=== PATIENT | female | born 1965 | race African-American/Black ===

== ENCOUNTER 2018-04-11 12:47 | Emergency (ER) | payer MEDICAID ==
[~2018-04-11] VITALS: Ht 167.6 cm; Wt 64.0 kg
[~2018-04-11 12:47] MED LIST: AMLO10TA4 PO; LISI-186 PO
[2018-04-11] MEDS ORDERED: MORPHINE SULFATE 4 MG/ML CPJ (NOT FOR IM USE) IV ONE (13:45)
[2018-04-11] MEDS ORDERED: HYDRALAZINE 20MG/ML VIAL IV ONE (19:00)
[2018-04-11 19:27] VITALS: BP 158/103
== END 2018-04-11 19:28 | disposition short-term general hospital (02) ==
LOC: ER 12:47
DX: S02.2XXA Fracture of nasal bones, initial encounter for closed fracture (principal); S09.8XXA Other specified injuries of head, initial encounter; I10 Essential (primary) hypertension; Y08.89XA Assault by other specified means, initial encounter; Y93.89 Activity, other specified; Y92.89 Other specified places as the place of occurrence of the external cause; Y99.8 Other external cause status; Z98.890 Other specified postprocedural states
CPT/HCPCS: 70450; 70486; 96374; 96375; 99285; J0360; J2270

== ENCOUNTER 2018-05-03 02:20 | Inpatient (IN) | payer MEDICAID ==
[~2018-05-03] VITALS: Ht 167.6 cm; Wt 51.9 kg
[2018-05-03] MEDS ORDERED: ASPIRIN 81MG TABLET PO ONE (03:15)
[2018-05-03 03:23] LABS: BASOPHILS % 0.9 % (0.0-2.0); EOSINOPHILS % 1.4 % (0.0-5.0); HEMATOCRIT. 43.9 % (36.0-48.0); HEMOGLOBIN. 14.3 g/dL (12.0-16.0); LYMPHOCYTES % 29.4 % (20.0-50.0); MEAN CORPUSCULAR HEMOGLOBIN 30.8 pg (28.0-32.0); MEAN CORPUSCULAR VOLUME 94.4 fL (81.0-99.0); MEAN PLATELET VOLUME 8.4 fl (7.4-10.4); MONOCYTES % 6.1 % (2.0-8.0); NEUTROPHILS % 62.2 % (40.0-76.0); PLATELET 237 x1000/uL (130-400); RED BLOOD CELL COUNT 4.65 mill/uL (4.2-5.4); RED CELL DISTRIBUTION WIDTH 13.7 % (11.6-14.6)
[2018-05-03 03:28] LABS: CHLORIDE 109 mEq/L (98-107)
[2018-05-03] MEDS ORDERED: ONDANSETRON HCL 4MG/2ML INJ IV PRN (06:00)
[2018-05-03] MEDS ORDERED: ACETAMINOPHEN 325MG TABLET PO PRN (06:00)
[2018-05-03] MEDS ORDERED: GUAIFENESIN 200MG/10ML SUGAR FREE UDC PO PRN (06:00)
[2018-05-03] MEDS ORDERED: CLONIDINE 0.1MG TABLET PO PRN (06:00)
[2018-05-03] MEDS ORDERED: HYDROMORPHONE HCL/PF 2MG/ML CPJ IV PRN (06:00)
[2018-05-03] MEDS ORDERED: DOCUSATE SODIUM 100MG CAPSULE PO PRN (06:00)
[2018-05-03] MEDS: HYDROCODONE/ACETAMINOPHEN 5/325MG TABLET PO PRN ×3 (09:40→20:01)
[2018-05-03 11:00] VITALS: BP 151/87
[2018-05-03 12:07] VITALS: BP 151/87
[2018-05-03] MEDS: ASPIRIN 81MG EC TABLET PO SCH (13:47)
[2018-05-03] MEDS: AMLODIPINE 10MG TABLET PO SCH (13:47)
[2018-05-03] MEDS: ENOXAPARIN 40MG/0.4ML SYR SUBCUT SCH (13:54)
[2018-05-03 16:27] VITALS: BP 121/85
[2018-05-03 20:00] VITALS: BP 126/81
[2018-05-04] VITALS: BP 137/82
[2018-05-04 04:00] VITALS: BP 132/94
[2018-05-04] MEDS: HYDROCODONE/ACETAMINOPHEN 5/325MG TABLET PO PRN (06:18)
[2018-05-04 07:17] LABS: BASOPHILS % 1.3 % (0.0-2.0); EOSINOPHILS % 3.7 % (0.0-5.0); HEMATOCRIT. 42.5 % (36.0-48.0); HEMOGLOBIN. 13.8 g/dL (12.0-16.0); MEAN CORPUSCULAR HEMOGLOBIN 30.8 pg (28.0-32.0); MEAN CORPUSCULAR VOLUME 94.7 fL (81.0-99.0); MEAN PLATELET VOLUME 8.7 fl (7.4-10.4); PLATELET 224 x1000/uL (130-400); RED BLOOD CELL COUNT 4.48 mill/uL (4.2-5.4); RED CELL DISTRIBUTION WIDTH 13.7 % (11.6-14.6)
[2018-05-04 07:28] LABS: *AMPHETAMINES SCREEN URINE NEGATIVE (NEGATIVE); *BARBITURATES SCREEN URINE NEGATIVE (NEGATIVE); CANNABINOID URINE SCREEN NEGATIVE (NEGATIVE); METHADONE URINE SCREEN NEGATIVE (NEGATIVE); OPIATES URINE SCREEN PRESUMTIVE POSITIVE (NEGATIVE); PHENCYCLIDINE URINE SCREEN NEGATIVE (NEGATIVE)
[2018-05-04 07:29] LABS: *BENZODIAZEPINES SCREEN URINE NEGATIVE (NEGATIVE); *COCAINE SCREEN URINE PRESUMTIVE POSITIVE (NEGATIVE)
[2018-05-04 08:00] VITALS: BP 128/71
[2018-05-04 08:00] LABS: CHLORIDE 111 mEq/L (98-107)
[2018-05-04 08:13] LABS: LDL CHOLESTEROL 90 mg/dL (5-100)
[2018-05-04 08:14] LABS: HDL CHOLESTEROL 43 mg/dL (40-59)
[2018-05-04] MEDS ORDERED: REGADENOSON 0.4 MG/5 ML IV ONE (09:00)
[2018-05-04] MEDS: AMLODIPINE 10MG TABLET PO SCH (09:03)
[2018-05-04] MEDS: ASPIRIN 81MG EC TABLET PO SCH (09:03)
[2018-05-04 10:42] LABS: T4 FREE 0.88 ng/dL (0.76-1.46)
[2018-05-04 12:00] VITALS: BP 134/89
[2018-05-04] MEDS: ENOXAPARIN 40MG/0.4ML SYR SUBCUT SCH (12:00)
[2018-05-04 15:53] LABS: CREATINE KINASE 114 IU/L (26-192)
[2018-05-04 15:54] LABS: CREATINE KINASE MB FRACTION < 1.0 ng/mL (0.5-3.6)
[2018-05-04 16:08] VITALS: BP 139/75
[2018-05-05] MEDS ORDERED: ASPIRIN 81MG TABLET PO SCH (09:00)
== END 2018-05-04 18:10 | disposition home or self-care (01) | DRG 198 ==
LOC: ER 02:20 → 5WST 05:34 → ENRESERV 10:18
PROVIDERS: ADMIT Hospitalist; ATTEND Hospitalist
DX: I24.9 Acute ischemic heart disease, unspecified (principal); N17.9 Acute kidney failure, unspecified; E87.8 Other disorders of electrolyte and fluid balance, not elsewhere classified; F17.200 Nicotine dependence, unspecified, uncomplicated; F14.10 Cocaine abuse, uncomplicated; I10 Essential (primary) hypertension; Z82.49 Family history of ischemic heart disease and other diseases of the circulatory system; Z79.899 Other long term (current) drug therapy
CPT/HCPCS: 36415; 71045; 80061; 80305; 82550; 82553; 83036; 83880; 84439; 84443; 84484; 85379; 93005; 93306; 93970; 99285; J1650

== ENCOUNTER 2018-08-20 19:09 | Inpatient (IN) | payer MEDICAID ==
[~2018-08-20] VITALS: Ht 167.6 cm; Wt 60.3 kg
[2018-08-20] MEDS ORDERED: SODIUM CHLORIDE 0.9% 1,000 ML IV ONE (19:23)
[2018-08-20] MEDS ORDERED: ONDANSETRON HCL 4MG/2ML INJ IV NR (19:23)
[2018-08-20 19:54] LABS: BASOPHILS % 1.1 % (0.0-2.0); EOSINOPHILS % 1.3 % (0.0-5.0); HEMATOCRIT. 40.1 % (36.0-48.0); HEMOGLOBIN. 13.4 g/dL (12.0-16.0); LYMPHOCYTES % 31.9 % (20.0-50.0); MEAN CORPUSCULAR HEMOGLOBIN 31.5 pg (28.0-32.0); MEAN CORPUSCULAR VOLUME 94.4 fL (81.0-99.0); MEAN PLATELET VOLUME 7.6 fl (7.4-10.4); MONOCYTES % 7.7 % (2.0-8.0); PLATELET 163 x1000/uL (130-400); RED BLOOD CELL COUNT 4.25 mill/uL (4.2-5.4); RED CELL DISTRIBUTION WIDTH 14.1 % (11.6-14.6)
[2018-08-20 20:00] LABS: CHLORIDE 112 mEq/L (98-107)
[2018-08-20 20:04] LABS: ETHANOL BLOOD < 10 mg/dL
[2018-08-20 22:52] LABS: CLARITY URINE CLEAR (CLEAR); COLOR URINE YELLOW (YELLOW); KETONES URINE TRACE (NEGATIVE); LEUKOCYTE ESTERASE URINE TRACE (NEGATIVE); NITRITE URINE NEGATIVE (NEGATIVE); OCCULT BLOOD URINE NEGATIVE (NEGATIVE); PH URINE 5.5 (4.5-8.0); PROTEIN URINE 1+ (NEGATIVE); SPECIFIC GRAVITY URINE 1.022 (1.005-1.030)
[2018-08-20 23:03] LABS: *AMPHETAMINES SCREEN URINE NEGATIVE (NEGATIVE); *BARBITURATES SCREEN URINE NEGATIVE (NEGATIVE); *BENZODIAZEPINES SCREEN URINE NEGATIVE (NEGATIVE); *COCAINE SCREEN URINE PRESUMTIVE POSITIVE (NEGATIVE); CANNABINOID URINE SCREEN NEGATIVE (NEGATIVE); OPIATES URINE SCREEN NEGATIVE (NEGATIVE); PHENCYCLIDINE URINE SCREEN PRESUMTIVE POSITIVE (NEGATIVE)
[2018-08-20 23:04] LABS: METHADONE URINE SCREEN NEGATIVE (NEGATIVE)
[2018-08-21] VITALS (8 sets, daily range): BP systolic 125–143; BP diastolic 80–95
[2018-08-21] MEDS ORDERED: ACETAMINOPHEN 325MG TABLET PO PRN
[2018-08-21] MEDS ORDERED: ONDANSETRON HCL 4MG/2ML INJ IV PRN
[2018-08-21] MEDS ORDERED: HYDROCODONE/ACETAMINOPHEN 5/325MG TABLET PO PRN
[2018-08-21] MEDS: SODIUM CHLORIDE 0.9% 1,000 ML IV SCH (07:15)
[2018-08-21 07:39] LABS: CHLORIDE 116 mEq/L (98-107)
[2018-08-21 07:41] LABS: EOSINOPHILS % 2.4 % (0.0-5.0); HEMATOCRIT. 39.8 % (36.0-48.0); HEMOGLOBIN. 13.3 g/dL (12.0-16.0); LYMPHOCYTES % 38.4 % (20.0-50.0); MEAN CORPUSCULAR HEMOGLOBIN 31.4 pg (28.0-32.0); MEAN CORPUSCULAR VOLUME 93.8 fL (81.0-99.0); MEAN PLATELET VOLUME 7.8 fl (7.4-10.4); MONOCYTES % 8.4 % (2.0-8.0); NEUTROPHILS % 49.8 % (40.0-76.0); PLATELET 173 x1000/uL (130-400); RED BLOOD CELL COUNT 4.24 mill/uL (4.2-5.4); RED CELL DISTRIBUTION WIDTH 14.2 % (11.6-14.6)
[2018-08-21] MEDS ORDERED: APIXABAN 5 MG TABLET PO SCH (11:45)
[2018-08-21] MEDS: ENOXAPARIN 40MG/0.4ML SYR SUBCUT SCH (17:25)
[2018-08-22] VITALS: BP 142/89
[2018-08-22] MEDS: SODIUM CHLORIDE 0.9% 1,000 ML IV SCH ×2 (00:05→13:09)
[2018-08-22 04:00] VITALS: BP 143/97
[2018-08-22 08:00] VITALS: BP 145/97
[2018-08-22] MEDS: ENOXAPARIN 40MG/0.4ML SYR SUBCUT SCH (09:11)
[2018-08-22] MEDS ORDERED: ASPIRIN 81MG EC TABLET PO SCH (11:45)
[2018-08-22 12:00] VITALS: BP 149/116
[2018-08-22] MEDS ORDERED: ENOXAPARIN 60MG/0.6ML SYR SUBCUT SCH (18:00)
[2018-08-22] MEDS ORDERED: ATORVASTATIN CALCIUM 20MG TABLET PO SCH (21:00)
== END 2018-08-22 14:40 | disposition left against medical advice (07) | DRG 48 ==
LOC: ER 20:19 → 5WST 22:23 → EDBEDREQ 22:24 → EDBEDREQTM 22:24 → SUPCPDRO 23:48 → ENRESERV 08-21 03:08 → 5WST 08-21 05:41
PROVIDERS: ADMIT Hospitalist; ATTEND Hospitalist
DX: G90.8 Other disorders of autonomic nervous system (principal); N17.0 Acute kidney failure with tubular necrosis; I95.9 Hypotension, unspecified; F19.10 Other psychoactive substance abuse, uncomplicated; F14.90 Cocaine use, unspecified, uncomplicated; I10 Essential (primary) hypertension; F17.210 Nicotine dependence, cigarettes, uncomplicated
CPT/HCPCS: 36415; 71045; 80305; 80320; 83605; 83880; 84484; 93005; 93306; 93970; 96372; 96374; 99285; J1650; J2405; G0480

== ENCOUNTER 2018-09-12 11:09 | Inpatient (IN) | payer MEDICAID ==
[~2018-09-12] VITALS: Ht 167.6 cm; Wt 49.9 kg
[2018-09-12] MEDS ORDERED: ASPIRIN 81MG TABLET PO ONE (12:15)
[2018-09-12 12:28] LABS: HEMATOCRIT. 43.8 % (36.0-48.0); HEMOGLOBIN. 14.3 g/dL (12.0-16.0); MEAN CORPUSCULAR HEMOGLOBIN 31.4 pg (28.0-32.0); MEAN CORPUSCULAR VOLUME 96.4 fL (81.0-99.0); RED BLOOD CELL COUNT 4.55 mill/uL (4.2-5.4); RED CELL DISTRIBUTION WIDTH 14.7 % (11.6-14.6)
[2018-09-12 12:33] LABS: CHLORIDE 114 mEq/L (98-107)
[2018-09-12 12:36] LABS: CLARITY URINE CLOUDY (CLEAR); COLOR URINE DARK YELLOW (YELLOW); INR 1.1; KETONES URINE TRACE (NEGATIVE); LEUKOCYTE ESTERASE URINE 1+ (NEGATIVE); NITRITE URINE NEGATIVE (NEGATIVE); OCCULT BLOOD URINE NEGATIVE (NEGATIVE); PARTIAL THROMBOPLASTIN TIME 20.3 sec (23.4-31.0); PROTEIN URINE TRACE (NEGATIVE); PROTHROMBIN TIME 10.8 sec (9.6-11.0)
[2018-09-12 12:40] LABS: *AMPHETAMINES SCREEN URINE PRESUMTIVE POSITIVE (NEGATIVE); CANNABINOID URINE SCREEN NEGATIVE (NEGATIVE); OPIATES URINE SCREEN NEGATIVE (NEGATIVE); PHENCYCLIDINE URINE SCREEN PRESUMTIVE POSITIVE (NEGATIVE)
[2018-09-12 12:41] LABS: *BARBITURATES SCREEN URINE NEGATIVE (NEGATIVE); *BENZODIAZEPINES SCREEN URINE NEGATIVE (NEGATIVE); *COCAINE SCREEN URINE PRESUMTIVE POSITIVE (NEGATIVE); METHADONE URINE SCREEN NEGATIVE (NEGATIVE)
[2018-09-12] MEDS ORDERED: ENOXAPARIN 40MG/0.4ML SYR SUBCUT ONE (13:15)
[2018-09-12 15:40] VITALS: BP_SYST 141; BP_SYST 144; BP_DIAS 99
[2018-09-12 16:00] VITALS: BP 136/93
[2018-09-12] MEDS ORDERED: NA PHOS,M-B/NA PHOS,DI-BA ENEMA 118ML PR PRN (17:30)
[2018-09-12] MEDS ORDERED: CLONIDINE 0.1MG TABLET PO PRN (17:30)
[2018-09-12] MEDS ORDERED: LORAZEPAM 2MG/ML CPJ IV PRN (17:30)
[2018-09-12] MEDS ORDERED: HYDRALAZINE 20MG/ML VIAL IV PRN (17:30)
[2018-09-12] MEDS ORDERED: MAGNESIUM/ALUMINUM HYDROXIDE/SIMETHICONE 30ML UDC PO PRN (17:30)
[2018-09-12] MEDS ORDERED: HYDROMORPHONE HCL/PF 2MG/ML CPJ IV PRN (17:30)
[2018-09-12] MEDS ORDERED: HYDROCODONE/ACETAMINOPHEN 10/325MG TABLET PO PRN (17:30)
[2018-09-12] MEDS ORDERED: DOCUSATE SODIUM 100MG CAPSULE PO PRN (17:30)
[2018-09-12] MEDS ORDERED: IPRATROPIUM/ALBUTEROL 0.5-3(2.5)MG/3ML NEB INH PRN (17:30)
[2018-09-12] MEDS ORDERED: ONDANSETRON HCL 4MG/2ML INJ IV PRN (17:30)
[2018-09-12] MEDS ORDERED: GUAIFENESIN 200MG/10ML SUGAR FREE UDC PO PRN (17:30)
[2018-09-12] MEDS ORDERED: DIPHENHYDRAMINE 50MG/ML VIAL IV PRN (17:30)
[2018-09-12] MEDS ORDERED: ACETAMINOPHEN 325MG TABLET PO PRN (17:30)
[2018-09-12 20:00] VITALS: BP 134/60
[2018-09-13] VITALS: BP 154/91
[2018-09-13 00:17] LABS: CREATINE KINASE MB FRACTION 1.9 ng/mL (0.5-3.6)
[2018-09-13 04:00] VITALS: BP 160/93
[2018-09-13] MEDS: SODIUM CHLORIDE 0.9% INJ 3ML FLUSH IVF SCH ×3 (05:09→21:16)
[2018-09-13] MEDS: ASPIRIN 81MG EC TABLET PO SCH (08:14)
[2018-09-13] MEDS: ENOXAPARIN 40MG/0.4ML SYR SUBCUT SCH (08:14)
[2018-09-13 09:29] LABS: BASOPHILS % 0.4 % (0.0-2.0); EOSINOPHILS % 1.8 % (0.0-5.0); HEMATOCRIT. 40.9 % (36.0-48.0); HEMOGLOBIN. 13.3 g/dL (12.0-16.0); LYMPHOCYTES % 16.8 % (20.0-50.0); MEAN CORPUSCULAR VOLUME 95.4 fL (81.0-99.0); MEAN PLATELET VOLUME 8.8 fl (7.4-10.4); MONOCYTES % 5.6 % (2.0-8.0); NEUTROPHILS % 75.4 % (40.0-76.0); PLATELET 234 x1000/uL (130-400); RED BLOOD CELL COUNT 4.29 mill/uL (4.2-5.4); RED CELL DISTRIBUTION WIDTH 14.3 % (11.6-14.6)
[2018-09-13 09:36] LABS: CHLORIDE 113 mEq/L (98-107)
[2018-09-13 09:48] LABS: LDL CHOLESTEROL 62 mg/dL (5-100)
[2018-09-13 09:49] LABS: CREATINE KINASE 190 IU/L (26-192)
[2018-09-13 09:50] LABS: CREATINE KINASE MB FRACTION 1.3 ng/mL (0.5-3.6); T4 FREE 0.95 ng/dL (0.76-1.46)
[2018-09-13 09:51] LABS: HDL CHOLESTEROL 38 mg/dL (40-59)
[2018-09-13] MEDS ORDERED: AMLODIPINE 5MG TABLET PO SCH (13:45)
[2018-09-13] MEDS: NITROGLYCERIN OINT 1GM/INCH UDPKT TD SCH ×2 (14:43→21:18)
[2018-09-13] MEDS: AMLODIPINE 5MG TABLET PO SCH (21:14)
[2018-09-14 05:29] LABS: BASOPHILS % 0.7 % (0.0-2.0); EOSINOPHILS % 1.8 % (0.0-5.0); HEMATOCRIT. 40.2 % (36.0-48.0); HEMOGLOBIN. 13.5 g/dL (12.0-16.0); MEAN CORPUSCULAR HEMOGLOBIN 31.8 pg (28.0-32.0); MEAN CORPUSCULAR VOLUME 94.7 fL (81.0-99.0); MEAN PLATELET VOLUME 8.9 fl (7.4-10.4); MONOCYTES % 5.3 % (2.0-8.0); NEUTROPHILS % 72.2 % (40.0-76.0); PLATELET 230 x1000/uL (130-400); RED BLOOD CELL COUNT 4.24 mill/uL (4.2-5.4); RED CELL DISTRIBUTION WIDTH 13.8 % (11.6-14.6)
[2018-09-14 05:32] LABS: CHLORIDE 109 mEq/L (98-107)
[2018-09-14 06:00] VITALS: BP 161/93
[2018-09-14] MEDS: NITROGLYCERIN OINT 1GM/INCH UDPKT TD SCH (06:00)
[2018-09-14] MEDS: SODIUM CHLORIDE 0.9% INJ 3ML FLUSH IVF SCH (06:21)
[2018-09-14 08:00] VITALS: BP 135/89
[2018-09-14] MEDS: ASPIRIN 81MG EC TABLET PO SCH (08:55)
[2018-09-14] MEDS: ENOXAPARIN 40MG/0.4ML SYR SUBCUT SCH (08:55)
[2018-09-14] MEDS: AMLODIPINE 5MG TABLET PO SCH (08:55)
[2018-09-14 10:23] VITALS: BP 135/89
== END 2018-09-14 11:35 | disposition home or self-care (01) | DRG 203 ==
LOC: ER 12:14 → 8WST 14:00 → EDBEDREQ 14:02
PROVIDERS: ADMIT Internal Medicine; ATTEND Internal Medicine
DX: M94.0 Chondrocostal junction syndrome [Tietze] (principal); N17.0 Acute kidney failure with tubular necrosis; E78.00 Pure hypercholesterolemia, unspecified; F15.10 Other stimulant abuse, uncomplicated; I10 Essential (primary) hypertension; R79.89 Other specified abnormal findings of blood chemistry; F17.200 Nicotine dependence, unspecified, uncomplicated; J44.9 Chronic obstructive pulmonary disease, unspecified; Z79.899 Other long term (current) drug therapy; Z82.49 Family history of ischemic heart disease and other diseases of the circulatory system; Z68.1 Body mass index [BMI] 19.9 or less, adult
CPT/HCPCS: 36415; 71045; 80048; 80061; 80305; 82550; 82553; 83880; 84439; 84443; 84484; 93005; 96372; 99285; J1650

== ENCOUNTER 2018-10-03 11:05 | Emergency (ER) | payer SELFPAY ==
[~2018-10-03] VITALS: Ht 167.6 cm; Wt 51.0 kg
[2018-10-03] MEDS ORDERED: ASPIRIN 81MG TABLET PO ONE (12:00)
[2018-10-03 12:36] LABS: BASOPHILS % 1.1 % (0.0-2.0); EOSINOPHILS % 2.4 % (0.0-5.0); HEMATOCRIT. 43.6 % (36.0-48.0); HEMOGLOBIN. 14.5 g/dL (12.0-16.0); LYMPHOCYTES % 22.4 % (20.0-50.0); MEAN CORPUSCULAR HEMOGLOBIN 31.9 pg (28.0-32.0); MEAN CORPUSCULAR VOLUME 96.2 fL (81.0-99.0); MONOCYTES % 9.8 % (2.0-8.0); NEUTROPHILS % 64.3 % (40.0-76.0); PLATELET 210 x1000/uL (130-400); RED BLOOD CELL COUNT 4.53 mill/uL (4.2-5.4); RED CELL DISTRIBUTION WIDTH 14.8 % (11.6-14.6)
[2018-10-03 12:47] LABS: CHLORIDE 110 mEq/L (98-107)
[2018-10-03 17:24] VITALS: BP 127/85
== END 2018-10-03 17:25 | disposition home or self-care (01) ==
LOC: ER 11:05
DX: R07.9 Chest pain, unspecified (principal); I10 Essential (primary) hypertension; I25.2 Old myocardial infarction; E78.00 Pure hypercholesterolemia, unspecified; E78.5 Hyperlipidemia, unspecified; Z79.899 Other long term (current) drug therapy
CPT/HCPCS: 36415; 71046; 83880; 84484; 85379; 93005; 99284

== ENCOUNTER 2018-10-18 05:24 | Emergency (ER) | payer MEDICAID ==
[~2018-10-18] VITALS: Ht 165.1 cm; Wt 64.0 kg
[2018-10-18] MEDS ORDERED: HYDRALAZINE 20MG/ML VIAL IV ONE ×2 (06:30→09:45)
[2018-10-18] MEDS ORDERED: DIPHENHYDRAMINE 50MG/ML VIAL IV ONE (06:30)
[2018-10-18] MEDS ORDERED: METOCLOPRAMIDE HCL 10MG/2ML VIAL IV ONE (06:30)
[2018-10-18] MEDS ORDERED: SODIUM CHLORIDE 0.9% 1,000 ML IV ONE (06:30)
[2018-10-18 06:34] LABS: BASOPHILS % 0.9 % (0.0-2.0); EOSINOPHILS % 0.7 % (0.0-5.0); HEMATOCRIT. 43.5 % (36.0-48.0); HEMOGLOBIN. 14.7 g/dL (12.0-16.0); LYMPHOCYTES % 12.4 % (20.0-50.0); MEAN CORPUSCULAR HEMOGLOBIN 32.7 pg (28.0-32.0); MEAN CORPUSCULAR VOLUME 96.9 fL (81.0-99.0); MEAN PLATELET VOLUME 8.1 fl (7.4-10.4); MONOCYTES % 4.5 % (2.0-8.0); NEUTROPHILS % 81.5 % (40.0-76.0); PLATELET 211 x1000/uL (130-400); RED BLOOD CELL COUNT 4.49 mill/uL (4.2-5.4)
[2018-10-18 06:39] LABS: CHLORIDE 111 mEq/L (98-107)
[2018-10-18 06:43] LABS: ETHANOL BLOOD 14 mg/dL
[2018-10-18 07:40] LABS: CLARITY URINE CLEAR (CLEAR); COLOR URINE YELLOW (YELLOW); KETONES URINE NEGATIVE (NEGATIVE); LEUKOCYTE ESTERASE URINE NEGATIVE (NEGATIVE); NITRITE URINE NEGATIVE (NEGATIVE); OCCULT BLOOD URINE NEGATIVE (NEGATIVE); PROTEIN URINE TRACE (NEGATIVE)
[2018-10-18 07:58] LABS: *AMPHETAMINES SCREEN URINE NEGATIVE (NEGATIVE); *BARBITURATES SCREEN URINE NEGATIVE (NEGATIVE); *COCAINE SCREEN URINE PRESUMTIVE POSITIVE (NEGATIVE)
[2018-10-18 07:59] LABS: *BENZODIAZEPINES SCREEN URINE NEGATIVE (NEGATIVE); CANNABINOID URINE SCREEN NEGATIVE (NEGATIVE); METHADONE URINE SCREEN NEGATIVE (NEGATIVE); OPIATES URINE SCREEN NEGATIVE (NEGATIVE); PHENCYCLIDINE URINE SCREEN NEGATIVE (NEGATIVE)
[2018-10-18] MEDS ORDERED: KETOROLAC 15MG/ML VIAL IV ONE (08:30)
[2018-10-18] MEDS ORDERED: CLONIDINE 0.2MG TABLET PO ONE (08:30)
[2018-10-18 10:41] VITALS: BP 132/96
== END 2018-10-18 10:53 | disposition home or self-care (01) ==
LOC: ER 05:24
DX: I10 Essential (primary) hypertension (principal); Z91.14 Patient's other noncompliance with medication regimen; F14.10 Cocaine abuse, uncomplicated; Z72.89 Other problems related to lifestyle; F17.210 Nicotine dependence, cigarettes, uncomplicated
CPT/HCPCS: 36415; 70450; 71045; 80053; 80305; 80320; 81003; 85025; 93005; 96374; 96375; 96376; 99284; J0360; J1200; J1885; J2765; J7030; Z7610; G0480

== ENCOUNTER 2019-04-12 01:19 | Emergency (ER) | payer MEDICAID ==
[~2019-04-12] VITALS: Ht 160 cm; Wt 549.0 kg
[2019-04-12 04:24] VITALS: BP 125/89
[2019-04-12 04:33] LABS: BASOPHILS % 0.5 % (0.0-2.0); EOSINOPHILS % 0.5 % (0.0-5.0); HEMATOCRIT. 41.8 % (36.0-48.0); LYMPHOCYTES % 32.2 % (20.0-50.0); MEAN CORPUSCULAR HEMOGLOBIN 31.3 pg (28.0-32.0); MEAN CORPUSCULAR VOLUME 93.9 fL (81.0-99.0); MEAN PLATELET VOLUME 7.5 fl (7.4-10.4); MONOCYTES % 9.4 % (2.0-8.0); NEUTROPHILS % 57.4 % (40.0-76.0); PLATELET 216 x1000/uL (130-400); RED BLOOD CELL COUNT 4.45 mill/uL (4.2-5.4); RED CELL DISTRIBUTION WIDTH 13.9 % (11.6-14.6)
== END 2019-04-12 06:31 | disposition home or self-care (01) ==
LOC: ER 01:19
DX: I10 Essential (primary) hypertension (principal); Z76.0 Encounter for issue of repeat prescription
CPT/HCPCS: 36415; 80048; 85025; 99283

== ENCOUNTER 2019-05-14 02:59 | Inpatient (IN) | payer MEDICAID ==
[~2019-05-14] VITALS: Ht 165.1 cm; Wt 52.6 kg
[2019-05-14] MEDS ORDERED: ASPIRIN 81MG TABLET PO ONE (03:45)
[2019-05-14 04:04] LABS: BASOPHILS % 1.3 % (0.0-2.0); EOSINOPHILS % 0.9 % (0.0-5.0); HEMATOCRIT. 43.7 % (36.0-48.0); HEMOGLOBIN. 14.3 g/dL (12.0-16.0); LYMPHOCYTES % 18.6 % (20.0-50.0); MEAN CORPUSCULAR HEMOGLOBIN 31.1 pg (28.0-32.0); MEAN CORPUSCULAR VOLUME 95.1 fL (81.0-99.0); MEAN PLATELET VOLUME 8.3 fl (7.4-10.4); MONOCYTES % 5.6 % (2.0-8.0); NEUTROPHILS % 73.6 % (40.0-76.0); PLATELET 219 x1000/uL (130-400); RED CELL DISTRIBUTION WIDTH 14.3 % (11.6-14.6)
[2019-05-14 04:13] LABS: CHLORIDE 109 mEq/L (98-107)
[2019-05-14] MEDS ORDERED: KETOROLAC 15MG/ML VIAL IV ONE (05:15)
[2019-05-14] MEDS ORDERED: LISINOPRIL 5MG TABLET PO ONE (05:15)
[2019-05-14] MEDS ORDERED: AMLODIPINE 10MG TABLET PO ONE (05:15)
[2019-05-14] MEDS ORDERED: HYDROCODONE/ACETAMINOPHEN 5/325MG TABLET PO PRN ×2 (12:30→18:45)
[2019-05-14] MEDS ORDERED: MORPHINE SULFATE 2 MG/ML CPJ (NOT FOR IM USE) IV PRN (12:30)
[2019-05-14 17:40] VITALS: BP 131/93
[2019-05-14] MEDS ORDERED: ASPI-1497 MT (18:35)
[2019-05-14] MEDS ORDERED: NITROGLYCERIN 0.4MG TABLET SL SL PRN (18:45)
[2019-05-14] MEDS ORDERED: GUAIFENESIN 200MG/10ML SUGAR FREE UDC PO PRN (18:45)
[2019-05-14] MEDS ORDERED: LABETALOL 5MG/ML SYR 20 MG/4 ML SYRINGE IV PRN (18:45)
[2019-05-14] MEDS ORDERED: ACETAMINOPHEN 650MG/20.3ML UDC PO PRN (18:45)
[2019-05-14] MEDS ORDERED: IPRATROPIUM/ALBUTEROL 0.5-3(2.5)MG/3ML NEB HHN PRN (18:45)
[2019-05-14] MEDS ORDERED: ONDANSETRON HCL 4MG/2ML INJ IV PRN ×2 (18:45)
[2019-05-14] MEDS ORDERED: LORAZEPAM 0.5MG TABLET PO PRN (18:45)
[2019-05-14] MEDS ORDERED: CLONIDINE 0.1MG TABLET PO PRN (18:45)
[2019-05-14] MEDS ORDERED: DOCUSATE SODIUM 100MG CAPSULE PO PRN (18:45)
[2019-05-14 20:00] VITALS: BP 113/74
[2019-05-14] MEDS: ASPIRIN 81MG EC TABLET PO SCH (21:01)
[2019-05-15] VITALS (8 sets, daily range): BP systolic 107–122; BP diastolic 64–77
[2019-05-15 07:21] LABS: CHLORIDE 112 mEq/L (98-107)
[2019-05-15 07:34] LABS: LDL CHOLESTEROL 87 mg/dL (5-100)
[2019-05-15 07:37] LABS: HDL CHOLESTEROL 42 mg/dL (40-59)
[2019-05-15 07:38] LABS: BASOPHILS % 1.5 % (0.0-2.0); EOSINOPHILS % 3.7 % (0.0-5.0); HEMATOCRIT. 41.2 % (36.0-48.0); HEMOGLOBIN. 13.3 g/dL (12.0-16.0); LYMPHOCYTES % 53.4 % (20.0-50.0); MEAN CORPUSCULAR HEMOGLOBIN 30.7 pg (28.0-32.0); MEAN CORPUSCULAR VOLUME 95.3 fL (81.0-99.0); MEAN PLATELET VOLUME 8.7 fl (7.4-10.4); MONOCYTES % 6.7 % (2.0-8.0); NEUTROPHILS % 34.7 % (40.0-76.0); PLATELET 208 x1000/uL (130-400); RED BLOOD CELL COUNT 4.32 mill/uL (4.2-5.4); RED CELL DISTRIBUTION WIDTH 13.8 % (11.6-14.6)
[2019-05-15] MEDS: ASPIRIN 81MG EC TABLET PO SCH (09:29)
[2019-05-15 18:41] LABS: METHADONE URINE SCREEN NEGATIVE (NEGATIVE); OPIATES URINE SCREEN PRESUMTIVE POSITIVE (NEGATIVE)
[2019-05-15 18:42] LABS: *AMPHETAMINES SCREEN URINE NEGATIVE (NEGATIVE); *BARBITURATES SCREEN URINE NEGATIVE (NEGATIVE); *BENZODIAZEPINES SCREEN URINE NEGATIVE (NEGATIVE); *COCAINE SCREEN URINE PRESUMTIVE POSITIVE (NEGATIVE); CANNABINOID URINE SCREEN NEGATIVE (NEGATIVE); PHENCYCLIDINE URINE SCREEN PRESUMTIVE POSITIVE (NEGATIVE)
[2019-05-16 04:00] VITALS: BP 140/87
[2019-05-16 08:00] VITALS: BP 119/71
[2019-05-16] MEDS: ASPIRIN 81MG EC TABLET PO SCH (08:49)
[2019-05-16] MEDS ORDERED: AMLODIPINE 2.5MG TABLET PO SCH (09:00)
== END 2019-05-16 09:45 | disposition left against medical advice (07) | DRG 203 ==
LOC: ER 02:59 → 7WST 06:34 → EDBEDREQ 06:37 → EDBEDREQSVC 06:37 → EDBEDREQTM 06:37 → EDBEDREQSVC 07:31 → ENRESERV 15:47 → ER 18:06 → 5WST 05-15 10:50
PROVIDERS: ADMIT Internal Medicine; ATTEND Internal Medicine
DX: M94.0 Chondrocostal junction syndrome [Tietze] (principal); E87.8 Other disorders of electrolyte and fluid balance, not elsewhere classified; I11.9 Hypertensive heart disease without heart failure; F14.90 Cocaine use, unspecified, uncomplicated; I16.1 Hypertensive emergency; F19.10 Other psychoactive substance abuse, uncomplicated; Z53.29 Procedure and treatment not carried out because of patient's decision for other reasons; J44.9 Chronic obstructive pulmonary disease, unspecified; F17.210 Nicotine dependence, cigarettes, uncomplicated; Z79.899 Other long term (current) drug therapy; Z79.82 Long term (current) use of aspirin; Z82.3 Family history of stroke; Z82.49 Family history of ischemic heart disease and other diseases of the circulatory system
CPT/HCPCS: 36415; 71045; 80048; 80053; 80061; 80305; 83036; 83880; 84484; 85025; 93005; 93306; 99285; J1885; J2270; J2405

== ENCOUNTER 2019-05-27 02:09 | Inpatient (IN) | payer MEDICAID ==
[~2019-05-27] VITALS: Ht 167.6 cm; Wt 52.2 kg
[~2019-05-27 02:09] MED LIST changes: +ASPI-1497 MT
[2019-05-27] MEDS ORDERED: SODIUM CHLORIDE 0.9% 1,000 ML IV ONE (02:37)
[2019-05-27] MEDS ORDERED: ASPIRIN 81MG TABLET PO ONE (02:45)
[2019-05-27] MEDS ORDERED: NITROGLYCERIN 0.4MG TABLET SL SL PRN ×2 (02:45→14:00)
[2019-05-27 03:02] LABS: BASOPHILS % 1.2 % (0.0-2.0); EOSINOPHILS % 1.6 % (0.0-5.0); HEMATOCRIT. 39.1 % (36.0-48.0); LYMPHOCYTES % 27.3 % (20.0-50.0); MEAN CORPUSCULAR HEMOGLOBIN 31.5 pg (28.0-32.0); MEAN CORPUSCULAR VOLUME 94.7 fL (81.0-99.0); MEAN PLATELET VOLUME 8.3 fl (7.4-10.4); MONOCYTES % 7.5 % (2.0-8.0); NEUTROPHILS % 62.4 % (40.0-76.0); PLATELET 210 x1000/uL (130-400); RED BLOOD CELL COUNT 4.13 mill/uL (4.2-5.4); RED CELL DISTRIBUTION WIDTH 13.9 % (11.6-14.6)
[2019-05-27 03:12] LABS: CHLORIDE 112 mEq/L (98-107)
[2019-05-27 03:13] LABS: D-DIMER < 0.19 mg/L FEU (<0.50); INR 1.1; PARTIAL THROMBOPLASTIN TIME 26.4 sec (23.4-31.0); PROTHROMBIN TIME 11.5 sec (9.6-11.0)
[2019-05-27] MEDS ORDERED: CLONIDINE 0.1MG TABLET PO ONE (04:45)
[2019-05-27 10:00] VITALS: BP 137/89
[2019-05-27] MEDS ORDERED: ACETAMINOPHEN 325MG TABLET PO PRN (11:00)
[2019-05-27] MEDS ORDERED: GUAIFENESIN 200MG/10ML SUGAR FREE UDC PO PRN (11:00)
[2019-05-27] MEDS ORDERED: LORAZEPAM 0.5MG TABLET PO PRN (11:00)
[2019-05-27] MEDS ORDERED: ONDANSETRON HCL 4MG/2ML INJ IV PRN (11:00)
[2019-05-27] MEDS ORDERED: CLONIDINE 0.1MG TABLET PO PRN (11:00)
[2019-05-27] MEDS ORDERED: IPRATROPIUM/ALBUTEROL 0.5-3(2.5)MG/3ML NEB HHN PRN (11:00)
[2019-05-27] MEDS: HYDROCODONE/ACETAMINOPHEN 5/325MG TABLET PO PRN (11:43)
[2019-05-27 12:00] VITALS: BP 116/74
[2019-05-27] MEDS ORDERED: QUET200T PO (12:26)
[2019-05-27] MEDS ORDERED: MIRT15TA MT (12:28)
[2019-05-27] MEDS ORDERED: DEXTROSE 50% WATER 50ML SYRINGE IV PRN (13:15)
[2019-05-27] MEDS: QUETIAPINE FUMARATE 50MG TABLET PO SCH (15:14)
[2019-05-27] MEDS: AMLODIPINE 10MG TABLET PO SCH (15:15)
[2019-05-27 16:00] VITALS: BP 98/63
[2019-05-27] MEDS ORDERED: BLOOD SUGAR DIAGNOSTIC STRIP TEST SCH (16:45)
[2019-05-27] MEDS ORDERED: INSULIN LISPRO 100 UNITS/ML SUBCUT SCH (17:15)
[2019-05-27 20:00] VITALS: BP 104/66
[2019-05-27] MEDS: MIRTAZAPINE 15MG TABLET PO SCH (20:59)
[2019-05-28] VITALS: BP 117/83
[2019-05-28 04:00] VITALS: BP 112/71
[2019-05-28 08:00] VITALS: BP 152/98
[2019-05-28] MEDS: ASPIRIN 81MG EC TABLET PO SCH (08:38)
[2019-05-28] MEDS: AMLODIPINE 10MG TABLET PO SCH (08:38)
[2019-05-28] MEDS: QUETIAPINE FUMARATE 50MG TABLET PO SCH (08:38)
[2019-05-28] MEDS ORDERED: TOPUD PO (09:37)
[2019-05-28] MEDS: HYDROCODONE/ACETAMINOPHEN 5/325MG TABLET PO PRN (09:58)
[2019-05-28 12:00] VITALS: BP 107/65
[2019-05-28] MEDS: LOSARTAN POTASSIUM 25 MG TABLET PO SCH (13:01)
[2019-05-28 13:38] LABS: *AMPHETAMINES SCREEN URINE NEGATIVE (NEGATIVE)
[2019-05-28 13:39] LABS: *BARBITURATES SCREEN URINE NEGATIVE (NEGATIVE); *BENZODIAZEPINES SCREEN URINE NEGATIVE (NEGATIVE); *COCAINE SCREEN URINE PRESUMTIVE POSITIVE (NEGATIVE); CANNABINOID URINE SCREEN NEGATIVE (NEGATIVE); METHADONE URINE SCREEN NEGATIVE (NEGATIVE); OPIATES URINE SCREEN PRESUMTIVE POSITIVE (NEGATIVE); PHENCYCLIDINE URINE SCREEN NEGATIVE (NEGATIVE)
[2019-05-28 15:07] LABS: BASOPHILS % 1.4 % (0.0-2.0); EOSINOPHILS % 3.8 % (0.0-5.0); HEMATOCRIT. 39.4 % (36.0-48.0); LYMPHOCYTES % 26.7 % (20.0-50.0); MEAN CORPUSCULAR HEMOGLOBIN 31.2 pg (28.0-32.0); MEAN CORPUSCULAR VOLUME 94.5 fL (81.0-99.0); MEAN PLATELET VOLUME 8.5 fl (7.4-10.4); MONOCYTES % 9.2 % (2.0-8.0); NEUTROPHILS % 58.9 % (40.0-76.0); PLATELET 208 x1000/uL (130-400); RED BLOOD CELL COUNT 4.17 mill/uL (4.2-5.4); RED CELL DISTRIBUTION WIDTH 13.9 % (11.6-14.6)
[2019-05-28 15:09] LABS: CHLORIDE 112 mEq/L (98-107)
[2019-05-28 16:00] VITALS: BP 122/74
[2019-05-28 20:00] VITALS: BP 114/64
[2019-05-28] MEDS: MIRTAZAPINE 15MG TABLET PO SCH (20:02)
[2019-05-29] VITALS: BP 119/78
[2019-05-29 04:00] VITALS: BP 118/77
[2019-05-29 08:00] VITALS: BP 101/71
[2019-05-29] MEDS: LOSARTAN POTASSIUM 25 MG TABLET PO SCH (09:00)
[2019-05-29] MEDS: AMLODIPINE 10MG TABLET PO SCH (10:17)
[2019-05-29] MEDS: ASPIRIN 81MG EC TABLET PO SCH (10:17)
[2019-05-29] MEDS: QUETIAPINE FUMARATE 50MG TABLET PO SCH (10:17)
[2019-05-29 14:52] VITALS: BP 101/71
== END 2019-05-29 15:45 | disposition home or self-care (01) | DRG 816 ==
LOC: ER 02:22 → 5WST 04:40 → ENRESERV 09:32
PROVIDERS: ADMIT Internal Medicine; ATTEND Internal Medicine
DX: T40.5X1A Poisoning by cocaine, accidental (unintentional), initial encounter (principal); E87.8 Other disorders of electrolyte and fluid balance, not elsewhere classified; I13.10 Hypertensive heart and chronic kidney disease without heart failure, with stage 1 through stage 4 chronic kidney disease, or unspecified chronic kidney disease; F14.10 Cocaine abuse, uncomplicated; Y92.89 Other specified places as the place of occurrence of the external cause; R51 Headache; R07.89 Other chest pain; F19.10 Other psychoactive substance abuse, uncomplicated; N18.9 Chronic kidney disease, unspecified; J45.909 Unspecified asthma, uncomplicated; R07.81 Pleurodynia; R79.89 Other specified abnormal findings of blood chemistry; F16.10 Hallucinogen abuse, uncomplicated; Z79.82 Long term (current) use of aspirin; Z79.899 Other long term (current) drug therapy
CPT/HCPCS: 36415; 71045; 80048; 80053; 80305; 83880; 84484; 85025; 85379; 93005; 99285; J7030

== ENCOUNTER 2019-06-03 20:54 | Emergency (ER) | payer MEDICAID ==
[~2019-06-03] VITALS: Ht 160 cm; Wt 54.0 kg
[~2019-06-03 20:54] MED LIST changes: -LISI-186 PO; +MIRT15TA MT; +QUET200T PO; +TOPUD PO
[2019-06-03 23:44] LABS: CLARITY URINE CLEAR (CLEAR); COLOR URINE YELLOW (YELLOW); KETONES URINE NEGATIVE (NEGATIVE); LEUKOCYTE ESTERASE URINE NEGATIVE (NEGATIVE); NITRITE URINE NEGATIVE (NEGATIVE); OCCULT BLOOD URINE NEGATIVE (NEGATIVE); PH URINE 6.5 (4.5-8.0); PROTEIN URINE 1+ (NEGATIVE); SPECIFIC GRAVITY URINE 1.019 (1.005-1.030)
[2019-06-03 23:59] LABS: *AMPHETAMINES SCREEN URINE NEGATIVE (NEGATIVE); *BARBITURATES SCREEN URINE NEGATIVE (NEGATIVE); *BENZODIAZEPINES SCREEN URINE NEGATIVE (NEGATIVE); *COCAINE SCREEN URINE PRESUMTIVE POSITIVE (NEGATIVE); CANNABINOID URINE SCREEN NEGATIVE (NEGATIVE); METHADONE URINE SCREEN NEGATIVE (NEGATIVE); PHENCYCLIDINE URINE SCREEN NEGATIVE (NEGATIVE)
[2019-06-04 00:01] LABS: OPIATES URINE SCREEN NEGATIVE (NEGATIVE)
[2019-06-04 00:05] LABS: CHLORIDE 110 mEq/L (98-107)
[2019-06-04 00:10] LABS: BASOPHILS % 0.4 % (0.0-2.0); EOSINOPHILS % 1.9 % (0.0-5.0); HEMATOCRIT. 40.9 % (36.0-48.0); HEMOGLOBIN. 13.8 g/dL (12.0-16.0); LYMPHOCYTES % 20.3 % (20.0-50.0); MEAN CORPUSCULAR HEMOGLOBIN 31.9 pg (28.0-32.0); MEAN CORPUSCULAR VOLUME 94.4 fL (81.0-99.0); MEAN PLATELET VOLUME 8.4 fl (7.4-10.4); MONOCYTES % 9.6 % (2.0-8.0); NEUTROPHILS % 67.8 % (40.0-76.0); PLATELET 231 x1000/uL (130-400); RED BLOOD CELL COUNT 4.33 mill/uL (4.2-5.4); RED CELL DISTRIBUTION WIDTH 14.2 % (11.6-14.6)
[2019-06-04 00:11] LABS: ETHANOL BLOOD < 10 mg/dL
[2019-06-04] MEDS ORDERED: CLONIDINE 0.3MG TABLET PO ONE (00:30)
[2019-06-04 01:00] VITALS: BP 154/99
== END 2019-06-04 01:28 | disposition home or self-care (01) ==
LOC: ER 20:54
DX: F14.188 Cocaine abuse with other cocaine-induced disorder (principal); I10 Essential (primary) hypertension; F17.210 Nicotine dependence, cigarettes, uncomplicated; Z71.6 Tobacco abuse counseling; I25.2 Old myocardial infarction
CPT/HCPCS: 36415; 80053; 80305; 80320; 81003; 85025; 93005; 99284; 99406; G0480

== ENCOUNTER 2019-06-04 01:30 | Emergency (ER) | payer MEDICAID ==
[2019-06-04 02:40] VITALS: BP 139/75
== END 2019-06-04 03:57 | disposition home or self-care (01) ==
LOC: ER 01:30
DX: Z76.5 Malingerer [conscious simulation] (principal); R07.89 Other chest pain; F14.10 Cocaine abuse, uncomplicated; I10 Essential (primary) hypertension; J45.909 Unspecified asthma, uncomplicated
CPT/HCPCS: 99282

== ENCOUNTER 2019-06-04 23:55 | Inpatient (IN) | payer MEDICAID ==
[~2019-06-04] VITALS: Ht 165.1 cm; Wt 54.0 kg
[2019-06-05] MEDS ORDERED: IBUPROFEN 600MG TABLET PO STA (04:39)
[2019-06-05 05:39] LABS: CHLORIDE 110 mEq/L (98-107)
[2019-06-05 05:41] LABS: BASOPHILS % 0.7 % (0.0-2.0); EOSINOPHILS % 1.8 % (0.0-5.0); HEMATOCRIT. 37.4 % (36.0-48.0); HEMOGLOBIN. 12.4 g/dL (12.0-16.0); LYMPHOCYTES % 21.3 % (20.0-50.0); MEAN CORPUSCULAR HEMOGLOBIN 31.4 pg (28.0-32.0); MEAN CORPUSCULAR VOLUME 94.5 fL (81.0-99.0); MEAN PLATELET VOLUME 8.2 fl (7.4-10.4); MONOCYTES % 10.2 % (2.0-8.0); PLATELET 224 x1000/uL (130-400); RED BLOOD CELL COUNT 3.95 mill/uL (4.2-5.4); RED CELL DISTRIBUTION WIDTH 14.1 % (11.6-14.6)
[2019-06-05] MEDS ORDERED: ASPIRIN 81MG TABLET PO ONE (06:00)
[2019-06-05] MEDS ORDERED: ONDANSETRON HCL 4MG/2ML INJ IV PRN (10:30)
[2019-06-05] MEDS ORDERED: CLONIDINE 0.1MG TABLET PO PRN (10:30)
[2019-06-05] MEDS ORDERED: NITROGLYCERIN 0.4MG TABLET SL SL PRN (10:30)
[2019-06-05 14:55] LABS: CLARITY URINE CLEAR (CLEAR); COLOR URINE YELLOW (YELLOW); KETONES URINE NEGATIVE (NEGATIVE); LEUKOCYTE ESTERASE URINE NEGATIVE (NEGATIVE); NITRITE URINE NEGATIVE (NEGATIVE); OCCULT BLOOD URINE NEGATIVE (NEGATIVE); PH URINE 5.5 (4.5-8.0); PROTEIN URINE NEGATIVE (NEGATIVE); SPECIFIC GRAVITY URINE 1.025 (1.005-1.030); UROBILINOGEN URINE 0.2 E.U./dL (0.2-1.0)
[2019-06-05 15:47] LABS: *BARBITURATES SCREEN URINE NEGATIVE (NEGATIVE); *BENZODIAZEPINES SCREEN URINE NEGATIVE (NEGATIVE); CANNABINOID URINE SCREEN NEGATIVE (NEGATIVE); METHADONE URINE SCREEN NEGATIVE (NEGATIVE); OPIATES URINE SCREEN NEGATIVE (NEGATIVE)
[2019-06-05 15:49] LABS: *AMPHETAMINES SCREEN URINE NEGATIVE (NEGATIVE); PHENCYCLIDINE URINE SCREEN NEGATIVE (NEGATIVE)
[2019-06-05 15:50] LABS: *COCAINE SCREEN URINE PRESUMTIVE POSITIVE (NEGATIVE)
[2019-06-05 16:54] VITALS: BP 140/97
[2019-06-05 18:00] VITALS: BP 140/97
[2019-06-05] MEDS: LOSARTAN POTASSIUM 25 MG TABLET PO SCH (18:04)
[2019-06-05 18:34] VITALS: BP 140/97
[2019-06-05 20:00] VITALS: BP 132/87
[2019-06-05] MEDS: ATORVASTATIN CALCIUM 40MG TABLET PO SCH (20:47)
[2019-06-05] MEDS: HEPARIN 5000 UNITS/ML VIAL SUBCUT SCH (20:48)
[2019-06-06] VITALS: BP 154/109
[2019-06-06 04:00] VITALS: BP 123/84
[2019-06-06 08:00] VITALS: BP 128/67
[2019-06-06] MEDS: HEPARIN 5000 UNITS/ML VIAL SUBCUT SCH ×2 (09:23→21:00)
[2019-06-06] MEDS: ACETAMINOPHEN 325MG TABLET PO PRN ×2 (09:24→18:39)
[2019-06-06] MEDS: LOSARTAN POTASSIUM 25 MG TABLET PO SCH (09:24)
[2019-06-06 16:00] VITALS: BP 111/72
[2019-06-06 16:59] LABS: EOSINOPHILS % 1.6 % (0.0-5.0); HEMOGLOBIN. 12.6 g/dL (12.0-16.0); MEAN PLATELET VOLUME 8.8 fl (7.4-10.4); MONOCYTES % 7.3 % (2.0-8.0); NEUTROPHILS % 65.1 % (40.0-76.0); PLATELET 236 x1000/uL (130-400); RED BLOOD CELL COUNT 3.94 mill/uL (4.2-5.4); RED CELL DISTRIBUTION WIDTH 13.6 % (11.6-14.6)
[2019-06-06 17:13] LABS: CHLORIDE 108 mEq/L (98-107)
[2019-06-06 17:26] LABS: HDL CHOLESTEROL 34 mg/dL (40-59)
[2019-06-06 17:29] LABS: LDL CHOLESTEROL 74 mg/dL (5-100)
[2019-06-06 20:00] VITALS: BP 124/85
[2019-06-06] MEDS: ATORVASTATIN CALCIUM 40MG TABLET PO SCH (21:18)
[2019-06-07] VITALS: BP 143/90
[2019-06-07 04:00] VITALS: BP 115/75
[2019-06-07 08:00] VITALS: BP 151/85
[2019-06-07] MEDS: LOSARTAN POTASSIUM 25 MG TABLET PO SCH (08:58)
[2019-06-07] MEDS: ACETAMINOPHEN 325MG TABLET PO PRN (08:58)
[2019-06-07 10:50] VITALS: BP 151/85
== END 2019-06-07 11:30 | disposition home or self-care (01) | DRG 816 ==
LOC: ER 06-05 00:15 → 5WST 06-05 07:08 → EDBEDREQ 06-05 07:10 → EDBEDREQTM 06-05 07:10 → EDBEDREQ 06-05 07:26 → ENRESERV 06-05 16:17
PROVIDERS: ADMIT Family Medicine Adult Medicine; ATTEND Family Medicine Adult Medicine
DX: T40.5X1A Poisoning by cocaine, accidental (unintentional), initial encounter (principal); I21.4 Non-ST elevation (NSTEMI) myocardial infarction; E44.0 Moderate protein-calorie malnutrition; I16.1 Hypertensive emergency; F14.188 Cocaine abuse with other cocaine-induced disorder; I12.9 Hypertensive chronic kidney disease with stage 1 through stage 4 chronic kidney disease, or unspecified chronic kidney disease; N18.9 Chronic kidney disease, unspecified; J45.909 Unspecified asthma, uncomplicated; Z59.0 Homelessness; Z79.82 Long term (current) use of aspirin; Z79.899 Other long term (current) drug therapy; Y92.89 Other specified places as the place of occurrence of the external cause; Z68.1 Body mass index [BMI] 19.9 or less, adult
CPT/HCPCS: 36415; 71045; 80053; 80061; 80305; 81003; 83036; 83735; 84484; 85025; 93005; 99285; J1644

== ENCOUNTER 2019-06-16 02:15 | Emergency (ER) | payer MEDICAID ==
[~2019-06-16] VITALS: Ht 167.6 cm; Wt 59.0 kg
[~2019-06-16 02:15] MED LIST changes: -TOPUD PO
[2019-06-16] MEDS ORDERED: IBUPROFEN 600MG TABLET PO ONE (06:45)
[2019-06-16] MEDS ORDERED: ACETAMINOPHEN 325MG TABLET PO ONE (08:00)
[2019-06-16 08:05] LABS: BASOPHILS % 1.1 % (0.0-2.0); EOSINOPHILS % 3.6 % (0.0-5.0); HEMOGLOBIN. 13.9 g/dL (12.0-16.0); MEAN CORPUSCULAR HEMOGLOBIN 31.4 pg (28.0-32.0); MEAN CORPUSCULAR VOLUME 94.5 fL (81.0-99.0); MONOCYTES % 7.8 % (2.0-8.0); NEUTROPHILS % 59.5 % (40.0-76.0); PLATELET 310 x1000/uL (130-400); RED BLOOD CELL COUNT 4.45 mill/uL (4.2-5.4); RED CELL DISTRIBUTION WIDTH 14.2 % (11.6-14.6)
[2019-06-16 08:10] LABS: CHLORIDE 113 mEq/L (98-107)
[2019-06-16] MEDS ORDERED: SODIUM CHLORIDE 0.9% 1,000 ML IV ONE (08:24)
[2019-06-16 11:22] VITALS: BP 127/61
[2019-06-16] MEDS ORDERED: KETOROLAC 30MG/ML VIAL IM ONE (11:45)
== END 2019-06-16 12:07 | disposition home or self-care (01) ==
LOC: ER 02:18
DX: R07.89 Other chest pain (principal); R05 Cough; R00.1 Bradycardia, unspecified; F14.10 Cocaine abuse, uncomplicated
CPT/HCPCS: 36415; 71045; 80053; 84484; 85025; 93005; 99285; J7030; J1885

== ENCOUNTER 2019-06-19 00:46 | Emergency (ER) | payer MEDICAID ==
[~2019-06-19] VITALS: Ht 152.4 cm; Wt 45.0 kg
[2019-06-19] MEDS ORDERED: NITROGLYCERIN 0.4MG TABLET SL SL PRN (01:15)
[2019-06-19] MEDS ORDERED: ASPIRIN 81MG TABLET PO ONE (01:15)
[2019-06-19 02:00] LABS: BASOPHILS % 0.9 % (0.0-2.0); EOSINOPHILS % 1.5 % (0.0-5.0); HEMATOCRIT. 38.8 % (36.0-48.0); HEMOGLOBIN. 13.1 g/dL (12.0-16.0); MEAN CORPUSCULAR HEMOGLOBIN 31.8 pg (28.0-32.0); MEAN CORPUSCULAR VOLUME 94.2 fL (81.0-99.0); MEAN PLATELET VOLUME 8.3 fl (7.4-10.4); MONOCYTES % 5.4 % (2.0-8.0); NEUTROPHILS % 69.2 % (40.0-76.0); PLATELET 314 x1000/uL (130-400); RED BLOOD CELL COUNT 4.11 mill/uL (4.2-5.4); RED CELL DISTRIBUTION WIDTH 14.2 % (11.6-14.6)
[2019-06-19 02:04] LABS: CHLORIDE 113 mEq/L (98-107)
[2019-06-19 02:07] LABS: ETHANOL BLOOD < 10 mg/dL
[2019-06-19] MEDS ORDERED: ACETAMINOPHEN 325MG TABLET PO ONE (02:30)
[2019-06-19] MEDS ORDERED: AMLODIPINE 2.5MG TABLET PO ONE (02:30)
[2019-06-19 06:00] VITALS: BP 134/90
== END 2019-06-19 07:53 | disposition home or self-care (01) ==
LOC: ER 00:46
DX: R07.89 Other chest pain (principal); J45.909 Unspecified asthma, uncomplicated; I10 Essential (primary) hypertension; F14.10 Cocaine abuse, uncomplicated; Z79.899 Other long term (current) drug therapy
CPT/HCPCS: 36415; 71045; 80053; 80320; 84484; 85025; 93005; 99285; Z7610; G0480

== ENCOUNTER 2019-06-22 01:16 | Emergency (ER) | payer MEDICAID ==
[~2019-06-22] VITALS: Ht 165.1 cm; Wt 53.0 kg
[2019-06-22] MEDS ORDERED: VISCOUS LIDOCAINE 2% 15 ML UDC PO ONE (02:30)
[2019-06-22] MEDS ORDERED: KETOROLAC 30MG/ML VIAL IM STA (02:30)
[2019-06-22] MEDS ORDERED: MAGNESIUM/ALUMINUM HYDROXIDE/SIMETHICONE 30ML UDC PO ONE (02:30)
[2019-06-22 03:03] LABS: BASOPHILS % 1.5 % (0.0-2.0); EOSINOPHILS % 1.5 % (0.0-5.0); HEMATOCRIT. 39.6 % (36.0-48.0); HEMOGLOBIN. 13.3 g/dL (12.0-16.0); MEAN CORPUSCULAR HEMOGLOBIN 31.6 pg (28.0-32.0); MEAN CORPUSCULAR VOLUME 94.2 fL (81.0-99.0); MEAN PLATELET VOLUME 8.6 fl (7.4-10.4); PLATELET 260 x1000/uL (130-400); RED CELL DISTRIBUTION WIDTH 14.3 % (11.6-14.6)
[2019-06-22 03:09] LABS: CHLORIDE 112 mEq/L (98-107)
[2019-06-22 10:30] VITALS: BP 143/88
== END 2019-06-22 10:30 | disposition home or self-care (01) ==
LOC: ER 01:16
DX: K21.9 Gastro-esophageal reflux disease without esophagitis (principal); K29.70 Gastritis, unspecified, without bleeding; F17.290 Nicotine dependence, other tobacco product, uncomplicated; I10 Essential (primary) hypertension; Z79.899 Other long term (current) drug therapy; Z79.82 Long term (current) use of aspirin
CPT/HCPCS: 36415; 80053; 84484; 85025; 93005; 96372; 99285; 99406; J1885

== ENCOUNTER 2019-09-20 03:23 | Emergency (ER) | payer MEDICAID ==
[~2019-09-20] VITALS: Ht 165.1 cm; Wt 69.0 kg
[2019-09-20] MEDS ORDERED: KETOROLAC 60MG/2ML VIAL IM ONE (04:00)
[2019-09-20 06:11] LABS: BASOPHILS % 1.2 % (0.0-2.0); EOSINOPHILS % 2.9 % (0.0-5.0); HEMATOCRIT. 39.5 % (36.0-48.0); HEMOGLOBIN. 13.5 g/dL (12.0-16.0); LYMPHOCYTES % 32.2 % (20.0-50.0); MEAN CORPUSCULAR HEMOGLOBIN 32.8 pg (28.0-32.0); MEAN CORPUSCULAR VOLUME 96.1 fL (81.0-99.0); MEAN PLATELET VOLUME 8.1 fl (7.4-10.4); MONOCYTES % 9.1 % (2.0-8.0); NEUTROPHILS % 54.6 % (40.0-76.0); PLATELET 206 x1000/uL (130-400); RED BLOOD CELL COUNT 4.11 mill/uL (4.2-5.4); RED CELL DISTRIBUTION WIDTH 13.8 % (11.6-14.6)
[2019-09-20 06:14] LABS: CHLORIDE 109 mEq/L (98-107)
[2019-09-20] MEDS ORDERED: METOCLOPRAMIDE HCL 10MG/2ML VIAL IV ONE (06:30)
[2019-09-20] MEDS ORDERED: DIPHENHYDRAMINE 50MG/ML VIAL IV ONE (06:30)
[2019-09-20] MEDS ORDERED: CLONIDINE 0.2MG TABLET PO ONE (06:30)
[2019-09-20 06:34] LABS: CLARITY URINE CLEAR (CLEAR); COLOR URINE YELLOW (YELLOW); KETONES URINE NEGATIVE (NEGATIVE); LEUKOCYTE ESTERASE URINE TRACE (NEGATIVE); NITRITE URINE NEGATIVE (NEGATIVE); OCCULT BLOOD URINE NEGATIVE (NEGATIVE); PH URINE 6.5 (4.5-8.0); PROTEIN URINE NEGATIVE (NEGATIVE)
[2019-09-20 07:26] LABS: *AMPHETAMINES SCREEN URINE NEGATIVE (NEGATIVE)
[2019-09-20 07:27] LABS: *BARBITURATES SCREEN URINE NEGATIVE (NEGATIVE); *BENZODIAZEPINES SCREEN URINE NEGATIVE (NEGATIVE); *COCAINE SCREEN URINE PRESUMTIVE POSITIVE (NEGATIVE); CANNABINOID URINE SCREEN NEGATIVE (NEGATIVE); METHADONE URINE SCREEN NEGATIVE (NEGATIVE); OPIATES URINE SCREEN NEGATIVE (NEGATIVE); PHENCYCLIDINE URINE SCREEN NEGATIVE (NEGATIVE)
[2019-09-20] MEDS ORDERED: CEFTRIAXONE 1 G PREMIX 50 ML IV ONE (07:45)
[2019-09-20 10:29] VITALS: BP 112/76
== END 2019-09-20 11:06 | disposition left against medical advice (07) ==
LOC: ER 03:23
DX: I10 Essential (primary) hypertension (principal); N39.0 Urinary tract infection, site not specified; Z79.899 Other long term (current) drug therapy
CPT/HCPCS: 36415; 70450; 71045; 80053; 80305; 81003; 84484; 85025; 93005; 96372; 96374; 96375; 99285; J0696; J1200; J1885; J2765

== ENCOUNTER 2023-04-03 20:00 | Emergency (ER) | payer MEDICAID, OTHER ==
[~2023-04-03] VITALS: Ht 167.6 cm; Wt 47.0 kg
[~2023-04-03 20:00] MED LIST changes: +HYDR100T26 MT; +MIRT-144 MT; -MIRT15TA MT
[2023-04-03 20:06] VITALS: O2SAT 95
[2023-04-04] MEDS ORDERED: TRANEXAMIC ACID 1,000 MG/10 ML TP ONE (01:45)
[2023-04-04 03:02] LABS: BASOPHILS % 1.2 % (0.0-2.0); EOSINOPHILS % 2.6 % (0.0-5.0); HEMATOCRIT. 40.8 % (36.0-48.0); HEMOGLOBIN. 13.2 g/dL (12.0-16.0); LYMPHOCYTES % 24.7 % (20.0-50.0); MEAN CORPUSCULAR HGB CONC 32.3 g/dL (31.0-37.0); MEAN PLATELET VOLUME 8.8 fl (7.4-10.4); NEUTROPHILS % 62.5 % (40.0-76.0); PLATELET 239 x1000/uL (130-400); RED BLOOD CELL COUNT 4.25 mill/uL (4.2-5.4); RED CELL DISTRIBUTION WIDTH 14.4 % (11.6-14.6); WHITE BLOOD COUNT 6.3 x1000/uL (4.5-11.0)
[2023-04-04 03:34] LABS: PROTHROMBIN TIME 11.2 sec (9.6-11.0)
[2023-04-04 03:57] LABS: ALANINE AMINOTRANSFERASE 17 IU/L (10-49); ALBUMIN 3.8 g/dL (3.2-4.8); ASPARTATE AMINOTRANSFERASE 25 IU/L (<34); BILIRUBIN TOTAL 0.4 mg/dL (0.1-1.0); CALCIUM 8.8 mg/dL (8.7-10.4); CARBON DIOXIDE 31 mEq/L (21-32); CHLORIDE 110 mEq/L (98-107); CREATININE 1.2 mg/dL (0.6-1.0); GLUCOSE 83 mg/dL (70-105); POTASSIUM 3.7 mEq/L (3.5-5.1); PROTEIN TOTAL 6.6 g/dL (6.0-8.3); SODIUM 142 mEq/L (136-145); UREA NITROGEN BLOOD 32 mg/dL (9-23)
[2023-04-04 06:42] VITALS: BP 158/74; PULSE 70; RESP 18; TEMP 98.4
[2023-04-04] MEDS ORDERED: OXYMETAZOLINE HCL NASAL SPRAY 15ML BOTHNSTRLS SCH (09:00)
== END 2023-04-04 06:43 | disposition home or self-care (01) ==
LOC: ER 20:00
DX: R04.0 Epistaxis (principal); I11.0 Hypertensive heart disease with heart failure; I50.9 Heart failure, unspecified; J44.9 Chronic obstructive pulmonary disease, unspecified
CPT/HCPCS: 99283; 80053; 85025; 85610; 36415; Z7610 ×3

== ENCOUNTER 2023-04-05 20:49 | Emergency (ER) | payer MEDICAID, OTHER ==
[~2023-04-05] VITALS: Ht 154.9 cm; Wt 58.2 kg
[2023-04-05 21:49] VITALS: O2SAT 18
[2023-04-05 23:04] LABS: BASOPHILS % 1.4 % (0.0-2.0); EOSINOPHILS % 4.6 % (0.0-5.0); HEMATOCRIT. 35.2 % (36.0-48.0); HEMOGLOBIN. 11.1 g/dL (12.0-16.0); MEAN CORPUSCULAR HEMOGLOBIN 31.4 pg (28.0-32.0); MEAN CORPUSCULAR HGB CONC 31.6 g/dL (31.0-37.0); MEAN CORPUSCULAR VOLUME 99.5 fL (81.0-99.0); MEAN PLATELET VOLUME 8.7 fl (7.4-10.4); MONOCYTES % 9.8 % (2.0-8.0); NEUTROPHILS % 52.2 % (40.0-76.0); PLATELET 209 x1000/uL (130-400); RED BLOOD CELL COUNT 3.54 mill/uL (4.2-5.4); WHITE BLOOD COUNT 5.2 x1000/uL (4.5-11.0)
[2023-04-05 23:12] LABS: PROTHROMBIN TIME 11.2 sec (9.6-11.0)
[2023-04-05 23:20] LABS: ALANINE AMINOTRANSFERASE 18 IU/L (10-49); ALBUMIN 3.4 g/dL (3.2-4.8); ASPARTATE AMINOTRANSFERASE 25 IU/L (<34); BILIRUBIN TOTAL 0.3 mg/dL (0.1-1.0); CALCIUM 8.7 mg/dL (8.7-10.4); CARBON DIOXIDE 32 mEq/L (21-32); CHLORIDE 109 mEq/L (98-107); CREATININE 1.5 mg/dL (0.6-1.0); GLUCOSE 94 mg/dL (70-105); POTASSIUM 3.9 mEq/L (3.5-5.1); SODIUM 146 mEq/L (136-145); UREA NITROGEN BLOOD 37 mg/dL (9-23)
[2023-04-05 23:23] LABS: TROPONIN I HIGH SENSITIVITY 108 ng/L (3.0-34)
[2023-04-05] MEDS ORDERED: SODIUM CHLORIDE 0.9% 500 ML IV ONE (23:45)
[2023-04-05 23:47] LABS: HCG SCREEN NEGATIVE
[2023-04-06] MEDS ORDERED: ASPIRIN 81MG TABLET PO ONE (00:15)
[2023-04-06] MEDS ORDERED: ASPIRIN 81MG TABLET PO NR (01:30)
[2023-04-06 01:41] LABS: CLARITY URINE CLEAR (CLEAR); COLOR URINE YELLOW (YELLOW); GLUCOSE URINE NEGATIVE (NEGATIVE); KETONES URINE NEGATIVE (NEGATIVE); LEUKOCYTE ESTERASE URINE NEGATIVE (NEGATIVE); NITRITE URINE NEGATIVE (NEGATIVE); OCCULT BLOOD URINE NEGATIVE (NEGATIVE); PROTEIN URINE TRACE (NEGATIVE); SPECIFIC GRAVITY URINE 1.018 (1.005-1.030); UROBILINOGEN URINE 0.2 E.U./dL (0.2-1.0)
[2023-04-06 01:59] LABS: BACTERIA URINE NONE SEEN; RBC URINE NONE SEEN /hpf (0-2); SQUAMOUS EPITHELIAL CELL URINE NONE SEEN /lpf (RARE/1+); WBC URINE NONE SEEN /hpf (0-2)
[2023-04-06 03:47] VITALS: BP 151/102; PULSE 78; RESP 18; TEMP 98.2
== END 2023-04-06 03:51 | disposition short-term general hospital (02) ==
LOC: ER 20:49
DX: I21.4 Non-ST elevation (NSTEMI) myocardial infarction (principal); N17.9 Acute kidney failure, unspecified; E87.0 Hyperosmolality and hypernatremia; F19.10 Other psychoactive substance abuse, uncomplicated; J44.9 Chronic obstructive pulmonary disease, unspecified; I10 Essential (primary) hypertension
CPT/HCPCS: 80053; 84703; 83880; 85025; 85610; 84484; 36415; 71045; 93005; 99285; 81003; 96360; J7040; Z7610 ×2

== ENCOUNTER 2023-09-05 09:28 | Inpatient (IN) | payer OTHER ==
[~2023-09-05] VITALS: Ht 165.1 cm; Wt 52.2 kg
[2023-09-05] VITALS (7 sets, daily range): BP systolic 147–160; BP diastolic 100–117; PULSE 78–87; RESP 16–55; TEMP 97–98.6
[2023-09-05 10:48] LABS: CHLORIDE 112 mEq/L (98-107); POTASSIUM 4.2 mEq/L (3.5-5.1); SODIUM 145 mEq/L (136-145)
[2023-09-05 10:49] LABS: CALCIUM 8.4 mg/dL (8.7-10.4); CARBON DIOXIDE 26 mEq/L (21-32)
[2023-09-05 10:53] LABS: BASOPHILS % 1.3 % (0.0-2.0); HEMATOCRIT. 38.2 % (36.0-48.0); LYMPHOCYTES % 19.7 % (20.0-50.0); MEAN CORPUSCULAR HEMOGLOBIN 26.8 pg (28.0-32.0); MEAN CORPUSCULAR HGB CONC 31.5 g/dL (31.0-37.0); MEAN CORPUSCULAR VOLUME 85.1 fL (81.0-99.0); MEAN PLATELET VOLUME 8.6 fl (7.4-10.4); MONOCYTES % 9.6 % (2.0-8.0); NEUTROPHILS % 66.4 % (40.0-76.0); PLATELET 238 x1000/uL (130-400); RED BLOOD CELL COUNT 4.49 mill/uL (4.2-5.4); RED CELL DISTRIBUTION WIDTH 18.1 % (11.6-14.6); WHITE BLOOD COUNT 6.3 x1000/uL (4.5-11.0)
[2023-09-05 10:54] LABS: CREATININE 1.7 mg/dL (0.6-1.0); GLUCOSE 82 mg/dL (70-105); UREA NITROGEN BLOOD 24 mg/dL (9-23)
[2023-09-05 10:55] LABS: PROTHROMBIN TIME 11.4 sec (9.6-11.0)
[2023-09-05 11:02] LABS: TROPONIN I HIGH SENSITIVITY 136 ng/L (3.0-34)
[2023-09-05] MEDS: ALBUTEROL (0.083%) 2.5MG/3ML NEB HHN NR (11:07)
[2023-09-05] MEDS: IPRATROPIUM BROMIDE (0.02%) 0.5MG/2.5ML NEB HHN NR (11:07)
[2023-09-05] MEDS: AMLODIPINE 5MG TABLET PO NR (11:16)
[2023-09-05 13:30] LABS: TROPONIN I HIGH SENSITIVITY 126 ng/L (3.0-34)
[2023-09-05] MEDS ORDERED: GUAIFENESIN 200MG/10ML SUGAR FREE UDC PO PRN (15:00)
[2023-09-05] MEDS ORDERED: MAGNESIUM/ALUMINUM HYDROXIDE/SIMETHICONE 30ML UDC PO PRN (15:00)
[2023-09-05] MEDS ORDERED: IPRATROPIUM/ALBUTEROL 0.5-3(2.5)MG/3ML NEB HHN PRN (15:00)
[2023-09-05] MEDS ORDERED: NA PHOS,M-B/NA PHOS,DI-BA ENEMA 118ML PR PRN (15:00)
[2023-09-05] MEDS ORDERED: ONDANSETRON HCL 4MG/2ML INJ IV PRN (15:00)
[2023-09-05] MEDS: ENOXAPARIN 40MG/0.4ML SYR SUBCUT SCH (15:00)
[2023-09-05] MEDS ORDERED: DOCUSATE SODIUM 100MG CAPSULE PO PRN (15:00)
[2023-09-05 17:27] LABS: BG BASE EXCESS 0.9 mmol/L (-2.0-2.0); BG CARBOXYHEMOGLOBIN 0.9 % (0.5-1.5); BG FRACTION INSPIRED OXYGEN 28; BG METHEMOGLOBIN 0.1 % (0.0-1.5); BG PCO2 43.4 mmHg (35.0-45.0); BG PH 7.395 (7.350-7.450); BG PO2 86.1 mmHg (75.0-100.0); BG SAMPLE SITE LEFT RADIAL; BG TOTAL HEMOGLOBIN 12.7 g/dL (12.0-18.0); BG VENT MODE NASAL CANNULA
[2023-09-05] MEDS: CLONIDINE 0.1MG TABLET PO PRN (21:22)
[2023-09-06] VITALS (8 sets, daily range): BP systolic 123–139; BP diastolic 95–106; PULSE 66–83; RESP 12–25; TEMP 97.8–98.1
[2023-09-06 01:30] LABS: TROPONIN I HIGH SENSITIVITY 100 ng/L (3.0-34)
[2023-09-06 07:47] LABS: CALCIUM 8.2 mg/dL (8.7-10.4); POTASSIUM 4.1 mEq/L (3.5-5.1)
[2023-09-06 07:51] LABS: ALBUMIN 3.3 g/dL (3.2-4.8)
[2023-09-06 07:53] LABS: CREATININE 1.6 mg/dL (0.6-1.0); THYROID STIMULATING HORMONE 1.38 uIU/mL (0.55-4.78)
[2023-09-06 07:54] LABS: T4 FREE 0.92 ng/dL (0.89-1.76)
[2023-09-06] MEDS: FUROSEMIDE 40MG/4ML VIAL IVP SCH (08:19)
[2023-09-06] MEDS: ASPIRIN 81MG EC TABLET PO SCH (08:19)
[2023-09-06] MEDS: AMLODIPINE 5MG TABLET PO SCH (08:24)
[2023-09-06 08:26] LABS: HEMATOCRIT 36.5 % (36.0-48.0); HEMOGLOBIN 11.5 g/dL (12.0-16.0); MEAN CORPUSCULAR HEMOGLOBIN 26.7 pg (28.0-32.0); MEAN CORPUSCULAR HGB CONC 31.4 g/dL (31.0-37.0); MEAN CORPUSCULAR VOLUME 85.1 fL (81.0-99.0); PLATELET 224 x1000/uL (130-400); RED BLOOD CELL COUNT 4.29 mill/uL (4.2-5.4); WHITE BLOOD COUNT 4.9 x1000/uL (4.5-11.0)
[2023-09-06 09:28] LABS: ALANINE AMINOTRANSFERASE 21 IU/L (10-49)
[2023-09-06 09:29] LABS: ALBUMIN 3.5 g/dL (3.2-4.8); ASPARTATE AMINOTRANSFERASE 33 IU/L (<34); BILIRUBIN DIRECT 0.1 mg/dL (<=3.0); BILIRUBIN TOTAL 0.3 mg/dL (0.1-1.0); CREATINE KINASE 219 IU/L (34-145); PHOSPHORUS 4.1 mg/dL (2.5-4.9); PROTEIN TOTAL 5.3 g/dL (6.0-8.3)
[2023-09-06 14:23] LABS: CLARITY URINE CLEAR (CLEAR); COLOR URINE YELLOW (YELLOW); GLUCOSE URINE NEGATIVE (NEGATIVE); KETONES URINE NEGATIVE (NEGATIVE); LEUKOCYTE ESTERASE URINE 1+ (NEGATIVE); NITRITE URINE NEGATIVE (NEGATIVE); OCCULT BLOOD URINE NEGATIVE (NEGATIVE); PH URINE 5.5 (4.5-8.0); PROTEIN URINE 1+ (NEGATIVE); SPECIFIC GRAVITY URINE 1.022 (1.005-1.030)
[2023-09-06 14:24] LABS: SODIUM URINE RANDOM 48 mEq/L
[2023-09-06 14:30] LABS: *AMPHETAMINES SCREEN URINE NEGATIVE (NEGATIVE); *BARBITURATES SCREEN URINE NEGATIVE (NEGATIVE); *BENZODIAZEPINES SCREEN URINE NEGATIVE (NEGATIVE); *COCAINE SCREEN URINE PRESUMPTIVE POSITIVE (NEGATIVE); METHADONE URINE SCREEN NEGATIVE (NEGATIVE)
[2023-09-06 14:31] LABS: CANNABINOID URINE SCREEN NEGATIVE (NEGATIVE); ECSTASY MDMA SCREEN URINE NEGATIVE (NEGATIVE); OPIATES URINE SCREEN NEGATIVE (NEGATIVE); PHENCYCLIDINE URINE SCREEN NEGATIVE (NEGATIVE)
[2023-09-06 14:37] LABS: SQUAMOUS EPITHELIAL CELL URINE FEW /lpf (RARE/1+)
[2023-09-06 14:38] LABS: BACTERIA URINE TRACE; WBC URINE 0-2 /hpf (0-2)
[2023-09-06 14:39] LABS: RBC URINE NONE SEEN /hpf (0-2)
[2023-09-06 14:40] LABS: UREA NITROGEN URINE RANDOM 1122 mg/dL
[2023-09-06 18:39] LABS: OSMOLALITY URINE 720 mOsm/kg (500-850)
[2023-09-06] MEDS: MIRTAZAPINE 15MG TABLET PO SCH (21:00)
[2023-09-07] VITALS: BP 144/105; PULSE 70; RESP 12; TEMP 97.7
[2023-09-07 04:00] VITALS: BP 142/97; PULSE 69; RESP 20; TEMP 98
[2023-09-07 08:00] VITALS: BP 172/121; PULSE 75; RESP 15; TEMP 97.3
[2023-09-07] MEDS: SPIRONOLACTONE 12.5MG TABLET PO SCH (08:15)
[2023-09-07] MEDS: LOSARTAN 25 MG TABLET PO SCH (08:16)
[2023-09-07] MEDS ORDERED: ACETAMINOPHEN 325MG TABLET ONE (08:19)
[2023-09-07] MEDS: FUROSEMIDE 100MG/10ML VIAL IVP NR (10:21)
[2023-09-07] MEDS: ACETAMINOPHEN 325MG TABLET PO NR (10:35)
[2023-09-07 11:07] LABS: HEMATOCRIT 35.9 % (36.0-48.0); HEMOGLOBIN 11.5 g/dL (12.0-16.0); MEAN CORPUSCULAR HEMOGLOBIN 27.1 pg (28.0-32.0); MEAN CORPUSCULAR HGB CONC 31.9 g/dL (31.0-37.0); MEAN CORPUSCULAR VOLUME 84.9 fL (81.0-99.0); PLATELET 232 x1000/uL (130-400); RED BLOOD CELL COUNT 4.23 mill/uL (4.2-5.4); RED CELL DISTRIBUTION WIDTH 17.9 % (11.6-14.6)
[2023-09-07 11:16] LABS: POTASSIUM 4.1 mEq/L (3.5-5.1)
[2023-09-07 11:18] LABS: CALCIUM 8.4 mg/dL (8.7-10.4)
[2023-09-07 11:22] LABS: CREATININE 1.5 mg/dL (0.6-1.0)
[2023-09-07 12:00] VITALS: BP 143/108; PULSE 73; RESP 18; TEMP 97.4
[2023-09-07 16:00] VITALS: BP 154/122; PULSE 83; RESP 24; TEMP 97.2
[2023-09-07 20:00] VITALS: BP 178/108; PULSE 86; RESP 27; TEMP 98.2
[2023-09-07] MEDS: FUROSEMIDE 100MG/10ML VIAL IVP SCH (21:00)
[2023-09-08] VITALS: BP 145/127; PULSE 83; RESP 30
[2023-09-08 04:00] VITALS: BP 147/108; PULSE 66; RESP 12
[2023-09-08 08:00] VITALS: BP 159/118; PULSE 77; RESP 28; TEMP 97.3
[2023-09-08 12:00] VITALS: BP 122/100; PULSE 75; RESP 22; TEMP 97.2
[2023-09-08] MEDS ORDERED: ASPI-1497 PO (13:46)
[2023-09-08] MEDS ORDERED: LOSA100T33 PO (13:46)
[2023-09-08] MEDS ORDERED: SPIR25TA PO (13:46)
[2023-09-08] MEDS ORDERED: FURO-151 PO (13:48)
[2023-09-08 13:59] VITALS: BP 132/90; PULSE 72; TEMP 97.2; O2SAT 100
[2023-09-09] MEDS ORDERED: LOSARTAN 100 MG TABLET PO SCH (09:00)
== END 2023-09-08 16:10 | disposition home or self-care (01) | DRG 816 ==
LOC: ER 09:28 → 5EST 11:38 → EDBEDREQ 11:40 → EDBEDREQSVC 11:40 → EDBEDREQTM 11:40 → EDBEDREQSVC 14:40
PROVIDERS: ADMIT Hospitalist; ATTEND Hospitalist
PROC: 5A09357 Assistance with Respiratory Ventilation, Less than 24 Consecutive Hours, Continuous Positive Airway Pressure (ICD-10-PCS; principal; 2023-09-05)
DX: T40.5X1A Poisoning by cocaine, accidental (unintentional), initial encounter (principal); J96.01 Acute respiratory failure with hypoxia; N17.0 Acute kidney failure with tubular necrosis; I21.A1 Myocardial infarction type 2; I50.43 Acute on chronic combined systolic (congestive) and diastolic (congestive) heart failure; I11.0 Hypertensive heart disease with heart failure; M79.604 Pain in right leg; I16.1 Hypertensive emergency; M79.605 Pain in left leg; F14.90 Cocaine use, unspecified, uncomplicated; F19.10 Other psychoactive substance abuse, uncomplicated; K86.1 Other chronic pancreatitis; F17.210 Nicotine dependence, cigarettes, uncomplicated; J44.89 Other specified chronic obstructive pulmonary disease; J98.4 Other disorders of lung; Z79.82 Long term (current) use of aspirin; Z79.899 Other long term (current) drug therapy; Z83.3 Family history of diabetes mellitus; Z91.148 Patient's other noncompliance with medication regimen for other reason
CPT/HCPCS: 36415; 36600; 71045; 80048; 80061; 80076; 80305; 81003; 82040; 82375; 82550; 82570; 82805; 83605; 83735; 83880; 83935; 84100; 84300; 84439; 84443; 84484; 84540; 85025; 85027; 85379; 93005; 93306; 93970; 94640; 94660; 99285; J1650; J1940

== ENCOUNTER 2023-09-29 11:24 | Inpatient (IN) | payer MEDICAID, OTHER ==
[~2023-09-29] VITALS: Ht 167.6 cm; Wt 60.3 kg
[~2023-09-29 11:24] MED LIST changes: +AMLO10TA4 MT; -AMLO10TA4 PO; -ASPI-1497 MT; +ASPI-1497 PO; +FURO-151 PO; -HYDR100T26 MT; +LOSA100T33 PO; -MIRT-144 MT; -QUET200T PO; +SPIR25TA MT
[2023-09-29] MEDS: ACETAMINOPHEN 325MG TABLET PO NR (12:30)
[2023-09-29] MEDS: FUROSEMIDE 40MG/4ML VIAL IV NR (12:34)
[2023-09-29 12:40] LABS: EOSINOPHILS % 2.6 % (0.0-5.0); HEMATOCRIT. 39.4 % (36.0-48.0); HEMOGLOBIN. 12.5 g/dL (12.0-16.0); LYMPHOCYTES % 13.4 % (20.0-50.0); MEAN CORPUSCULAR HEMOGLOBIN 27.6 pg (28.0-32.0); MEAN CORPUSCULAR HGB CONC 31.7 g/dL (31.0-37.0); MONOCYTES % 7.6 % (2.0-8.0); NEUTROPHILS % 75.4 % (40.0-76.0); PLATELET 179 x1000/uL (130-400); RED BLOOD CELL COUNT 4.53 mill/uL (4.2-5.4); RED CELL DISTRIBUTION WIDTH 18.9 % (11.6-14.6); WHITE BLOOD COUNT 6.2 x1000/uL (4.5-11.0)
[2023-09-29 12:56] LABS: CHLORIDE 114 mEq/L (98-107); POTASSIUM 3.9 mEq/L (3.5-5.1); SODIUM 144 mEq/L (136-145)
[2023-09-29 12:57] LABS: CALCIUM 8.3 mg/dL (8.7-10.4); CARBON DIOXIDE 22 mEq/L (21-32)
[2023-09-29 13:00] LABS: D-DIMER 0.68 mg/L FEU (<0.50); INR 1.1; PROTHROMBIN TIME 11.9 sec (9.6-11.0)
[2023-09-29 13:02] LABS: CREATININE 1.2 mg/dL (0.6-1.0); GLUCOSE 126 mg/dL (70-105); UREA NITROGEN BLOOD 19 mg/dL (9-23)
[2023-09-29 13:46] LABS: TROPONIN I HIGH SENSITIVITY 70 ng/L (3.0-34)
[2023-09-29 15:31] LABS: *AMPHETAMINES SCREEN URINE NEGATIVE (NEGATIVE); *BARBITURATES SCREEN URINE NEGATIVE (NEGATIVE); *COCAINE SCREEN URINE PRESUMPTIVE POSITIVE (NEGATIVE); METHADONE URINE SCREEN NEGATIVE (NEGATIVE); OPIATES URINE SCREEN NEGATIVE (NEGATIVE)
[2023-09-29 15:32] LABS: ECSTASY MDMA SCREEN URINE NEGATIVE (NEGATIVE)
[2023-09-29 15:44] LABS: TROPONIN I HIGH SENSITIVITY 79 ng/L (3.0-34)
[2023-09-29 15:53] LABS: *BENZODIAZEPINES SCREEN URINE NEGATIVE (NEGATIVE); CANNABINOID URINE SCREEN NEGATIVE (NEGATIVE); PHENCYCLIDINE URINE SCREEN NEGATIVE (NEGATIVE)
[2023-09-29] MEDS ORDERED: MAGNESIUM/ALUMINUM HYDROXIDE/SIMETHICONE 30ML UDC PO PRN (17:15)
[2023-09-29] MEDS ORDERED: ONDANSETRON HCL 4MG/2ML INJ IV PRN (17:15)
[2023-09-29] MEDS ORDERED: ACETAMINOPHEN 325MG TABLET PO PRN (17:15)
[2023-09-29] MEDS ORDERED: DOCUSATE SODIUM 100MG CAPSULE PO PRN (17:15)
[2023-09-29] MEDS: ASPIRIN 81MG EC TABLET PO SCH (17:55)
[2023-09-29] MEDS: AMLODIPINE 10MG TABLET PO SCH (17:55)
[2023-09-29 21:03] LABS: TRIGLYCERIDE 106 mg/dL (0-150)
[2023-09-29 21:04] LABS: LDL CHOLESTEROL 102 mg/dL (5-100)
[2023-09-29 21:05] LABS: ALANINE AMINOTRANSFERASE 52 IU/L (10-49); ALBUMIN 3.7 g/dL (3.2-4.8); ASPARTATE AMINOTRANSFERASE 44 IU/L (<34); BILIRUBIN DIRECT 0.2 mg/dL (<=3.0); BILIRUBIN TOTAL 0.6 mg/dL (0.1-1.0); CHOLESTEROL 154 mg/dL (<200); HDL CHOLESTEROL 42 mg/dL (>65); PROTEIN TOTAL 6.2 g/dL (6.0-8.3)
[2023-09-29 21:08] LABS: T4 FREE 1.26 ng/dL (0.89-1.76); THYROID STIMULATING HORMONE 1.37 uIU/mL (0.55-4.78)
[2023-09-29] MEDS: SPIRONOLACTONE 25MG TABLET PO SCH (21:40)
[2023-09-29] MEDS: FAMOTIDINE 20MG TABLET PO SCH (21:40)
[2023-09-30] MEDS: ACETAMINOPHEN 325MG TABLET PO PRN (00:15)
[2023-09-30 00:16] LABS: TROPONIN I HIGH SENSITIVITY 76 ng/L (3.0-34)
[2023-09-30 04:44] VITALS: PULSE 70; RESP 20; O2SAT 95
[2023-09-30] MEDS: IPRATROPIUM/ALBUTEROL 0.5-3(2.5)MG/3ML NEB HHN PRN (04:44)
[2023-09-30] MEDS: CLONIDINE 0.1MG TABLET PO PRN (05:55)
[2023-09-30 06:01] LABS: CHLORIDE 110 mEq/L (98-107); POTASSIUM 3.9 mEq/L (3.5-5.1); SODIUM 141 mEq/L (136-145)
[2023-09-30 06:02] LABS: CARBON DIOXIDE 25 mEq/L (21-32)
[2023-09-30 06:03] LABS: CALCIUM 8.1 mg/dL (8.7-10.4)
[2023-09-30 06:07] LABS: CREATININE 1.1 mg/dL (0.6-1.0); GLUCOSE 78 mg/dL (70-105); UREA NITROGEN BLOOD 19 mg/dL (9-23)
[2023-09-30 06:09] LABS: ALBUMIN 3.3 g/dL (3.2-4.8)
[2023-09-30 06:23] LABS: BASOPHILS % 0.9 % (0.0-2.0); EOSINOPHILS % 3.4 % (0.0-5.0); HEMATOCRIT. 37.1 % (36.0-48.0); HEMOGLOBIN. 11.7 g/dL (12.0-16.0); LYMPHOCYTES % 16.5 % (20.0-50.0); MEAN CORPUSCULAR HEMOGLOBIN 26.9 pg (28.0-32.0); MEAN CORPUSCULAR HGB CONC 31.5 g/dL (31.0-37.0); MEAN CORPUSCULAR VOLUME 85.3 fL (81.0-99.0); MEAN PLATELET VOLUME 9.6 fl (7.4-10.4); MONOCYTES % 6.1 % (2.0-8.0); NEUTROPHILS % 73.1 % (40.0-76.0); PLATELET 164 x1000/uL (130-400); RED BLOOD CELL COUNT 4.35 mill/uL (4.2-5.4); RED CELL DISTRIBUTION WIDTH 18.3 % (11.6-14.6); WHITE BLOOD COUNT 6.3 x1000/uL (4.5-11.0)
[2023-09-30 06:35] LABS: TROPONIN I HIGH SENSITIVITY 63 ng/L (3.0-34)
[2023-09-30 08:13] VITALS: BP 123/90; PULSE 71; PULSE 73; RESP 18; TEMP 97.3; TEMP 97.8
[2023-09-30] MEDS ORDERED: ATOR40TA70 PO (10:08)
[2023-09-30] MEDS ORDERED: CARV3.1242 PO (10:08)
[2023-09-30] MEDS: LOSARTAN 100 MG TABLET PO SCH (10:29)
[2023-09-30] MEDS: FUROSEMIDE 40MG/4ML VIAL IVP SCH (10:30)
[2023-09-30] MEDS ORDERED: MAGNESIUM 2 G PREMIX 50 ML IV NR (11:30)
[2023-09-30 12:00] VITALS: BP 122/84; PULSE 64; RESP 18; TEMP 97.2
[2023-09-30 16:00] VITALS: BP 127/89; PULSE 64; RESP 18; TEMP 97.5
[2023-09-30 17:01] VITALS: BP 118/84; PULSE 64; TEMP 97.8; O2SAT 98
[2023-09-30 20:00] VITALS: BP 115/77; PULSE 76; RESP 20; TEMP 98.2
[2023-09-30 20:15] LABS: HEPATITIS B SURFACE ANTIGEN NEGATIVE
[2023-09-30 20:16] LABS: HEPATITIS C VIR.AB < 0.02 INDEXVAL (0.00-0.80)
[2023-09-30] MEDS: GUAIFENESIN 200MG/10ML SUGAR FREE UDC PO PRN (23:53)
[2023-09-30] MEDS: ATORVASTATIN CALCIUM 40MG TABLET PO SCH (23:54)
[2023-10-01] VITALS: BP 118/81; PULSE 80; RESP 20; TEMP 97.9
[2023-10-01 04:00] VITALS: BP 120/69; PULSE 71; RESP 20; TEMP 97.8
[2023-10-01 08:00] VITALS: BP 134/97; PULSE 51; RESP 19; TEMP 98
== END 2023-10-01 12:15 | disposition home or self-care (01) | DRG 194 ==
LOC: ER 11:24 → 5WST 13:33 → EDBEDREQTM 13:38 → EDBEDREQ 13:38 → 7EST 09-30 08:00
PROVIDERS: ADMIT Internal Medicine; ATTEND Internal Medicine
DX: I13.0 Hypertensive heart and chronic kidney disease with heart failure and stage 1 through stage 4 chronic kidney disease, or unspecified chronic kidney disease (principal); I31.39 Other pericardial effusion (noninflammatory); J44.1 Chronic obstructive pulmonary disease with (acute) exacerbation; R16.0 Hepatomegaly, not elsewhere classified; I50.22 Chronic systolic (congestive) heart failure; F14.129 Cocaine abuse with intoxication, unspecified; N18.9 Chronic kidney disease, unspecified; N20.0 Calculus of kidney; K86.1 Other chronic pancreatitis; R06.03 Acute respiratory distress; F17.210 Nicotine dependence, cigarettes, uncomplicated; Z91.148 Patient's other noncompliance with medication regimen for other reason; Z79.82 Long term (current) use of aspirin; Z79.899 Other long term (current) drug therapy; Y92.89 Other specified places as the place of occurrence of the external cause
CPT/HCPCS: 36415; 71045; 80048; 80061; 80076; 80305; 82040; 83735; 83880; 84439; 84443; 84484; 85025; 85379; 93005; 99285; J1940; J3475

== ENCOUNTER 2024-03-21 13:02 | Inpatient (IN) | payer OTHER ==
[~2024-03-21] VITALS: Ht 167.6 cm; Wt 67.1 kg
[~2024-03-21 13:02] MED LIST changes: +ALBU90AE INH; -AMLO10TA4 MT; +ASPI-1160 PO; -ASPI-1497 PO; +CARV12.545 MT; +FURO-151 MT; -FURO-151 PO; +LIP40 PO; -SPIR25TA MT; +SPIR25TA PO
[2024-03-21 15:44] LABS: BASOPHILS % 1.1 % (0.0-2.0); EOSINOPHILS % 2.3 % (0.0-5.0); HEMATOCRIT. 40.6 % (36.0-48.0); MEAN CORPUSCULAR HGB CONC 31.9 g/dL (31.0-37.0); MEAN CORPUSCULAR VOLUME 90.8 fL (81.0-99.0); MEAN PLATELET VOLUME 9.1 fl (7.4-10.4); MONOCYTES % 11.2 % (2.0-8.0); NEUTROPHILS % 59.4 % (40.0-76.0); PLATELET 202 x1000/uL (130-400); RED BLOOD CELL COUNT 4.47 mill/uL (4.2-5.4); RED CELL DISTRIBUTION WIDTH 16.3 % (11.6-14.6); WHITE BLOOD COUNT 5.2 x1000/uL (4.5-11.0)
[2024-03-21 15:47] LABS: CHLORIDE 107 mEq/L (98-107); POTASSIUM 4.6 mEq/L (3.5-5.1); SODIUM 141 mEq/L (136-145)
[2024-03-21 15:48] LABS: CALCIUM 8.8 mg/dL (8.7-10.4); CARBON DIOXIDE 26 mEq/L (21-32)
[2024-03-21 15:53] LABS: GLUCOSE 126 mg/dL (70-105); UREA NITROGEN BLOOD 53 mg/dL (9-23)
[2024-03-21 15:55] LABS: ALANINE AMINOTRANSFERASE 27 IU/L (10-49); ALBUMIN 3.5 g/dL (3.2-4.8); ASPARTATE AMINOTRANSFERASE 23 IU/L (<34); BILIRUBIN DIRECT 0.2 mg/dL (<=3.0); BILIRUBIN TOTAL 0.6 mg/dL (0.1-1.0); PROTEIN TOTAL 5.5 g/dL (6.0-8.3)
[2024-03-21 16:05] LABS: INR 1.1; PROTHROMBIN TIME 12.4 sec (9.6-11.0)
[2024-03-21 16:06] LABS: CREATININE 2.3 mg/dL (0.6-1.0)
[2024-03-21 16:07] LABS: TROPONIN I HIGH SENSITIVITY 145 ng/L (3.0-34)
[2024-03-21 22:53] LABS: TROPONIN I HIGH SENSITIVITY 129 ng/L (3.0-34)
[2024-03-21] MEDS: ASPIRIN 325MG TABLET PO NR (23:14)
[2024-03-21] MEDS: ASPIRIN 325MG TABLET PO ONE (23:15)
[2024-03-21] MEDS: NITROGLYCERIN OINT 1GM/INCH UDPKT TD ONE (23:15)
[2024-03-21] MEDS: NITROGLYCERIN OINT 1GM/INCH UDPKT TD NR (23:15)
[2024-03-22 06:31] LABS: CLARITY URINE CLEAR (CLEAR); COLOR URINE YELLOW (YELLOW)
[2024-03-22 06:32] LABS: GLUCOSE URINE NEGATIVE (NEGATIVE); KETONES URINE NEGATIVE (NEGATIVE); LEUKOCYTE ESTERASE URINE TRACE (NEGATIVE); NITRITE URINE NEGATIVE (NEGATIVE); OCCULT BLOOD URINE NEGATIVE (NEGATIVE); PROTEIN URINE 1+ (NEGATIVE); UROBILINOGEN URINE 1 E.U./dL (0.2-1.0)
[2024-03-22 06:33] LABS: BACTERIA URINE TRACE; RBC URINE 0-2 /hpf (0-2); SQUAMOUS EPITHELIAL CELL URINE 1+ /lpf (RARE/1+); WBC URINE 0-2 /hpf (0-2)
[2024-03-22] MEDS: NIFEDIPINE XL 60MG TAB PO SCH (07:30)
[2024-03-22] MEDS ORDERED: NITROGLYCERIN 50 MG in DEXT 5% WATER 240 ML IV PRN (09:00)
[2024-03-22] MEDS ORDERED: DOCUSATE SODIUM 100MG CAPSULE PO PRN (09:15)
[2024-03-22] MEDS ORDERED: IPRATROPIUM/ALBUTEROL 0.5-3(2.5)MG/3ML NEB HHN PRN (09:15)
[2024-03-22] MEDS ORDERED: ACETAMINOPHEN 325MG TABLET PO PRN (09:15)
[2024-03-22] MEDS ORDERED: ONDANSETRON HCL 4MG/2ML INJ IV PRN (09:15)
[2024-03-22] MEDS ORDERED: DEXTROSE 50% WATER 50ML SYRINGE IV PRN (09:15)
[2024-03-22] MEDS ORDERED: CLONIDINE 0.1MG TABLET PO PRN (09:15)
[2024-03-22] MEDS: NITROGLYCERIN 50 MG in DEXT 5% WATER 240 ML IV PRN (09:20)
[2024-03-22 09:50] LABS: CHLORIDE 111 mEq/L (98-107); POTASSIUM 4.5 mEq/L (3.5-5.1); SODIUM 142 mEq/L (136-145)
[2024-03-22 09:51] LABS: CALCIUM 8.4 mg/dL (8.7-10.4); CARBON DIOXIDE 23 mEq/L (21-32)
[2024-03-22 09:56] LABS: GLUCOSE 103 mg/dL (70-105); UREA NITROGEN BLOOD 48 mg/dL (9-23)
[2024-03-22] MEDS: FAMOTIDINE 20MG/2ML VIAL IV SCH (09:57)
[2024-03-22] MEDS: FUROSEMIDE 40MG/4ML VIAL IVP SCH (09:57)
[2024-03-22] MEDS: ASPIRIN 81MG TABLET PO SCH (09:57)
[2024-03-22 09:58] LABS: ALANINE AMINOTRANSFERASE 24 IU/L (10-49); ALBUMIN 3.3 g/dL (3.2-4.8); ASPARTATE AMINOTRANSFERASE 21 IU/L (<34); BILIRUBIN DIRECT 0.2 mg/dL (<=3.0); BILIRUBIN TOTAL 0.6 mg/dL (0.1-1.0); EOSINOPHILS % 2.3 % (0.0-5.0); HEMATOCRIT. 40.3 % (36.0-48.0); HEMOGLOBIN. 12.5 g/dL (12.0-16.0); LYMPHOCYTES % 20.5 % (20.0-50.0); MEAN CORPUSCULAR HEMOGLOBIN 28.3 pg (28.0-32.0); MEAN CORPUSCULAR HGB CONC 30.9 g/dL (31.0-37.0); MEAN CORPUSCULAR VOLUME 91.6 fL (81.0-99.0); MEAN PLATELET VOLUME 8.9 fl (7.4-10.4); MONOCYTES % 8.7 % (2.0-8.0); NEUTROPHILS % 67.5 % (40.0-76.0); PHOSPHORUS 3.4 mg/dL (2.5-4.9); PLATELET 198 x1000/uL (130-400); PROTEIN TOTAL 5.4 g/dL (6.0-8.3); RED CELL DISTRIBUTION WIDTH 16.3 % (11.6-14.6); WHITE BLOOD COUNT 5.1 x1000/uL (4.5-11.0)
[2024-03-22 10:00] LABS: T4 FREE 1.09 ng/dL (0.89-1.76); THYROID STIMULATING HORMONE 2.07 uIU/mL (0.55-4.78)
[2024-03-22 10:06] LABS: INR 1.1; PROTHROMBIN TIME 12.4 sec (9.6-11.0)
[2024-03-22] MEDS: LOSARTAN 100 MG TABLET PO SCH (10:41)
[2024-03-22] MEDS: SPIRONOLACTONE 25MG TABLET PO SCH (10:41)
[2024-03-22] MEDS: ENOXAPARIN 30MG/0.3ML SYR SUBCUT SCH (10:46)
[2024-03-22] MEDS: CEFTRIAXONE 1GM/50ML 50 ML IV SCH (10:57)
[2024-03-22] MEDS: BLOOD SUGAR DIAGNOSTIC STRIP TEST SCH (13:00)
[2024-03-22] MEDS: INSULIN LISPRO 100 UNITS/ML SUBCUT SCH (13:20)
[2024-03-22] MEDS: HYDRALAZINE HCL 50MG TABLET PO SCH (14:14)
[2024-03-22 14:57] LABS: *AMPHETAMINES SCREEN URINE NEGATIVE (NEGATIVE); *BARBITURATES SCREEN URINE NEGATIVE (NEGATIVE); *BENZODIAZEPINES SCREEN URINE NEGATIVE (NEGATIVE); *COCAINE SCREEN URINE PRESUMPTIVE POSITIVE (NEGATIVE); CANNABINOID URINE SCREEN NEGATIVE (NEGATIVE); ECSTASY MDMA SCREEN URINE NEGATIVE (NEGATIVE); METHADONE URINE SCREEN NEGATIVE (NEGATIVE); OPIATES URINE SCREEN NEGATIVE (NEGATIVE); PHENCYCLIDINE URINE SCREEN NEGATIVE (NEGATIVE)
[2024-03-22] MEDS: ATORVASTATIN CALCIUM 40MG TABLET PO SCH (21:00)
[2024-03-23] MEDS: ACETAMINOPHEN 325MG TABLET PO PRN (04:36)
[2024-03-23 06:45] LABS: BASOPHILS % 1.3 % (0.0-2.0); EOSINOPHILS % 2.3 % (0.0-5.0); HEMATOCRIT. 41.8 % (36.0-48.0); HEMOGLOBIN. 13.4 g/dL (12.0-16.0); MEAN CORPUSCULAR HEMOGLOBIN 28.6 pg (28.0-32.0); MEAN CORPUSCULAR HGB CONC 32.1 g/dL (31.0-37.0); MEAN CORPUSCULAR VOLUME 89.3 fL (81.0-99.0); MEAN PLATELET VOLUME 8.8 fl (7.4-10.4); NEUTROPHILS % 69.4 % (40.0-76.0); PLATELET 211 x1000/uL (130-400); RED BLOOD CELL COUNT 4.68 mill/uL (4.2-5.4); RED CELL DISTRIBUTION WIDTH 15.7 % (11.6-14.6); WHITE BLOOD COUNT 6.1 x1000/uL (4.5-11.0)
[2024-03-23 06:58] LABS: CHLORIDE 106 mEq/L (98-107); POTASSIUM 4.1 mEq/L (3.5-5.1); SODIUM 141 mEq/L (136-145)
[2024-03-23 06:59] LABS: CARBON DIOXIDE 28 mEq/L (21-32)
[2024-03-23 07:00] LABS: CALCIUM 8.5 mg/dL (8.7-10.4)
[2024-03-23] MEDS: HYDRALAZINE HCL 25MG TABLET PO SCH (07:00)
[2024-03-23 07:03] LABS: CREATINE KINASE MB FRACTION 2.5 ng/mL (0.5-3.6)
[2024-03-23 07:04] LABS: CREATININE 1.7 mg/dL (0.6-1.0); GLUCOSE 92 mg/dL (70-105)
[2024-03-23 07:05] LABS: CREATINE KINASE 59 IU/L (34-145); UREA NITROGEN BLOOD 40 mg/dL (9-23)
[2024-03-23 07:07] LABS: PHOSPHORUS 3.3 mg/dL (2.5-4.9)
[2024-03-23 10:12] LABS: TROPONIN I HIGH SENSITIVITY 96 ng/L (3.0-34)
[2024-03-23 16:00] VITALS: BP 134/82; PULSE 73; RESP 20; TEMP 36.28068; TEMP 36.3068; O2SAT 98
[2024-03-23 20:00] VITALS: BP 119/78; PULSE 64; RESP 18; TEMP 36.61404; O2SAT 99
[2024-03-23] MEDS: HYDRALAZINE HCL 50MG TABLET PO SCH (21:19)
[2024-03-24 04:00] VITALS: BP 118/76; PULSE 63; RESP 19; TEMP 36.61404; O2SAT 100
[2024-03-24 06:02] LABS: POTASSIUM 4.3 mEq/L (3.5-5.1)
[2024-03-24 06:03] LABS: CALCIUM 8.9 mg/dL (8.7-10.4)
[2024-03-24 06:27] LABS: BASOPHILS % 0.9 % (0.0-2.0); EOSINOPHILS % 2.3 % (0.0-5.0); HEMATOCRIT. 46.7 % (36.0-48.0); HEMOGLOBIN. 15.2 g/dL (12.0-16.0); LYMPHOCYTES % 19.8 % (20.0-50.0); MEAN CORPUSCULAR HEMOGLOBIN 29.2 pg (28.0-32.0); MEAN CORPUSCULAR HGB CONC 32.6 g/dL (31.0-37.0); MEAN CORPUSCULAR VOLUME 89.6 fL (81.0-99.0); MEAN PLATELET VOLUME 9.3 fl (7.4-10.4); MONOCYTES % 12.7 % (2.0-8.0); NEUTROPHILS % 64.3 % (40.0-76.0); PLATELET 234 x1000/uL (130-400); RED BLOOD CELL COUNT 5.21 mill/uL (4.2-5.4); RED CELL DISTRIBUTION WIDTH 16.2 % (11.6-14.6); WHITE BLOOD COUNT 6.5 x1000/uL (4.5-11.0)
[2024-03-24 06:32] LABS: CREATININE 2.3 mg/dL (0.6-1.0)
[2024-03-24 08:00] VITALS: BP 93/59; PULSE 69; RESP 18; TEMP 36.3918; O2SAT 100
[2024-03-24] MEDS: CEFTRIAXONE 1GM/50ML 50 ML IV SCH (09:33)
[2024-03-24] MEDS: HYDROCODONE/ACETAMINOPHEN 5/325MG TABLET PO PRN (09:33)
[2024-03-24 12:00] VITALS: BP 100/60; PULSE 72; RESP 18; TEMP 36.55848; O2SAT 99
[2024-03-24 16:00] VITALS: BP 117/69; PULSE 60; RESP 18; TEMP 36.6696; O2SAT 100
[2024-03-24 20:33] VITALS: BP 169/91; PULSE 102; RESP 19; TEMP 36.22512; O2SAT 97
[2024-03-24] MEDS: MELATONIN 3MG TABLET PO SCH (21:02)
[2024-03-24] MEDS: GUAIFENESIN 600MG ER TABLET PO SCH (21:03)
[2024-03-25 00:30] VITALS: BP 141/77; PULSE 91; RESP 20; TEMP 36.33624; O2SAT 99
[2024-03-25] MEDS: IPRATROPIUM/ALBUTEROL 0.5-3(2.5)MG/3ML NEB HHN SCH (01:36)
[2024-03-25 04:28] VITALS: BP 159/101; PULSE 98; RESP 19; TEMP 36.72516; O2SAT 98
[2024-03-25 08:00] VITALS: BP 105/80; PULSE 62; RESP 18; TEMP 36.6696; O2SAT 98
[2024-03-25 12:00] VITALS: BP 113/72; PULSE 65; RESP 18; TEMP 36.55848; O2SAT 94
[2024-03-25 16:00] VITALS: BP 123/89; PULSE 60; RESP 18; TEMP 37.00296; O2SAT 99
[2024-03-25 18:05] LABS: POTASSIUM 4.3 mEq/L (3.5-5.1)
[2024-03-25 18:06] LABS: CALCIUM 8.9 mg/dL (8.7-10.4)
[2024-03-25 18:11] LABS: BASOPHILS % 1.2 % (0.0-2.0); CREATININE 1.9 mg/dL (0.6-1.0); EOSINOPHILS % 2.2 % (0.0-5.0); HEMATOCRIT. 44.7 % (36.0-48.0); HEMOGLOBIN. 14.1 g/dL (12.0-16.0); LYMPHOCYTES % 22.1 % (20.0-50.0); MEAN CORPUSCULAR HEMOGLOBIN 28.7 pg (28.0-32.0); MEAN CORPUSCULAR HGB CONC 31.6 g/dL (31.0-37.0); MEAN CORPUSCULAR VOLUME 90.6 fL (81.0-99.0); MONOCYTES % 14.8 % (2.0-8.0); NEUTROPHILS % 59.7 % (40.0-76.0); PLATELET 250 x1000/uL (130-400); RED BLOOD CELL COUNT 4.93 mill/uL (4.2-5.4); RED CELL DISTRIBUTION WIDTH 16.5 % (11.6-14.6); WHITE BLOOD COUNT 4.8 x1000/uL (4.5-11.0)
[2024-03-25 20:00] VITALS: BP 117/70; PULSE 69; RESP 20; TEMP 37.00296; O2SAT 98
[2024-03-26] VITALS: BP 125/73; PULSE 60; RESP 18; TEMP 36.6696; O2SAT 99
[2024-03-26 04:00] VITALS: BP 141/90; PULSE 74; RESP 16; TEMP 37.00296; O2SAT 99
[2024-03-26 06:23] LABS: POTASSIUM 4.4 mEq/L (3.5-5.1)
[2024-03-26 06:24] LABS: CALCIUM 8.8 mg/dL (8.7-10.4)
[2024-03-26 06:30] LABS: CREATININE 1.7 mg/dL (0.6-1.0)
[2024-03-26 07:14] LABS: BASOPHILS % 1.3 % (0.0-2.0); EOSINOPHILS % 2.6 % (0.0-5.0); HEMATOCRIT. 45.2 % (36.0-48.0); HEMOGLOBIN. 14.3 g/dL (12.0-16.0); LYMPHOCYTES % 19.9 % (20.0-50.0); MEAN CORPUSCULAR HEMOGLOBIN 28.7 pg (28.0-32.0); MEAN CORPUSCULAR HGB CONC 31.7 g/dL (31.0-37.0); MEAN CORPUSCULAR VOLUME 90.6 fL (81.0-99.0); MEAN PLATELET VOLUME 8.6 fl (7.4-10.4); MONOCYTES % 14.3 % (2.0-8.0); NEUTROPHILS % 61.9 % (40.0-76.0); PLATELET 249 x1000/uL (130-400); RED BLOOD CELL COUNT 4.99 mill/uL (4.2-5.4); RED CELL DISTRIBUTION WIDTH 16.4 % (11.6-14.6); WHITE BLOOD COUNT 5.4 x1000/uL (4.5-11.0)
[2024-03-26 08:00] VITALS: BP 133/70; PULSE 82; RESP 19; TEMP 36.89184; O2SAT 100
[2024-03-26] MEDS ORDERED: GUAI200T5 MT (09:30)
[2024-03-26] MEDS ORDERED: ALBU90AE INH (09:30)
[2024-03-26] MEDS ORDERED: NIFE-32 PO (09:30)
[2024-03-26] MEDS ORDERED: HYDR50TA39 PO (09:30)
[2024-03-26 11:44] VITALS: BP_SYST 109; BP_SYST 123; BP_DIAS 72; BP_DIAS 80; PULSE 63; TEMP 98.1; O2SAT 100
[2024-03-26 12:00] VITALS: BP 109/72; PULSE 75; RESP 17; TEMP 37.05852; O2SAT 100
== END 2024-03-26 18:26 | disposition home or self-care (01) | DRG 194 ==
LOC: ER 13:13 → MICUSO 16:52 → EDBEDREQTM 16:58 → EDBEDREQSVC 16:58 → EDBEDREQ 16:58 → EDBEDREQSVC 03-22 09:02 → 5WST 03-23 12:43 → 8WST 03-23 16:39
PROVIDERS: ADMIT Internal Medicine; ATTEND Internal Medicine
DX: I13.0 Hypertensive heart and chronic kidney disease with heart failure and stage 1 through stage 4 chronic kidney disease, or unspecified chronic kidney disease (principal); N17.0 Acute kidney failure with tubular necrosis; J96.01 Acute respiratory failure with hypoxia; J44.1 Chronic obstructive pulmonary disease with (acute) exacerbation; I21.A1 Myocardial infarction type 2; F14.10 Cocaine abuse, uncomplicated; I42.7 Cardiomyopathy due to drug and external agent; E78.5 Hyperlipidemia, unspecified; D64.9 Anemia, unspecified; Z20.822 Contact with and (suspected) exposure to COVID-19; J96.02 Acute respiratory failure with hypercapnia; I50.43 Acute on chronic combined systolic (congestive) and diastolic (congestive) heart failure; N20.0 Calculus of kidney; I16.1 Hypertensive emergency; N39.0 Urinary tract infection, site not specified; N26.1 Atrophy of kidney (terminal); I67.1 Cerebral aneurysm, nonruptured; G35 Multiple sclerosis; N18.30 Chronic kidney disease, stage 3 unspecified; J68.0 Bronchitis and pneumonitis due to chemicals, gases, fumes and vapors; T40.5X5A Adverse effect of cocaine, initial encounter; Z91.148 Patient's other noncompliance with medication regimen for other reason; I25.2 Old myocardial infarction; Z59.00 Homelessness unspecified; Y92.89 Other specified places as the place of occurrence of the external cause
CPT/HCPCS: 36415; 71045; 76770; 80048; 80076; 82550; 82553; 82962; 83735; 83880; 84100; 84484; 85025; 86850; 86900; 93005; 99291; J0696; J1650; J1940; J3490

== ENCOUNTER 2024-04-05 03:38 | Inpatient (IN) | payer MEDICAID, OTHER ==
[~2024-04-05] VITALS: Ht 167.6 cm; Wt 52.2 kg
[~2024-04-05 03:38] MED LIST changes: +GUAI200T5 MT; +HYDR50TA39 PO; -LOSA100T33 PO; +NIFE-32 PO; -SPIR25TA PO
[2024-04-05 04:55] LABS: BASOPHILS % 1.3 % (0.0-2.0); EOSINOPHILS % 4.2 % (0.0-5.0); HEMATOCRIT. 41.9 % (36.0-48.0); HEMOGLOBIN. 13.1 g/dL (12.0-16.0); LYMPHOCYTES % 25.4 % (20.0-50.0); MEAN CORPUSCULAR HEMOGLOBIN 28.7 pg (28.0-32.0); MEAN CORPUSCULAR HGB CONC 31.3 g/dL (31.0-37.0); MEAN CORPUSCULAR VOLUME 91.7 fL (81.0-99.0); MEAN PLATELET VOLUME 8.6 fl (7.4-10.4); MONOCYTES % 10.4 % (2.0-8.0); NEUTROPHILS % 58.7 % (40.0-76.0); PLATELET 241 x1000/uL (130-400); RED BLOOD CELL COUNT 4.56 mill/uL (4.2-5.4); RED CELL DISTRIBUTION WIDTH 17.3 % (11.6-14.6); WHITE BLOOD COUNT 5.7 x1000/uL (4.5-11.0)
[2024-04-05 04:59] LABS: CHLORIDE 114 mEq/L (98-107); POTASSIUM 4.7 mEq/L (3.5-5.1); SODIUM 147 mEq/L (136-145)
[2024-04-05 05:00] LABS: CARBON DIOXIDE 28 mEq/L (21-32)
[2024-04-05 05:05] LABS: CREATININE 1.8 mg/dL (0.6-1.0); GLUCOSE 84 mg/dL (70-105); UREA NITROGEN BLOOD 37 mg/dL (9-23)
[2024-04-05 05:10] LABS: TROPONIN I HIGH SENSITIVITY 93 ng/L (3.0-34)
[2024-04-05] MEDS ORDERED: DOCUSATE SODIUM 100MG CAPSULE PO PRN (10:45)
[2024-04-05] MEDS ORDERED: ACETAMINOPHEN 325MG TABLET PO PRN (10:45)
[2024-04-05] MEDS ORDERED: MAGNESIUM/ALUMINUM HYDROXIDE/SIMETHICONE 30ML UDC PO PRN (10:45)
[2024-04-05] MEDS ORDERED: ONDANSETRON HCL 4MG/2ML INJ IV PRN (10:45)
[2024-04-05] MEDS ORDERED: IPRATROPIUM/ALBUTEROL 0.5-3(2.5)MG/3ML NEB HHN PRN (10:45)
[2024-04-05] MEDS: SODIUM CHLORIDE 0.45% 500 ML IV ONE (11:08)
[2024-04-05] MEDS: FUROSEMIDE 40MG TABLET PO SCH (14:05)
[2024-04-05] MEDS: NIFEDIPINE XL 60MG TAB PO SCH (14:05)
[2024-04-05] MEDS: ENOXAPARIN 30MG/0.3ML SYR SUBCUT SCH (14:06)
[2024-04-05 14:30] LABS: CREATINE KINASE 89 IU/L (34-145)
[2024-04-05 15:01] LABS: TROPONIN I HIGH SENSITIVITY 91 ng/L (3.0-34)
[2024-04-05] MEDS: HYDRALAZINE HCL 50MG TABLET PO SCH (15:07)
[2024-04-05 17:00] VITALS: BP 161/100; PULSE 93; RESP 20; TEMP 36.55848; O2SAT 96
[2024-04-05] MEDS: CLONIDINE 0.1MG TABLET PO PRN (18:48)
[2024-04-05 19:00] VITALS: BP 161/100; PULSE 93; RESP 20; TEMP 36.5848
[2024-04-05 20:00] VITALS: BP 147/96; PULSE 89; RESP 18; TEMP 36.50292; O2SAT 97
[2024-04-05] MEDS: ATORVASTATIN CALCIUM 40MG TABLET PO SCH (20:56)
[2024-04-05] MEDS: FAMOTIDINE 20MG/2ML VIAL IV SCH (20:56)
[2024-04-06] VITALS: BP 138/76; PULSE 77; RESP 18; TEMP 36.50292; O2SAT 99
[2024-04-06 01:41] LABS: CREATINE KINASE 82 IU/L (34-145)
[2024-04-06 02:14] LABS: TROPONIN I HIGH SENSITIVITY 93 ng/L (3.0-34)
[2024-04-06 04:00] VITALS: BP 147/99; PULSE 61; RESP 18; TEMP 36.44736; O2SAT 99
[2024-04-06 06:55] LABS: BASOPHILS % 0.6 % (0.0-2.0); CALCIUM 8.8 mg/dL (8.7-10.4); EOSINOPHILS % 2.4 % (0.0-5.0); HEMATOCRIT. 39.8 % (36.0-48.0); HEMOGLOBIN. 12.7 g/dL (12.0-16.0); LYMPHOCYTES % 25.4 % (20.0-50.0); MEAN CORPUSCULAR HEMOGLOBIN 28.9 pg (28.0-32.0); MEAN CORPUSCULAR HGB CONC 31.9 g/dL (31.0-37.0); MEAN CORPUSCULAR VOLUME 90.5 fL (81.0-99.0); MEAN PLATELET VOLUME 8.7 fl (7.4-10.4); MONOCYTES % 6.8 % (2.0-8.0); NEUTROPHILS % 64.8 % (40.0-76.0); PLATELET 228 x1000/uL (130-400); POTASSIUM 4.2 mEq/L (3.5-5.1); RED CELL DISTRIBUTION WIDTH 16.6 % (11.6-14.6)
[2024-04-06 07:01] LABS: CREATININE 1.5 mg/dL (0.6-1.0)
[2024-04-06 07:03] LABS: THYROID STIMULATING HORMONE 0.53 uIU/mL (0.55-4.78)
[2024-04-06 08:00] VITALS: BP 130/80; PULSE 75; RESP 18; TEMP 36.00288; O2SAT 100
[2024-04-06 12:00] VITALS: BP 139/96; PULSE 71; RESP 17; TEMP 36.16956; O2SAT 97
[2024-04-06 16:00] VITALS: BP 114/74; PULSE 75; RESP 18; TEMP 36.16956; O2SAT 98
[2024-04-06 20:00] VITALS: BP 121/80; PULSE 68; RESP 18; TEMP 36.3918; O2SAT 99
[2024-04-06] MEDS: ACETAMINOPHEN 325MG TABLET PO PRN (20:10)
[2024-04-07] VITALS: BP 159/93; PULSE 69; RESP 18; TEMP 35.78064; O2SAT 100
[2024-04-07 04:00] VITALS: BP 132/93; PULSE 66; RESP 18; TEMP 36.61404; O2SAT 100
[2024-04-07 08:00] VITALS: BP 143/102; PULSE 74; RESP 19; TEMP 36.55848; O2SAT 100
[2024-04-07] MEDS: GUAIFENESIN 200MG/10ML SUGAR FREE UDC PO PRN (08:55)
[2024-04-07 12:00] VITALS: BP 152/100; PULSE 78; RESP 18; TEMP 36.28068; O2SAT 100
[2024-04-07 13:40] VITALS: BP 152/100; PULSE 78; TEMP 97.3; O2SAT 100
== END 2024-04-07 17:35 | disposition home or self-care (01) | DRG 426 ==
LOC: ER 03:38 → EDBEDREQ 08:27 → EDBEDREQTM 08:27 → 8WST 17:19
PROVIDERS: ADMIT Internal Medicine; ATTEND Internal Medicine
DX: E87.0 Hyperosmolality and hypernatremia (principal); I21.A1 Myocardial infarction type 2; N17.9 Acute kidney failure, unspecified; I13.0 Hypertensive heart and chronic kidney disease with heart failure and stage 1 through stage 4 chronic kidney disease, or unspecified chronic kidney disease; I50.22 Chronic systolic (congestive) heart failure; F14.10 Cocaine abuse, uncomplicated; F17.210 Nicotine dependence, cigarettes, uncomplicated; R07.89 Other chest pain; J44.89 Other specified chronic obstructive pulmonary disease; J98.11 Atelectasis; N18.9 Chronic kidney disease, unspecified; Z79.899 Other long term (current) drug therapy
CPT/HCPCS: 36415; 71045; 80048; 82550; 83880; 84443; 84484; 85025; 93005; 93970; 99285; A4606; J1650; J3490

== ENCOUNTER 2024-04-15 12:48 | Emergency (ER) | payer MEDICAID ==
[~2024-04-15] VITALS: Ht 167.6 cm; Wt 50.0 kg
[2024-04-15 12:57] VITALS: BP 195/115; PULSE 91; RESP 18; TEMP 100; O2SAT 99
[2024-04-15] MEDS ORDERED: IPRATROPIUM/ALBUTEROL 0.5-3(2.5)MG/3ML NEB HHN ONE (13:45)
[2024-04-15 14:27] LABS: BASOPHILS % 1.1 % (0.0-2.0); HEMATOCRIT. 38.5 % (36.0-48.0); HEMOGLOBIN. 12.3 g/dL (12.0-16.0); LYMPHOCYTES % 21.4 % (20.0-50.0); MEAN CORPUSCULAR HEMOGLOBIN 29.3 pg (28.0-32.0); MEAN CORPUSCULAR VOLUME 91.4 fL (81.0-99.0); MEAN PLATELET VOLUME 9.3 fl (7.4-10.4); MONOCYTES % 8.4 % (2.0-8.0); NEUTROPHILS % 67.1 % (40.0-76.0); PLATELET 241 x1000/uL (130-400); RED BLOOD CELL COUNT 4.21 mill/uL (4.2-5.4); RED CELL DISTRIBUTION WIDTH 17.6 % (11.6-14.6); WHITE BLOOD COUNT 5.2 x1000/uL (4.5-11.0)
[2024-04-15 14:34] LABS: INR 1.1; PROTHROMBIN TIME 11.9 sec (9.6-11.0)
[2024-04-15 14:42] LABS: CARBON DIOXIDE 24 mEq/L (21-32); CHLORIDE 112 mEq/L (98-107); SODIUM 145 mEq/L (136-145)
[2024-04-15 14:43] LABS: CALCIUM 8.9 mg/dL (8.7-10.4)
[2024-04-15 14:48] LABS: CREATININE 1.9 mg/dL (0.6-1.0); GLUCOSE 148 mg/dL (70-105); UREA NITROGEN BLOOD 36 mg/dL (9-23)
[2024-04-15 15:11] LABS: TROPONIN I HIGH SENSITIVITY 117 ng/L (3.0-34)
[2024-04-15 17:58] LABS: TROPONIN I HIGH SENSITIVITY 124 ng/L (3.0-34)
[2024-04-15] MEDS ORDERED: P50 MT (18:08)
[2024-04-15] MEDS ORDERED: PREDNISONE 20MG TABLET PO ONE (18:15)
== END 2024-04-15 21:08 | disposition home or self-care (01) ==
LOC: ER 12:55
DX: J44.1 Chronic obstructive pulmonary disease with (acute) exacerbation (principal); I11.0 Hypertensive heart disease with heart failure; I50.9 Heart failure, unspecified; Z79.899 Other long term (current) drug therapy; Z79.82 Long term (current) use of aspirin
CPT/HCPCS: 36415; 71045; 80048; 82962; 84484; 85025; 99284

== ENCOUNTER 2024-05-02 17:50 | Inpatient (IN) | payer MEDICAID, OTHER ==
[~2024-05-02] VITALS: Ht 167.6 cm; Wt 51.7 kg
[~2024-05-02 17:50] MED LIST changes: -GUAI200T5 MT
[2024-05-02] MEDS ORDERED: MORPHINE SULFATE 2 MG/ML INJ (NOT FOR IM USE) IV ONE (19:15)
[2024-05-02] MEDS ORDERED: MORPHINE SULFATE 4 MG/ML INJ (FOR IV/IM USE) IV ONE (19:45)
[2024-05-02 20:13] LABS: BASOPHILS % 0.6 % (0.0-2.0); EOSINOPHILS % 2.9 % (0.0-5.0); HEMATOCRIT. 43.6 % (36.0-48.0); LYMPHOCYTES % 17.4 % (20.0-50.0); MEAN CORPUSCULAR HEMOGLOBIN 29.6 pg (28.0-32.0); MEAN CORPUSCULAR VOLUME 92.3 fL (81.0-99.0); MEAN PLATELET VOLUME 8.9 fl (7.4-10.4); MONOCYTES % 8.2 % (2.0-8.0); NEUTROPHILS % 70.9 % (40.0-76.0); PLATELET 177 x1000/uL (130-400); RED BLOOD CELL COUNT 4.73 mill/uL (4.2-5.4); RED CELL DISTRIBUTION WIDTH 18.1 % (11.6-14.6); WHITE BLOOD COUNT 6.8 x1000/uL (4.5-11.0)
[2024-05-02] MEDS ORDERED: ASPIRIN 325MG EC TABLET PO ONE (20:15)
[2024-05-02] MEDS ORDERED: METHYLPREDNISOLONE SOD SUCC 125MG/2ML (ACT-O-VIAL) IV ONE (20:15)
[2024-05-02 20:27] LABS: CARBON DIOXIDE 30 mEq/L (21-32); CHLORIDE 111 mEq/L (98-107); POTASSIUM 4.1 mEq/L (3.5-5.1); SODIUM 148 mEq/L (136-145)
[2024-05-02 20:33] LABS: CREATININE 1.9 mg/dL (0.6-1.0); GLUCOSE 76 mg/dL (70-105); UREA NITROGEN BLOOD 33 mg/dL (9-23)
[2024-05-02 20:38] LABS: PARTIAL THROMBOPLASTIN TIME 25.6 sec (23.4-31.0); PROTHROMBIN TIME 11.6 sec (9.6-11.0)
[2024-05-02 20:39] LABS: TROPONIN I HIGH SENSITIVITY 124 ng/L (3.0-34)
[2024-05-02] MEDS: FUROSEMIDE 40MG/4ML VIAL IVP ONE (22:49)
[2024-05-02] MEDS: ASPIRIN 325MG EC TABLET PO NR (22:49)
[2024-05-02] MEDS: METHYLPREDNISOLONE SOD SUCC 125MG/2ML (ACT-O-VIAL) IV NR (22:49)
[2024-05-02] MEDS: ENOXAPARIN 60MG/0.6ML SYR SUBCUT ONE (22:53)
[2024-05-03] VITALS (9 sets, daily range): BP systolic 114–159; BP diastolic 66–119; PULSE 59–86; RESP 16–20; TEMP 36.1–37.1; O2SAT 92–99
[2024-05-03] MEDS ORDERED: GUAIFENESIN 200MG/10ML SUGAR FREE UDC PO PRN (00:15)
[2024-05-03] MEDS ORDERED: ZOLPIDEM TARTRATE 5MG TABLET PO PRN (00:15)
[2024-05-03] MEDS ORDERED: ACETAMINOPHEN 325MG TABLET PO PRN (00:15)
[2024-05-03] MEDS ORDERED: MAGNESIUM/ALUMINUM HYDROXIDE/SIMETHICONE 30ML UDC PO PRN (00:15)
[2024-05-03] MEDS: HYDROCODONE/ACETAMINOPHEN 5/325MG TABLET PO PRN (00:36)
[2024-05-03] MEDS: METHYLPREDNISOLONE SOD SUCC 40MG/ML (ACT-O-VIAL) IV SCH (00:36)
[2024-05-03] MEDS: CEFTRIAXONE 1GM/50ML 50 ML IV SCH (02:22)
[2024-05-03] MEDS: AZITHROMYCIN 500MG/250ML 250 ML IV SCH (05:06)
[2024-05-03] MEDS: CLONIDINE 0.1MG TABLET PO PRN (05:10)
[2024-05-03] MEDS: ONDANSETRON HCL 4MG/2ML INJ IV PRN (06:09)
[2024-05-03] MEDS: MORPHINE SULFATE 2 MG/ML INJ (NOT FOR IM USE) IV PRN (06:15)
[2024-05-03 07:40] LABS: CREATINE KINASE MB FRACTION 5.8 ng/mL (0.5-3.6)
[2024-05-03] MEDS: ENOXAPARIN 30MG/0.3ML SYR SUBCUT SCH (09:00)
[2024-05-03] MEDS: FUROSEMIDE 40MG/4ML VIAL IVP SCH (09:20)
[2024-05-03] MEDS: PANTOPRAZOLE SODIUM 40 MG/VIAL IV SCH (09:22)
[2024-05-03 13:14] LABS: *AMPHETAMINES SCREEN URINE NEGATIVE (NEGATIVE); *BARBITURATES SCREEN URINE NEGATIVE (NEGATIVE); *BENZODIAZEPINES SCREEN URINE NEGATIVE (NEGATIVE); *COCAINE SCREEN URINE PRESUMPTIVE POSITIVE (NEGATIVE); CANNABINOID URINE SCREEN NEGATIVE (NEGATIVE); ECSTASY MDMA SCREEN URINE NEGATIVE (NEGATIVE); METHADONE URINE SCREEN NEGATIVE (NEGATIVE); OPIATES URINE SCREEN NEGATIVE (NEGATIVE); PHENCYCLIDINE URINE SCREEN NEGATIVE (NEGATIVE)
[2024-05-03] MEDS: NIFEDIPINE XL 30MG TAB PO SCH (13:43)
[2024-05-03 17:33] LABS: CREATINE KINASE MB FRACTION 5.3 ng/mL (0.5-3.6)
[2024-05-03] MEDS: IPRATROPIUM/ALBUTEROL 0.5-3(2.5)MG/3ML NEB HHN ONE (20:04)
[2024-05-03] MEDS ORDERED: INFLUENZA VACCINE 05/PF 0.5 ML SYRINGE IM ONE (21:00)
[2024-05-03] MEDS ORDERED: PNEUMOCOCCAL 20-VAL CONJ-DIP CRM 0.5ML IM ONE (21:00)
[2024-05-03] MEDS: DOXYCYCLINE HYCLATE 100MG CAPSULE PO SCH (21:28)
[2024-05-03 22:51] LABS: TROPONIN I HIGH SENSITIVITY 51 ng/L (3.0-34)
[2024-05-04] VITALS (9 sets, daily range): BP systolic 133–152; BP diastolic 79–110; PULSE 68–75; RESP 14–22; TEMP 36.1–36.7; O2SAT 93–99
[2024-05-04] MEDS: IPRATROPIUM/ALBUTEROL 0.5-3(2.5)MG/3ML NEB NEB SCH (04:15)
[2024-05-04 10:54] LABS: HEMATOCRIT. 40.8 % (36.0-48.0); HEMOGLOBIN. 13.1 g/dL (12.0-16.0); MEAN CORPUSCULAR HEMOGLOBIN 29.6 pg (28.0-32.0); MEAN CORPUSCULAR VOLUME 92.4 fL (81.0-99.0); MEAN PLATELET VOLUME 9.4 fl (7.4-10.4); PLATELET 173 x1000/uL (130-400); RED BLOOD CELL COUNT 4.42 mill/uL (4.2-5.4); RED CELL DISTRIBUTION WIDTH 18.4 % (11.6-14.6)
[2024-05-04 11:03] LABS: POTASSIUM 4.4 mEq/L (3.5-5.1)
[2024-05-04 11:05] LABS: CALCIUM 8.7 mg/dL (8.7-10.4)
[2024-05-04 11:06] LABS: DIFFERENTIAL COMMENT 1
[2024-05-04] MEDS ORDERED: METH4TAB95 MT (17:08)
[2024-05-06 16:31] LABS: ANISOCYTOSIS 1+; GIANT PLATELETS FEW; PLATELET ESTIMATE NORMAL
== END 2024-05-04 18:50 | disposition home or self-care (01) | DRG 194 ==
LOC: ER 17:50 → 7WST 21:22 → EDBEDREQ 22:05 → EDBEDREQTM 22:05
PROVIDERS: ADMIT Internal Medicine; ATTEND Internal Medicine
DX: I13.0 Hypertensive heart and chronic kidney disease with heart failure and stage 1 through stage 4 chronic kidney disease, or unspecified chronic kidney disease (principal); J96.01 Acute respiratory failure with hypoxia; I21.A1 Myocardial infarction type 2; E78.5 Hyperlipidemia, unspecified; I50.23 Acute on chronic systolic (congestive) heart failure; E87.0 Hyperosmolality and hypernatremia; N17.9 Acute kidney failure, unspecified; F14.10 Cocaine abuse, uncomplicated; F17.210 Nicotine dependence, cigarettes, uncomplicated; J44.1 Chronic obstructive pulmonary disease with (acute) exacerbation; N18.4 Chronic kidney disease, stage 4 (severe); I42.7 Cardiomyopathy due to drug and external agent; N26.1 Atrophy of kidney (terminal); I67.1 Cerebral aneurysm, nonruptured; N20.0 Calculus of kidney; Z59.00 Homelessness unspecified; Z91.148 Patient's other noncompliance with medication regimen for other reason; Z91.199 Patient's noncompliance with other medical treatment and regimen due to unspecified reason
CPT/HCPCS: 36415; 71045; 76700; 80048; 80305; 82550; 82553; 83880; 84484; 85025; 90686; 90732; 93005; 93970; 94070; 94640; 94760; 99291; A4606; J0456; J0696; J1650; J1940; J2270; J2405; J2470; J2919; J2920

== ENCOUNTER 2024-06-26 00:45 | Emergency (ER) | payer MEDICAID ==
[~2024-06-26] VITALS: Ht 167.6 cm; Wt 55.0 kg
[2024-06-26 01:32] LABS: BASOPHILS % 0.9 % (0.0-2.0); EOSINOPHILS % 0.9 % (0.0-5.0); HEMOGLOBIN. 15.2 g/dL (12.0-16.0); LYMPHOCYTES % 17.5 % (20.0-50.0); MEAN CORPUSCULAR HEMOGLOBIN 30.6 pg (28.0-32.0); MEAN CORPUSCULAR HGB CONC 32.3 g/dL (31.0-37.0); MEAN CORPUSCULAR VOLUME 94.8 fL (81.0-99.0); MONOCYTES % 6.6 % (2.0-8.0); NEUTROPHILS % 74.1 % (40.0-76.0); PLATELET 181 x1000/uL (130-400); RED BLOOD CELL COUNT 4.95 mill/uL (4.2-5.4); RED CELL DISTRIBUTION WIDTH 16.9 % (11.6-14.6); WHITE BLOOD COUNT 7.9 x1000/uL (4.5-11.0)
[2024-06-26 01:40] LABS: CARBON DIOXIDE 24 mEq/L (21-32); CHLORIDE 110 mEq/L (98-107); SODIUM 143 mEq/L (136-145)
[2024-06-26 01:41] LABS: CALCIUM 9.3 mg/dL (8.7-10.4)
[2024-06-26 01:45] LABS: CREATININE 2.2 mg/dL (0.6-1.0)
[2024-06-26 01:46] LABS: GLUCOSE 96 mg/dL (70-105); UREA NITROGEN BLOOD 28 mg/dL (9-23)
[2024-06-26 01:50] LABS: ETHANOL BLOOD < 10 mg/dL (<10)
[2024-06-26 01:51] LABS: TROPONIN I HIGH SENSITIVITY 132 ng/L (3.0-34)
[2024-06-26 02:05] VITALS: PULSE 81; RESP 20; O2SAT 98
[2024-06-26] MEDS: ALBUTEROL (0.083%) 2.5MG/3ML NEB HHN STA (02:05)
[2024-06-26 02:29] LABS: INR 1.1; PARTIAL THROMBOPLASTIN TIME 26.9 sec (23.4-31.0); PROTHROMBIN TIME 11.4 sec (9.6-11.0)
[2024-06-26] MEDS: FUROSEMIDE 40MG/4ML VIAL IVP NR (02:29)
[2024-06-26] MEDS: ASPIRIN 325MG EC TABLET PO NR (02:29)
[2024-06-26] MEDS: NITROGLYCERIN OINT 1GM/INCH UDPKT TD NR (02:39)
[2024-06-26 04:18] LABS: *AMPHETAMINES SCREEN URINE NEGATIVE (NEGATIVE)
[2024-06-26 04:19] LABS: *BARBITURATES SCREEN URINE NEGATIVE (NEGATIVE); *BENZODIAZEPINES SCREEN URINE NEGATIVE (NEGATIVE); *COCAINE SCREEN URINE PRESUMPTIVE POSITIVE (NEGATIVE); CANNABINOID URINE SCREEN NEGATIVE (NEGATIVE); ECSTASY MDMA SCREEN URINE NEGATIVE (NEGATIVE); METHADONE URINE SCREEN NEGATIVE (NEGATIVE); OPIATES URINE SCREEN NEGATIVE (NEGATIVE); PHENCYCLIDINE URINE SCREEN NEGATIVE (NEGATIVE)
[2024-06-26 09:06] VITALS: BP 160/90; PULSE 80; RESP 18; TEMP 37.2; O2SAT 98
[2024-08-06] MEDS ORDERED: SPIR25TA6 PO (09:35)
[2024-08-06] MEDS ORDERED: LISI20TA31 PO (09:35)
== END 2024-06-26 04:01 | disposition short-term general hospital (02) ==
LOC: ER 00:45
DX: I50.9 Heart failure, unspecified (principal); J44.1 Chronic obstructive pulmonary disease with (acute) exacerbation; I13.0 Hypertensive heart and chronic kidney disease with heart failure and stage 1 through stage 4 chronic kidney disease, or unspecified chronic kidney disease; N18.9 Chronic kidney disease, unspecified; F17.210 Nicotine dependence, cigarettes, uncomplicated; Z79.82 Long term (current) use of aspirin; Z79.899 Other long term (current) drug therapy; F10.90 Alcohol use, unspecified, uncomplicated; Y90.9 Presence of alcohol in blood, level not specified
CPT/HCPCS: 80305; 80048; 80320; 83880; 85025; 85610; 85730; 84484; 36415; 71045; 94640; 93005; 96374; 99285; J1940; Z7610 ×4; G0480

== ENCOUNTER 2024-07-07 05:22 | Inpatient (IN) | payer OTHER ==
[2024-07-07] VITALS (7 sets, daily range): BP systolic 134–168; BP diastolic 87–118; PULSE 73–91; RESP 17–21; TEMP 36.4–36.6; O2SAT 97–100
[~2024-07-07] VITALS: Ht 170.2 cm; Wt 47.6 kg
[2024-07-07] MEDS: METHYLPREDNISOLONE SOD SUCC 125MG/2ML (ACT-O-VIAL) IV STA (06:31)
[2024-07-07] MEDS: ALBUTEROL (0.083%) 2.5MG/3ML NEB HHN STA (06:35)
[2024-07-07] MEDS: IPRATROPIUM BROMIDE (0.02%) 0.5MG/2.5ML NEB HHN STA (06:35)
[2024-07-07 06:57] LABS: BASOPHILS % 1.5 % (0.0-2.0); EOSINOPHILS % 2.8 % (0.0-5.0); HEMATOCRIT. 38.7 % (36.0-48.0); HEMOGLOBIN. 12.3 g/dL (12.0-16.0); LYMPHOCYTES % 30.7 % (20.0-50.0); MEAN CORPUSCULAR HEMOGLOBIN 30.7 pg (28.0-32.0); MEAN CORPUSCULAR HGB CONC 31.9 g/dL (31.0-37.0); MEAN CORPUSCULAR VOLUME 96.1 fL (81.0-99.0); MEAN PLATELET VOLUME 8.9 fl (7.4-10.4); MONOCYTES % 9.7 % (2.0-8.0); NEUTROPHILS % 55.3 % (40.0-76.0); PLATELET 198 x1000/uL (130-400); RED BLOOD CELL COUNT 4.02 mill/uL (4.2-5.4); RED CELL DISTRIBUTION WIDTH 15.6 % (11.6-14.6); WHITE BLOOD COUNT 5.2 x1000/uL (4.5-11.0)
[2024-07-07 07:07] LABS: CHLORIDE 110 mEq/L (98-107); POTASSIUM 3.8 mEq/L (3.5-5.1); SODIUM 148 mEq/L (136-145)
[2024-07-07 07:08] LABS: CALCIUM 9.3 mg/dL (8.7-10.4); CARBON DIOXIDE 29 mEq/L (21-32)
[2024-07-07 07:13] LABS: GLUCOSE 120 mg/dL (70-105); UREA NITROGEN BLOOD 32 mg/dL (9-23)
[2024-07-07] MEDS: FUROSEMIDE 40MG/4ML VIAL IVP ONE (07:19)
[2024-07-07] MEDS: FUROSEMIDE 40MG TABLET PO ONE (07:28)
[2024-07-07 07:32] LABS: CREATININE 1.5 mg/dL (0.6-1.0)
[2024-07-07 07:33] LABS: TROPONIN I HIGH SENSITIVITY 162 ng/L (3.0-34)
[2024-07-07] MEDS ORDERED: ONDANSETRON HCL 4MG/2ML INJ IV PRN (11:15)
[2024-07-07] MEDS ORDERED: CLONIDINE 0.2MG TABLET PO PRN (11:15)
[2024-07-07] MEDS ORDERED: ACETAMINOPHEN 325MG TABLET PO PRN (11:15)
[2024-07-07] MEDS ORDERED: IPRATROPIUM/ALBUTEROL 0.5-3(2.5)MG/3ML NEB NEB PRN (11:15)
[2024-07-07] MEDS ORDERED: NALOXONE HCL 0.4MG/ML VIAL IV PRN (11:30)
[2024-07-07] MEDS: HYDRALAZINE 20MG/ML VIAL IV NR (12:09)
[2024-07-07] MEDS: FUROSEMIDE 40MG/4ML VIAL IVP SCH (12:09)
[2024-07-07] MEDS: ASPIRIN 81MG TABLET PO SCH (12:09)
[2024-07-07] MEDS: CARVEDILOL 12.5MG TABLET PO SCH (12:10)
[2024-07-07] MEDS: NIFEDIPINE XL 60MG TAB PO SCH (12:10)
[2024-07-07] MEDS: HYDRALAZINE HCL 50MG TABLET PO SCH (15:00)
[2024-07-07 15:37] LABS: TROPONIN I HIGH SENSITIVITY 69 ng/L (3.0-34)
[2024-07-07] MEDS: ATORVASTATIN CALCIUM 40MG TABLET PO SCH (21:05)
[2024-07-08] VITALS: BP 121/75; PULSE 76; RESP 18; TEMP 36.6; O2SAT 99
[2024-07-08 00:11] LABS: TROPONIN I HIGH SENSITIVITY 87 ng/L (3.0-34)
[2024-07-08 04:00] VITALS: BP 134/93; PULSE 85; RESP 17; TEMP 36.4; O2SAT 98
[2024-07-08 06:25] LABS: POTASSIUM 3.8 mEq/L (3.5-5.1)
[2024-07-08 06:27] LABS: CALCIUM 8.9 mg/dL (8.7-10.4)
[2024-07-08 06:31] LABS: CREATININE 1.4 mg/dL (0.6-1.0)
[2024-07-08 06:45] LABS: BASOPHILS % 0.7 % (0.0-2.0); EOSINOPHILS % 0.7 % (0.0-5.0); HEMATOCRIT. 41.3 % (36.0-48.0); HEMOGLOBIN. 13.5 g/dL (12.0-16.0); LYMPHOCYTES % 16.2 % (20.0-50.0); MEAN CORPUSCULAR HEMOGLOBIN 30.6 pg (28.0-32.0); MEAN CORPUSCULAR HGB CONC 32.7 g/dL (31.0-37.0); MEAN CORPUSCULAR VOLUME 93.5 fL (81.0-99.0); MEAN PLATELET VOLUME 9.6 fl (7.4-10.4); MONOCYTES % 8.1 % (2.0-8.0); NEUTROPHILS % 74.3 % (40.0-76.0); PLATELET 197 x1000/uL (130-400); RED BLOOD CELL COUNT 4.41 mill/uL (4.2-5.4); RED CELL DISTRIBUTION WIDTH 15.7 % (11.6-14.6); WHITE BLOOD COUNT 9.9 x1000/uL (4.5-11.0)
[2024-07-08 08:00] VITALS: BP 127/85; PULSE 81; RESP 18; TEMP 36.9; O2SAT 97
[2024-07-08] MEDS: ENOXAPARIN 40MG/0.4ML SYR SUBCUT SCH (08:40)
[2024-07-08] MEDS: PANTOPRAZOLE SODIUM 40 MG/VIAL IV SCH (08:40)
[2024-07-08 12:00] VITALS: BP 108/71; PULSE 77; RESP 18; TEMP 36.6; O2SAT 97
[2024-07-08 16:00] VITALS: BP 115/81; PULSE 64; PULSE 70; RESP 16; RESP 20; TEMP 36.6; TEMP 36.8; O2SAT 97
[2024-07-08] MEDS: HYDROCODONE/ACETAMINOPHEN 5/325MG TABLET PO PRN (19:36)
[2024-07-08 20:31] VITALS: BP 112/81; PULSE 68; RESP 20; TEMP 36.8; O2SAT 98
[2024-07-09] VITALS: BP 119/70; PULSE 77; RESP 20; TEMP 37; O2SAT 97
[2024-07-09 04:00] VITALS: BP 108/77; PULSE 54; RESP 20; TEMP 36.7; O2SAT 97
[2024-07-09 08:00] VITALS: BP 124/90; PULSE 68; RESP 20; TEMP 36.7; O2SAT 99
[2024-07-09 14:58] VITALS: BP 109/72; PULSE 60; TEMP 97; O2SAT 95
== END 2024-07-09 17:22 | disposition home or self-care (01) | DRG 469 ==
LOC: ER 05:22 → 8WST 08:03 → EDBEDREQ 08:04 → EDBEDREQTM 08:04
PROVIDERS: ADMIT Internal Medicine; ATTEND Internal Medicine
DX: N17.9 Acute kidney failure, unspecified (principal); I67.1 Cerebral aneurysm, nonruptured; E87.0 Hyperosmolality and hypernatremia; I50.22 Chronic systolic (congestive) heart failure; I13.0 Hypertensive heart and chronic kidney disease with heart failure and stage 1 through stage 4 chronic kidney disease, or unspecified chronic kidney disease; N18.4 Chronic kidney disease, stage 4 (severe); F14.10 Cocaine abuse, uncomplicated; J44.89 Other specified chronic obstructive pulmonary disease; N26.1 Atrophy of kidney (terminal); I42.7 Cardiomyopathy due to drug and external agent; R79.89 Other specified abnormal findings of blood chemistry; N20.0 Calculus of kidney; Z59.00 Homelessness unspecified; Z91.148 Patient's other noncompliance with medication regimen for other reason
CPT/HCPCS: 36415; 71045; 80048; 83880; 84484; 85025; 93005; 94640; 99291; A4606; J0360; J1650; J1940; J2470; J2919

== ENCOUNTER 2024-07-23 01:42 | Emergency (ER) | payer MEDICAID ==
[~2024-07-23] VITALS: Ht 167.6 cm; Wt 59.0 kg
[2024-07-23 01:48] VITALS: O2SAT 98
[2024-07-23] MEDS ORDERED: ENALAPRIL 2.5MG/2ML VIAL 2ML IV ONE (03:00)
[2024-07-23] MEDS: ACETAMINOPHEN 325MG TABLET PO ONE (03:17)
[2024-07-23] MEDS: NITROGLYCERIN 0.4MG TABLET SL SL ONE (03:17)
[2024-07-23] MEDS: ENALAPRIL 1.25MG/ML VIAL 1ML IV NR (03:28)
[2024-07-23] MEDS: FUROSEMIDE 40MG/4ML VIAL IVP ONE (03:31)
[2024-07-23 03:45] LABS: BASOPHILS % 0.9 % (0.0-2.0); EOSINOPHILS % 1.2 % (0.0-5.0); HEMATOCRIT. 37.9 % (36.0-48.0); HEMOGLOBIN. 12.4 g/dL (12.0-16.0); LYMPHOCYTES % 19.6 % (20.0-50.0); MEAN CORPUSCULAR HEMOGLOBIN 31.2 pg (28.0-32.0); MEAN CORPUSCULAR HGB CONC 32.8 g/dL (31.0-37.0); MEAN CORPUSCULAR VOLUME 95.2 fL (81.0-99.0); MEAN PLATELET VOLUME 9.1 fl (7.4-10.4); MONOCYTES % 7.5 % (2.0-8.0); NEUTROPHILS % 70.8 % (40.0-76.0); PLATELET 144 x1000/uL (130-400); RED BLOOD CELL COUNT 3.98 mill/uL (4.2-5.4); WHITE BLOOD COUNT 7.1 x1000/uL (4.5-11.0)
[2024-07-23 04:02] LABS: CHLORIDE 113 mEq/L (98-107); POTASSIUM 3.6 mEq/L (3.5-5.1); SODIUM 144 mEq/L (136-145)
[2024-07-23 04:03] LABS: CARBON DIOXIDE 26 mEq/L (21-32)
[2024-07-23 04:04] LABS: CALCIUM 9.2 mg/dL (8.7-10.4)
[2024-07-23 04:08] LABS: CREATININE 1.7 mg/dL (0.6-1.0); GLUCOSE 123 mg/dL (70-105); UREA NITROGEN BLOOD 30 mg/dL (9-23)
[2024-07-23 04:49] LABS: TROPONIN I HIGH SENSITIVITY 111 ng/L (3.0-34)
[2024-07-23] MEDS: LABETALOL 5MG/ML 4ML INJ IV ONE (05:04)
[2024-07-23] MEDS: ASPIRIN 81MG TABLET PO ONE (05:50)
[2024-07-23 07:55] VITALS: BP 156/113; PULSE 74; RESP 20; TEMP 36.6; O2SAT 98
== END 2024-07-23 08:11 | disposition short-term general hospital (02) ==
LOC: ER 01:42
DX: I11.0 Hypertensive heart disease with heart failure (principal); I50.9 Heart failure, unspecified; I21.4 Non-ST elevation (NSTEMI) myocardial infarction; E11.9 Type 2 diabetes mellitus without complications; F17.200 Nicotine dependence, unspecified, uncomplicated; I16.0 Hypertensive urgency; I25.10 Atherosclerotic heart disease of native coronary artery without angina pectoris; J44.9 Chronic obstructive pulmonary disease, unspecified; Z79.899 Other long term (current) drug therapy; Z79.82 Long term (current) use of aspirin
CPT/HCPCS: 80048; 83880; 83735; 85025; 84484; 36415; 71045; 96374; 96375; 99291; J3490 ×2; J1940; Z7610

== ENCOUNTER 2024-08-16 09:52 | Emergency (ER) | payer MEDICAID ==
[~2024-08-16] VITALS: Ht 165.1 cm; Wt 65.0 kg
[~2024-08-16 09:52] MED LIST changes: +LISI20TA31 PO; +SPIR25TA6 PO
[2024-08-16 09:54] VITALS: O2SAT 100
[2024-08-16] MEDS ORDERED: METHYLPREDNISOLONE SOD SUCC 125MG/2ML (ACT-O-VIAL) IV STA (10:02)
[2024-08-16 10:33] LABS: BASOPHILS % 1.1 % (0.0-2.0); EOSINOPHILS % 2.3 % (0.0-5.0); HEMATOCRIT. 38.7 % (36.0-48.0); HEMOGLOBIN. 12.5 g/dL (12.0-16.0); LYMPHOCYTES % 28.6 % (20.0-50.0); MEAN CORPUSCULAR HEMOGLOBIN 31.2 pg (28.0-32.0); MEAN CORPUSCULAR HGB CONC 32.2 g/dL (31.0-37.0); MEAN CORPUSCULAR VOLUME 96.9 fL (81.0-99.0); MEAN PLATELET VOLUME 9.3 fl (7.4-10.4); MONOCYTES % 11.1 % (2.0-8.0); NEUTROPHILS % 56.9 % (40.0-76.0); PLATELET 163 x1000/uL (130-400); RED CELL DISTRIBUTION WIDTH 15.3 % (11.6-14.6); WHITE BLOOD COUNT 5.1 x1000/uL (4.5-11.0)
[2024-08-16 10:40] LABS: CARBON DIOXIDE 23 mEq/L (21-32); CHLORIDE 113 mEq/L (98-107); POTASSIUM 3.9 mEq/L (3.5-5.1); SODIUM 146 mEq/L (136-145)
[2024-08-16 10:41] LABS: CALCIUM 8.5 mg/dL (8.7-10.4)
[2024-08-16 10:46] LABS: GLUCOSE 90 mg/dL (70-105); UREA NITROGEN BLOOD 27 mg/dL (9-23)
[2024-08-16 10:58] LABS: CREATININE 1.7 mg/dL (0.6-1.0)
[2024-08-16 10:59] LABS: TROPONIN I HIGH SENSITIVITY 486 ng/L (3.0-34)
[2024-08-16 11:02] VITALS: PULSE 60; RESP 20
[2024-08-16] MEDS: ALBUTEROL (0.083%) 2.5MG/3ML NEB HHN STA (11:04)
[2024-08-16] MEDS: IPRATROPIUM BROMIDE (0.02%) 0.5MG/2.5ML NEB HHN STA (11:04)
[2024-08-16] MEDS: METHYLPREDNISOLONE SOD SUCC 125MG/2ML (ACT-O-VIAL) IV NR (13:03)
[2024-08-16] MEDS: HYDRALAZINE 20MG/ML VIAL IV ONE (14:20)
[2024-08-16 15:16] VITALS: BP 161/126; PULSE 80; RESP 20; TEMP 36.9; O2SAT 99
== END 2024-08-16 15:20 | disposition short-term general hospital (02) ==
LOC: ER 09:52
DX: J44.1 Chronic obstructive pulmonary disease with (acute) exacerbation (principal); I21.4 Non-ST elevation (NSTEMI) myocardial infarction; I11.0 Hypertensive heart disease with heart failure; E11.9 Type 2 diabetes mellitus without complications; Z79.899 Other long term (current) drug therapy
CPT/HCPCS: 80048; 83880; 85025; 84484; 36415; 71045; 93005; 94644; 96374; 96375; 99291; J0360; J2919; Z7610 ×4; 94640

== ENCOUNTER 2024-09-03 05:22 | Inpatient (IN) | payer MEDICAID ==
[~2024-09-03] VITALS: Ht 167.6 cm; Wt 48.7 kg
[2024-09-03 05:29] VITALS: O2SAT 100
[2024-09-03] MEDS ORDERED: ENALAPRIL 2.5MG/2ML VIAL 2ML IV ONE (07:15)
[2024-09-03 07:27] LABS: EOSINOPHILS % 1.9 % (0.0-5.0); HEMATOCRIT. 41.3 % (36.0-48.0); HEMOGLOBIN. 13.5 g/dL (12.0-16.0); LYMPHOCYTES % 23.1 % (20.0-50.0); MEAN CORPUSCULAR HGB CONC 32.8 g/dL (31.0-37.0); MEAN CORPUSCULAR VOLUME 97.5 fL (81.0-99.0); MONOCYTES % 8.1 % (2.0-8.0); NEUTROPHILS % 65.9 % (40.0-76.0); PLATELET 191 x1000/uL (130-400); RED BLOOD CELL COUNT 4.23 mill/uL (4.2-5.4); RED CELL DISTRIBUTION WIDTH 15.1 % (11.6-14.6); WHITE BLOOD COUNT 6.2 x1000/uL (4.5-11.0)
[2024-09-03] MEDS: ENALAPRIL 1.25MG/ML VIAL 1ML IV SCH (07:28)
[2024-09-03] MEDS: FUROSEMIDE 40MG/4ML VIAL IVP ONE (07:28)
[2024-09-03 07:31] LABS: POTASSIUM 4.7 mEq/L (3.5-5.1)
[2024-09-03 07:33] LABS: CALCIUM 8.6 mg/dL (8.7-10.4)
[2024-09-03] MEDS: HYDRALAZINE 20MG/ML VIAL IV ONE (09:44)
[2024-09-03] MEDS ORDERED: MAGNESIUM/ALUMINUM HYDROXIDE/SIMETHICONE 30ML UDC PO PRN (10:00)
[2024-09-03] MEDS ORDERED: ONDANSETRON HCL 4MG/2ML INJ IV PRN (10:00)
[2024-09-03] MEDS ORDERED: ZOLPIDEM TARTRATE 5MG TABLET PO PRN (10:00)
[2024-09-03] MEDS ORDERED: NALOXONE HCL 0.4MG/ML VIAL IV PRN (10:00)
[2024-09-03] MEDS: ENOXAPARIN 30MG/0.3ML SYR SUBCUT SCH (10:00)
[2024-09-03] MEDS ORDERED: HYDRALAZINE 20MG/ML VIAL IV PRN (10:00)
[2024-09-03] MEDS ORDERED: CLONIDINE 0.1MG TABLET PO PRN (10:00)
[2024-09-03] MEDS ORDERED: HYDROCODONE/ACETAMINOPHEN 5/325MG TABLET PO PRN (10:00)
[2024-09-03 10:45] VITALS: BP 141/95; PULSE 71; RESP 16; TEMP 36.4
[2024-09-03 12:00] VITALS: BP 141/91; PULSE 71; RESP 18; TEMP 36.4; O2SAT 98
[2024-09-03 12:43] VITALS: PULSE 81; RESP 18
[2024-09-03] MEDS: IPRATROPIUM/ALBUTEROL 0.5-3(2.5)MG/3ML NEB NEB SCH (12:43)
[2024-09-03] MEDS: ACETAMINOPHEN 325MG TABLET PO PRN (12:57)
[2024-09-03] MEDS: HYDRALAZINE HCL 50MG TABLET PO SCH (14:19)
[2024-09-03 16:41] LABS: TROPONIN I HIGH SENSITIVITY 118 ng/L (3.0-34)
[2024-09-03 20:00] VITALS: BP 155/109; PULSE 70; RESP 18; TEMP 36.4; O2SAT 100
[2024-09-03] MEDS: LISINOPRIL 20MG TABLET PO SCH (21:25)
[2024-09-03] MEDS: CARVEDILOL 12.5MG TABLET PO SCH (21:25)
[2024-09-03] MEDS: ATORVASTATIN CALCIUM 40MG TABLET PO SCH (21:28)
[2024-09-04] VITALS: BP 125/82; PULSE 68; RESP 20; TEMP 36.4; O2SAT 96
[2024-09-04] LABS: TROPONIN I HIGH SENSITIVITY 121 ng/L (3.0-34)
[2024-09-04 04:00] VITALS: BP 136/103; PULSE 69; RESP 18; TEMP 36.4; O2SAT 96
[2024-09-04 06:22] LABS: POTASSIUM 4.3 mEq/L (3.5-5.1)
[2024-09-04 06:23] LABS: CALCIUM 7.7 mg/dL (8.7-10.4)
[2024-09-04 06:28] LABS: CREATININE 1.6 mg/dL (0.6-1.0)
[2024-09-04 06:36] LABS: BASOPHILS % 1.4 % (0.0-2.0); EOSINOPHILS % 3.1 % (0.0-5.0); HEMATOCRIT. 39.7 % (36.0-48.0); MEAN CORPUSCULAR HEMOGLOBIN 31.5 pg (28.0-32.0); MEAN CORPUSCULAR HGB CONC 32.8 g/dL (31.0-37.0); MEAN CORPUSCULAR VOLUME 95.9 fL (81.0-99.0); MEAN PLATELET VOLUME 9.2 fl (7.4-10.4); MONOCYTES % 8.7 % (2.0-8.0); NEUTROPHILS % 64.8 % (40.0-76.0); PLATELET 189 x1000/uL (130-400); RED BLOOD CELL COUNT 4.14 mill/uL (4.2-5.4); WHITE BLOOD COUNT 4.5 x1000/uL (4.5-11.0)
[2024-09-04 08:00] VITALS: BP 132/90; PULSE 62; RESP 16; TEMP 36.4; O2SAT 100
[2024-09-04] MEDS: PANTOPRAZOLE SODIUM 40 MG/VIAL IV SCH (09:00)
[2024-09-04] MEDS: FUROSEMIDE 40MG/4ML VIAL IVP SCH ×2 (09:00→17:15)
[2024-09-04] MEDS: ASPIRIN 81MG TABLET PO SCH (09:04)
[2024-09-04] MEDS: NIFEDIPINE XL 60MG TAB PO SCH (09:06)
[2024-09-04] MEDS: SPIRONOLACTONE 25MG TABLET PO SCH (09:06)
[2024-09-04 20:00] VITALS: BP 111/74; PULSE 64; RESP 18; TEMP 36.9; O2SAT 98
[2024-09-05] VITALS: BP 115/71; PULSE 56; RESP 18; TEMP 37.1; O2SAT 98
[2024-09-05] MEDS: FUROSEMIDE 40MG TABLET PO SCH (06:35)
[2024-09-05 08:00] VITALS: BP 123/82; PULSE 58; RESP 17; TEMP 36.4; O2SAT 98
[2024-09-05 09:02] VITALS: PULSE 54; RESP 18
== END 2024-09-05 14:03 | disposition home or self-care (01) | DRG 280 ==
LOC: ER 05:22 → 6WST 08:44 → ENRESERV 09:58
PROVIDERS: ADMIT Internal Medicine; ATTEND Internal Medicine
DX: I13.0 Hypertensive heart and chronic kidney disease with heart failure and stage 1 through stage 4 chronic kidney disease, or unspecified chronic kidney disease (principal); I50.23 Acute on chronic systolic (congestive) heart failure; I21.A1 Myocardial infarction type 2; J96.01 Acute respiratory failure with hypoxia; N17.9 Acute kidney failure, unspecified; J44.89 Other specified chronic obstructive pulmonary disease; E11.22 Type 2 diabetes mellitus with diabetic chronic kidney disease; I16.0 Hypertensive urgency; N18.9 Chronic kidney disease, unspecified; F19.10 Other psychoactive substance abuse, uncomplicated; I25.10 Atherosclerotic heart disease of native coronary artery without angina pectoris; F17.200 Nicotine dependence, unspecified, uncomplicated; Z91.148 Patient's other noncompliance with medication regimen for other reason
CPT/HCPCS: 36415; 71045; 80048; 83880; 84484; 85025; 93005; 93880; 94070; 94640; 94664; 96374; 96375; 98960; 99291; J0360; J1650; J1940; J2470; J3490

== ENCOUNTER 2024-10-06 07:06 | Inpatient (IN) | payer MEDICAID ==
[~2024-10-06] VITALS: Ht 162.6 cm; Wt 50.9 kg
[2024-10-06 07:15] VITALS: O2SAT 100
[2024-10-06 08:28] LABS: BASOPHILS % 1.4 % (0.0-2.0); EOSINOPHILS % 4.1 % (0.0-5.0); HEMATOCRIT. 42.0 % (36.0-48.0); HEMOGLOBIN. 13.4 g/dL (12.0-16.0); LYMPHOCYTES % 34.2 % (20.0-50.0); MEAN PLATELET VOLUME 8.7 fl (7.4-10.4); MONOCYTES % 9.7 % (2.0-8.0); NEUTROPHILS % 50.6 % (40.0-76.0); PLATELET 179 x1000/uL (130-400); RED BLOOD CELL COUNT 4.27 mill/uL (4.2-5.4); RED CELL DISTRIBUTION WIDTH 14.7 % (11.6-14.6)
[2024-10-06 08:44] LABS: CREATININE 1.7 mg/dL (0.6-1.0)
[2024-10-06 08:45] LABS: UREA NITROGEN BLOOD 34 mg/dL (9-23)
[2024-10-06 08:49] LABS: TROPONIN I HIGH SENSITIVITY 119 ng/L (3.0-34)
[2024-10-06 09:50] VITALS: BP 160/114; PULSE 75; RESP 20; TEMP 36.3; O2SAT 100
[2024-10-06 11:30] VITALS: BP 161/114; PULSE 75; RESP 20; TEMP 36.4
[2024-10-06] MEDS ORDERED: IPRATROPIUM/ALBUTEROL 0.5-3(2.5)MG/3ML NEB HHN PRN (11:30)
[2024-10-06] MEDS ORDERED: CLONIDINE 0.1MG TABLET PO PRN (11:30)
[2024-10-06] MEDS ORDERED: ACETAMINOPHEN 325MG TABLET PO PRN ×2 (11:30)
[2024-10-06] MEDS ORDERED: DOCUSATE SODIUM 100MG CAPSULE PO PRN (11:30)
[2024-10-06] MEDS: FUROSEMIDE 40MG/4ML VIAL IVP SCH (11:45)
[2024-10-06 12:00] VITALS: BP 155/100; PULSE 80; RESP 20; TEMP 36.7; O2SAT 100
[2024-10-06] MEDS: IPRATROPIUM/ALBUTEROL 0.5-3(2.5)MG/3ML NEB HHN SCH (15:22)
[2024-10-06] MEDS: NIFEDIPINE XL 60MG TAB PO SCH (15:39)
[2024-10-06] MEDS: SPIRONOLACTONE 25MG TABLET PO SCH (15:39)
[2024-10-06] MEDS: ASPIRIN 81MG TABLET PO SCH (15:40)
[2024-10-06 15:53] VITALS: BP 150/108; PULSE 73; RESP 18; TEMP 36.3; O2SAT 99
[2024-10-06 17:07] LABS: TROPONIN I HIGH SENSITIVITY 97 ng/L (3.0-34)
[2024-10-06] MEDS: ENOXAPARIN 30MG/0.3ML SYR SUBCUT SCH (18:00)
[2024-10-06] MEDS: ONDANSETRON HCL 4MG/2ML INJ IV PRN (18:22)
[2024-10-06 20:00] VITALS: BP 151/99; PULSE 63; RESP 20; TEMP 36.4; O2SAT 90
[2024-10-06] MEDS: ATORVASTATIN CALCIUM 40MG TABLET PO SCH (21:34)
[2024-10-06] MEDS: HYDRALAZINE HCL 50MG TABLET PO SCH (21:34)
[2024-10-07] VITALS (8 sets, daily range): BP systolic 115–132; BP diastolic 78–94; PULSE 56–66; RESP 16–19; TEMP 35.8–36.8; O2SAT 94–100
[2024-10-07 02:00] LABS: *AMPHETAMINES SCREEN URINE NEGATIVE (NEGATIVE); *BARBITURATES SCREEN URINE NEGATIVE (NEGATIVE); *BENZODIAZEPINES SCREEN URINE NEGATIVE (NEGATIVE); *COCAINE SCREEN URINE PRESUMPTIVE POSITIVE (NEGATIVE); CANNABINOID URINE SCREEN NEGATIVE (NEGATIVE); ECSTASY MDMA SCREEN URINE NEGATIVE (NEGATIVE); METHADONE URINE SCREEN NEGATIVE (NEGATIVE); OPIATES URINE SCREEN NEGATIVE (NEGATIVE); PHENCYCLIDINE URINE SCREEN NEGATIVE (NEGATIVE)
[2024-10-07] MEDS: ISOSORBIDE MONONITRATE 60MG TABLET SR 24HR PO SCH (09:00)
[2024-10-07] MEDS: FUROSEMIDE 20MG/2ML VIAL IVP NR (21:03)
[2024-10-08 04:00] VITALS: BP 131/91; PULSE 58; RESP 18; TEMP 36.5; O2SAT 98
[2024-10-08 08:00] VITALS: BP 136/87; PULSE 58; RESP 18; TEMP 36.1; O2SAT 94
[2024-10-08 09:21] VITALS: PULSE 58
[2024-10-08] MEDS: ISOSORBIDE MONONITRATE 30MG TABLET SR 24HR PO SCH (09:21)
== END 2024-10-08 14:16 | disposition left against medical advice (07) | DRG 917 ==
LOC: ER 07:31 → 7WST 08:33 → ENRESERV 08:51
PROVIDERS: ADMIT Internal Medicine; ATTEND Internal Medicine
DX: T40.5X1A Poisoning by cocaine, accidental (unintentional), initial encounter (principal); I21.A1 Myocardial infarction type 2; I50.43 Acute on chronic combined systolic (congestive) and diastolic (congestive) heart failure; J96.01 Acute respiratory failure with hypoxia; J68.0 Bronchitis and pneumonitis due to chemicals, gases, fumes and vapors; I13.0 Hypertensive heart and chronic kidney disease with heart failure and stage 1 through stage 4 chronic kidney disease, or unspecified chronic kidney disease; Z53.29 Procedure and treatment not carried out because of patient's decision for other reasons; E11.22 Type 2 diabetes mellitus with diabetic chronic kidney disease; N18.9 Chronic kidney disease, unspecified; F14.10 Cocaine abuse, uncomplicated; I25.10 Atherosclerotic heart disease of native coronary artery without angina pectoris; Z79.899 Other long term (current) drug therapy
CPT/HCPCS: 36415; 71045; 80048; 80305; 83880; 84484; 85025; 93005; 94070; 99291; J1650; J1940; J2405

== ENCOUNTER 2024-11-05 08:09 | Inpatient (IN) | payer MEDICAID ==
[~2024-11-05] VITALS: Ht 167.6 cm; Wt 57.4 kg
[~2024-11-05 08:09] MED LIST changes: +AMLO5TAB88 MT; +FERR-63 PO; +IBUP-2029 PO; -NIFE-32 PO; +POTA-204 PO; -SPIR25TA6 PO; +TRAZ-251 MT
[2024-11-05 08:11] VITALS: O2SAT 100
[2024-11-05 08:53] LABS: BASOPHILS % 0.9 % (0.0-2.0); EOSINOPHILS % 2.4 % (0.0-5.0); HEMATOCRIT. 40.9 % (36.0-48.0); HEMOGLOBIN. 13.3 g/dL (12.0-16.0); LYMPHOCYTES % 26.3 % (20.0-50.0); MEAN PLATELET VOLUME 8.6 fl (7.4-10.4); MONOCYTES % 9.5 % (2.0-8.0); NEUTROPHILS % 60.9 % (40.0-76.0); PLATELET 198 x1000/uL (130-400); RED BLOOD CELL COUNT 4.20 mill/uL (4.2-5.4); RED CELL DISTRIBUTION WIDTH 14.9 % (11.6-14.6)
[2024-11-05 09:30] LABS: CREATININE 1.6 mg/dL (0.6-1.0)
[2024-11-05 09:31] LABS: UREA NITROGEN BLOOD 33 mg/dL (9-23)
[2024-11-05 09:45] LABS: TROPONIN I HIGH SENSITIVITY 229 ng/L (3.0-34)
[2024-11-05] MEDS ORDERED: IPRATROPIUM/ALBUTEROL 0.5-3(2.5)MG/3ML NEB NEB SCH (11:00)
[2024-11-05] MEDS ORDERED: ENOXAPARIN 40MG/0.4ML SYR SUBCUT SCH (11:00)
[2024-11-05] MEDS ORDERED: ONDANSETRON HCL 4MG/2ML INJ IV PRN (11:00)
[2024-11-05] MEDS ORDERED: MAGNESIUM/ALUMINUM HYDROXIDE/SIMETHICONE 30ML UDC PO PRN (11:00)
[2024-11-05] MEDS ORDERED: CLONIDINE 0.1MG TABLET PO PRN (11:00)
[2024-11-05] MEDS ORDERED: NALOXONE HCL 0.4MG/ML VIAL IV PRN (11:15)
[2024-11-05] MEDS: ACETAMINOPHEN 325MG TABLET PO PRN (11:36)
[2024-11-05] MEDS: ENOXAPARIN 30MG/0.3ML SYR SUBCUT SCH (11:41)
[2024-11-05 12:00] VITALS: BP 148/108; PULSE 79; RESP 19; TEMP 37.1; O2SAT 96
[2024-11-05] MEDS: METHYLPREDNISOLONE SOD SUCC 40MG/ML (ACT-O-VIAL) IV SCH (12:07)
[2024-11-05] MEDS: FUROSEMIDE 40MG/4ML VIAL IVP SCH (12:07)
[2024-11-05] MEDS: PANTOPRAZOLE SODIUM 40 MG/VIAL IV SCH (12:07)
[2024-11-05] MEDS ORDERED: IOHEXOL-350 100 ML BOTTLE ONE (13:35)
[2024-11-05] MEDS: HYDRALAZINE HCL 50MG TABLET PO SCH (13:57)
[2024-11-05 15:55] VITALS: BP 139/98; PULSE 80; RESP 16; TEMP 35.584
[2024-11-05 16:00] VITALS: BP 141/100; PULSE 77; RESP 19; TEMP 36.9; O2SAT 100
[2024-11-05 18:25] LABS: TROPONIN I HIGH SENSITIVITY 126 ng/L (3.0-34)
[2024-11-05 20:00] VITALS: BP 138/97; PULSE 72; RESP 18; TEMP 36.9; O2SAT 97
[2024-11-05] MEDS: ATORVASTATIN CALCIUM 40MG TABLET PO SCH (20:40)
[2024-11-05] MEDS: CARVEDILOL 12.5MG TABLET PO SCH (20:41)
[2024-11-05] MEDS: TRAZODONE HCL 50MG TABLET PO SCH (20:41)
[2024-11-05] MEDS: LISINOPRIL 20MG TABLET PO SCH (20:42)
[2024-11-05] MEDS ORDERED: ZOLPIDEM TARTRATE 5MG TABLET PO PRN (21:00)
[2024-11-06] VITALS: BP 130/90; PULSE 63; RESP 17; TEMP 36.3; O2SAT 97
[2024-11-06 04:00] VITALS: BP 144/92; PULSE 69; RESP 20; TEMP 36.3; O2SAT 95
[2024-11-06 08:00] VITALS: BP 125/83; PULSE 63; RESP 16; TEMP 36.7; O2SAT 97
[2024-11-06] MEDS ORDERED: POTASSIUM CHLORIDE 20MEQ TABLET SR PO SCH (09:00)
[2024-11-06] MEDS: ASPIRIN 81MG TABLET PO SCH (09:01)
[2024-11-06] MEDS: HYDROCODONE/ACETAMINOPHEN 5/325MG TABLET PO PRN (10:52)
[2024-11-06 11:10] LABS: BASOPHILS % 0.2 % (0.0-2.0); EOSINOPHILS % 0.0 % (0.0-5.0); HEMATOCRIT. 39.4 % (36.0-48.0); HEMOGLOBIN. 12.8 g/dL (12.0-16.0); LYMPHOCYTES % 8.2 % (20.0-50.0); MEAN PLATELET VOLUME 9.0 fl (7.4-10.4); MONOCYTES % 5.8 % (2.0-8.0); NEUTROPHILS % 85.8 % (40.0-76.0); PLATELET 191 x1000/uL (130-400); RED BLOOD CELL COUNT 4.08 mill/uL (4.2-5.4); RED CELL DISTRIBUTION WIDTH 14.4 % (11.6-14.6)
[2024-11-06 11:15] LABS: CREATININE 1.7 mg/dL (0.6-1.0); UREA NITROGEN BLOOD 40.0 mg/dL (9-23)
[2024-11-06 12:00] VITALS: BP 122/81; PULSE 96; RESP 20; TEMP 36.3; O2SAT 98
[2024-11-06] MEDS ORDERED: METH4TAB95 MT (12:38)
[2024-11-06 16:00] VITALS: BP 129/85; PULSE 71; RESP 16; TEMP 36.3; O2SAT 98
[2024-11-06 20:00] VITALS: BP 128/71; PULSE 72; RESP 18; TEMP 36.4; O2SAT 97
[2024-11-07] VITALS: BP 127/86; PULSE 66; RESP 18; TEMP 36.5; O2SAT 98
[2024-11-07 04:00] VITALS: BP 139/95; PULSE 58; RESP 18; TEMP 36.3; O2SAT 98
[2024-11-07 07:04] LABS: HEMATOCRIT. 39.3 % (36.0-48.0); HEMOGLOBIN. 12.8 g/dL (12.0-16.0); MEAN PLATELET VOLUME 8.8 fl (7.4-10.4); PLATELET 199 x1000/uL (130-400); RED BLOOD CELL COUNT 4.02 mill/uL (4.2-5.4); RED CELL DISTRIBUTION WIDTH 14.9 % (11.6-14.6)
[2024-11-07 07:16] LABS: CREATININE 1.5 mg/dL (0.6-1.0); UREA NITROGEN BLOOD 39.0 mg/dL (9-23)
[2024-11-07 08:00] VITALS: BP 120/88; PULSE 66; RESP 18; TEMP 37; O2SAT 95
[2024-11-07 09:46] LABS: LYMPHOCYTES % MANUAL 6.0 % (20.0-60.0); MONOCYTES % MANUAL 2.0 % (2.0-8.0); NEUTROPHILS % MANUAL 92.0 % (45.0-75.0); PLATELET ESTIMATE NORMAL
[2024-11-07 12:00] VITALS: BP 114/68; PULSE 62; RESP 18; TEMP 36.6; O2SAT 99
[2024-11-08] MEDS ORDERED: APIX5TAB MT (10:24)
== END 2024-11-07 15:00 | disposition home or self-care (01) | DRG 291 ==
LOC: ER 08:09 → 5WST 09:26 → EDBEDREQ 09:40 → EDBEDREQTM 09:40 → ENRESERV 10:11
PROVIDERS: ADMIT Internal Medicine; ATTEND Internal Medicine
DX: I13.0 Hypertensive heart and chronic kidney disease with heart failure and stage 1 through stage 4 chronic kidney disease, or unspecified chronic kidney disease (principal); I26.99 Other pulmonary embolism without acute cor pulmonale; I50.21 Acute systolic (congestive) heart failure; R79.89 Other specified abnormal findings of blood chemistry; J44.9 Chronic obstructive pulmonary disease, unspecified; N18.9 Chronic kidney disease, unspecified; Z79.899 Other long term (current) drug therapy
CPT/HCPCS: 36415; 71045; 71275; 80048; 84484; 85025; 93005; 93970; 97161; 99291; A4606; J1650; J1938; J2470; J2919; Q9967

== ENCOUNTER 2024-11-16 00:49 | Inpatient (IN) | payer MEDICAID ==
[2024-11-16] VITALS (7 sets, daily range): BP systolic 124–144; BP diastolic 84–103; PULSE 58–72; RESP 18–20; TEMP 36–37; O2SAT 96–100
[~2024-11-16] VITALS: Ht 167.6 cm; Wt 50.3 kg
[~2024-11-16 00:49] MED LIST changes: +APIX5TAB MT; +METH4TAB95 MT
[2024-11-16] MEDS: ONDANSETRON HCL 4MG/2ML INJ IV ONE (03:51)
[2024-11-16] MEDS: MORPHINE SULFATE 4 MG/ML INJ (FOR IV/IM USE) IV ONE (03:52)
[2024-11-16 03:59] LABS: BASOPHILS % 1.0 % (0.0-2.0); EOSINOPHILS % 2.9 % (0.0-5.0); HEMATOCRIT. 42.0 % (36.0-48.0); HEMOGLOBIN. 13.5 g/dL (12.0-16.0); LYMPHOCYTES % 13.2 % (20.0-50.0); MEAN PLATELET VOLUME 8.4 fl (7.4-10.4); MONOCYTES % 14.8 % (2.0-8.0); NEUTROPHILS % 68.1 % (40.0-76.0); PLATELET 191 x1000/uL (130-400); RED BLOOD CELL COUNT 4.34 mill/uL (4.2-5.4); RED CELL DISTRIBUTION WIDTH 14.9 % (11.6-14.6)
[2024-11-16 04:13] LABS: CREATININE 1.5 mg/dL (0.6-1.0); UREA NITROGEN BLOOD 37.0 mg/dL (9-23)
[2024-11-16] MEDS ORDERED: ONDANSETRON HCL 4MG/2ML INJ IV PRN (10:00)
[2024-11-16] MEDS: FUROSEMIDE 40MG/4ML VIAL IVP SCH (11:15)
[2024-11-16] MEDS: LOSARTAN 50 MG TABLET PO SCH (16:30)
[2024-11-16] MEDS: ACETAMINOPHEN 325MG TABLET PO PRN (16:37)
[2024-11-16] MEDS ORDERED: NALOXONE HCL 0.4MG/ML VIAL IV PRN (17:45)
[2024-11-16] MEDS ORDERED: ENOXAPARIN 40MG/0.4ML SYR SUBCUT SCH (18:00)
[2024-11-16] MEDS: IPRATROPIUM/ALBUTEROL 0.5-3(2.5)MG/3ML NEB HHN SCH (20:48)
[2024-11-16] MEDS: HYDROCODONE/ACETAMINOPHEN 5/325MG TABLET PO PRN (21:41)
[2024-11-16] MEDS: APIXABAN 5 MG TABLET PO SCH (21:41)
[2024-11-17] VITALS (7 sets, daily range): BP systolic 119–148; BP diastolic 66–92; PULSE 50–69; RESP 17–20; TEMP 35.6–36.7; O2SAT 96–100
[2024-11-18] VITALS: BP 128/67; PULSE 65; RESP 17; TEMP 36.6; O2SAT 96
[2024-11-18 04:00] VITALS: BP 119/64; PULSE 62; RESP 19; TEMP 36.8; O2SAT 97
[2024-11-18 08:00] VITALS: BP_SYST 115; BP_SYST 140; BP_DIAS 57; BP_DIAS 95; PULSE 50; PULSE 61; RESP 17; RESP 22; TEMP 36.1; TEMP 36.3; O2SAT 97; O2SAT 98
[2024-11-18 10:20] VITALS: BP 137/91; PULSE 65; RESP 20; TEMP 35.9; O2SAT 97
[2024-11-18 10:35] VITALS: BP 137/91; PULSE 65; RESP 20; TEMP 96.7
[2024-11-18] MEDS ORDERED: APIX5TAB MT (10:39)
[2024-11-18] MEDS ORDERED: FURO-151 MT (10:39)
[2024-11-18] MEDS ORDERED: LOSA50TA41 MT (10:39)
== END 2024-11-18 10:45 | disposition home or self-care (01) | DRG 291 ==
LOC: ER 00:49 → 7WST 05:24 → EDBEDREQTM 05:27 → EDBEDREQ 05:27 → ENRESERV 06:12 → 7WST 11-17 19:47
PROVIDERS: ADMIT Internal Medicine; ATTEND Internal Medicine
DX: I13.0 Hypertensive heart and chronic kidney disease with heart failure and stage 1 through stage 4 chronic kidney disease, or unspecified chronic kidney disease (principal); I26.99 Other pulmonary embolism without acute cor pulmonale; I50.23 Acute on chronic systolic (congestive) heart failure; N17.9 Acute kidney failure, unspecified; N18.9 Chronic kidney disease, unspecified; F14.90 Cocaine use, unspecified, uncomplicated; F17.210 Nicotine dependence, cigarettes, uncomplicated; J44.9 Chronic obstructive pulmonary disease, unspecified; Z79.01 Long term (current) use of anticoagulants; Z79.899 Other long term (current) drug therapy; Z86.711 Personal history of pulmonary embolism
CPT/HCPCS: 36415; 71045; 80048; 83880; 85025; 93005; 94640; 99285; A4606; J1938; J2270; J2405

== ENCOUNTER 2024-11-20 00:38 | Emergency (ER) | payer MEDICAID ==
[~2024-11-20] VITALS: Ht 172.7 cm; Wt 61.0 kg
[~2024-11-20 00:38] MED LIST changes: +IBUP-1455 PO; -IBUP-2029 PO; -LISI20TA31 PO; +LOSA50TA41 MT
[2024-11-20 00:41] VITALS: TEMP 36.4; O2SAT 100
[2024-11-20] MEDS: KETOROLAC 15MG/ML VIAL IM ONE (01:52)
[2024-11-20 02:10] LABS: BASOPHILS % 0.9 % (0.0-2.0); EOSINOPHILS % 1.6 % (0.0-5.0); HEMATOCRIT. 42.1 % (36.0-48.0); HEMOGLOBIN. 13.7 g/dL (12.0-16.0); LYMPHOCYTES % 16.0 % (20.0-50.0); MEAN PLATELET VOLUME 8.7 fl (7.4-10.4); MONOCYTES % 7.1 % (2.0-8.0); NEUTROPHILS % 74.4 % (40.0-76.0); PLATELET 185 x1000/uL (130-400); RED BLOOD CELL COUNT 4.35 mill/uL (4.2-5.4); RED CELL DISTRIBUTION WIDTH 14.9 % (11.6-14.6)
[2024-11-20 02:23] LABS: CREATININE 1.7 mg/dL (0.6-1.0); UREA NITROGEN BLOOD 36.0 mg/dL (9-23)
[2024-11-20 06:48] VITALS: BP 147/99; PULSE 65; RESP 15; O2SAT 98
[2025-01-08] MEDS ORDERED: CHOL125C7 PO (07:25)
[2025-01-08] MEDS ORDERED: MELA3TAB40 PO (07:26)
[2025-01-16] MEDS ORDERED: FLUT1DIS3 INH (13:08)
[2025-01-16] MEDS ORDERED: ALBU18HF2 IH (13:08)
[2025-01-16] MEDS ORDERED: CARV12.545 MT (13:08)
[2025-01-16] MEDS ORDERED: LIP40 MT (13:08)
[2025-01-16] MEDS ORDERED: LOSA100T33 MT (13:08)
[2025-01-16] MEDS ORDERED: FURO-151 MT (13:08)
== END 2024-11-20 07:03 | disposition home or self-care (01) ==
LOC: EDBD → ER 00:58
DX: G89.29 Other chronic pain (principal); M79.672 Pain in left foot; M79.651 Pain in right thigh; J44.9 Chronic obstructive pulmonary disease, unspecified; F17.200 Nicotine dependence, unspecified, uncomplicated; I11.0 Hypertensive heart disease with heart failure; I50.9 Heart failure, unspecified; Z79.01 Long term (current) use of anticoagulants; Z79.82 Long term (current) use of aspirin; Z79.899 Other long term (current) drug therapy
CPT/HCPCS: 80048; 85025; 36415; 93005; 96372; 99285; J1885; Z7610 ×2

== ENCOUNTER 2024-11-21 21:32 | Inpatient (IN) | payer MEDICAID, OTHER ==
[~2024-11-21] VITALS: Ht 167.6 cm; Wt 44.5 kg
[~2024-11-21 21:32] MED LIST changes: -IBUP-1455 PO; +IBUP-2029 PO
[2024-11-21 21:35] VITALS: O2SAT 98
[2024-11-21 23:26] LABS: BASOPHILS % 0.4 % (0.0-2.0); EOSINOPHILS % 1.5 % (0.0-5.0); HEMATOCRIT. 36.4 % (36.0-48.0); HEMOGLOBIN. 12.1 g/dL (12.0-16.0); LYMPHOCYTES % 14.5 % (20.0-50.0); MEAN PLATELET VOLUME 8.9 fl (7.4-10.4); MONOCYTES % 7.5 % (2.0-8.0); NEUTROPHILS % 76.1 % (40.0-76.0); PLATELET 166 x1000/uL (130-400); RED BLOOD CELL COUNT 3.79 mill/uL (4.2-5.4); RED CELL DISTRIBUTION WIDTH 14.4 % (11.6-14.6)
[2024-11-21 23:30] LABS: CREATININE 1.4 mg/dL (0.6-1.0); ETHANOL BLOOD < 10 mg/dL (<10); UREA NITROGEN BLOOD 34 mg/dL (9-23)
[2024-11-21 23:32] LABS: ASPARTATE AMINOTRANSFERASE 58 IU/L (<34); BILIRUBIN DIRECT 0.1 mg/dL (<=3.0); BILIRUBIN TOTAL 0.4 mg/dL (0.1-1.0); PROTEIN TOTAL 5.7 g/dL (6.0-8.3)
[2024-11-21 23:38] LABS: INR 1.0
[2024-11-21 23:40] LABS: TROPONIN I HIGH SENSITIVITY 132 ng/L (3.0-34)
[2024-11-22] MEDS: NITROGLYCERIN OINT 1GM/INCH UDPKT TD SCH (00:38)
[2024-11-22] MEDS: FUROSEMIDE 40MG/4ML VIAL IVP SCH ×2 (00:38→06:23)
[2024-11-22] MEDS: ASPIRIN 325MG EC TABLET PO SCH (00:38)
[2024-11-22] MEDS ORDERED: ONDANSETRON HCL 4MG/2ML INJ IV PRN (01:45)
[2024-11-22] MEDS ORDERED: DEXTROSE 50% WATER 50ML SYRINGE IV PRN (01:45)
[2024-11-22] MEDS ORDERED: ACETAMINOPHEN 325MG TABLET PO PRN (01:45)
[2024-11-22] MEDS ORDERED: CLONIDINE 0.1MG TABLET PO PRN (01:45)
[2024-11-22] MEDS ORDERED: DOCUSATE SODIUM 100MG CAPSULE PO PRN (01:45)
[2024-11-22] MEDS ORDERED: IPRATROPIUM/ALBUTEROL 0.5-3(2.5)MG/3ML NEB HHN PRN (01:45)
[2024-11-22] MEDS ORDERED: LORAZEPAM 0.5MG TABLET PO PRN (01:45)
[2024-11-22 04:02] LABS: CLARITY URINE CLEAR (CLEAR); COLOR URINE YELLOW (YELLOW); GLUCOSE URINE NEGATIVE (NEGATIVE); KETONES URINE NEGATIVE (NEGATIVE); LEUKOCYTE ESTERASE URINE TRACE (NEGATIVE); NITRITE URINE NEGATIVE (NEGATIVE); OCCULT BLOOD URINE NEGATIVE (NEGATIVE); PH URINE 6.5 (4.5-8.0); PROTEIN URINE NEGATIVE (NEGATIVE); SPECIFIC GRAVITY URINE 1.006 (1.005-1.030); UROBILINOGEN URINE 0.2 E.U./dL (0.2-1.0)
[2024-11-22 04:05] VITALS: BP 159/111; PULSE 78; RESP 18; TEMP 36.1956; TEMP 36.2; O2SAT 100
[2024-11-22 06:06] LABS: BACTERIA URINE NONE SEEN; RBC URINE NONE SEEN /hpf (0-2); SQUAMOUS EPITHELIAL CELL URINE FEW /lpf (RARE/1+)
[2024-11-22 06:08] LABS: *AMPHETAMINES SCREEN URINE NEGATIVE (NEGATIVE)
[2024-11-22 06:09] LABS: *BARBITURATES SCREEN URINE NEGATIVE (NEGATIVE); *BENZODIAZEPINES SCREEN URINE NEGATIVE (NEGATIVE); *COCAINE SCREEN URINE PRESUMPTIVE POSITIVE (NEGATIVE); CANNABINOID URINE SCREEN NEGATIVE (NEGATIVE); ECSTASY MDMA SCREEN URINE NEGATIVE (NEGATIVE); METHADONE URINE SCREEN NEGATIVE (NEGATIVE); OPIATES URINE SCREEN NEGATIVE (NEGATIVE); PHENCYCLIDINE URINE SCREEN NEGATIVE (NEGATIVE)
[2024-11-22] MEDS: BLOOD SUGAR DIAGNOSTIC STRIP TEST SCH (06:26)
[2024-11-22 06:47] VITALS: BP 175/124
[2024-11-22] MEDS: HYDRALAZINE 20MG/ML VIAL IV PRN (06:56)
[2024-11-22] MEDS: ACETAMINOPHEN 325MG TABLET PO PRN (06:56)
[2024-11-22 08:00] VITALS: BP 131/81; PULSE 78; RESP 18; TEMP 36.4; O2SAT 100
[2024-11-22] MEDS: INSULIN LISPRO 100 UNITS/ML SUBCUT SCH (08:10)
[2024-11-22] MEDS ORDERED: LOSARTAN 50 MG TABLET PO SCH (09:00)
[2024-11-22] MEDS: ISOSORBIDE MONONITRATE 30MG TABLET SR 24HR PO SCH (09:45)
[2024-11-22] MEDS: ASPIRIN 81MG TABLET PO SCH (09:46)
[2024-11-22] MEDS: ENOXAPARIN 40MG/0.4ML SYR SUBCUT SCH (09:46)
[2024-11-22 10:29] LABS: BASOPHILS % 0.4 % (0.0-2.0); EOSINOPHILS % 1.6 % (0.0-5.0); HEMATOCRIT. 37.9 % (36.0-48.0); HEMOGLOBIN. 12.6 g/dL (12.0-16.0); LYMPHOCYTES % 11.6 % (20.0-50.0); MEAN PLATELET VOLUME 8.5 fl (7.4-10.4); MONOCYTES % 7.9 % (2.0-8.0); NEUTROPHILS % 78.5 % (40.0-76.0); PLATELET 165 x1000/uL (130-400); RED BLOOD CELL COUNT 3.96 mill/uL (4.2-5.4); RED CELL DISTRIBUTION WIDTH 14.3 % (11.6-14.6)
[2024-11-22 10:57] LABS: CREATINE KINASE MB FRACTION 5.4 ng/mL (0.5-3.6); CREATININE 1.3 mg/dL (0.6-1.0)
[2024-11-22 10:58] LABS: LDL CHOLESTEROL 98.0 mg/dL (5-100); TRIGLYCERIDE 62.0 mg/dL (0-150); UREA NITROGEN BLOOD 26.0 mg/dL (9-23)
[2024-11-22 11:02] LABS: T4 FREE 1.28 ng/dL (0.89-1.76)
[2024-11-22 11:03] LABS: TROPONIN I HIGH SENSITIVITY 114.0 ng/L (3.0-34)
[2024-11-22 12:00] VITALS: BP 141/97; PULSE 77; RESP 16; TEMP 36.2; O2SAT 100
[2024-11-22 16:00] VITALS: BP 144/91; PULSE 71; RESP 18; TEMP 36.7; O2SAT 97
[2024-11-22 17:20] LABS: CREATINE KINASE MB FRACTION 4.3 ng/mL (0.5-3.6)
[2024-11-22 18:17] LABS: TROPONIN I HIGH SENSITIVITY 121.0 ng/L (3.0-34)
[2024-11-22 20:00] VITALS: BP 145/109; PULSE 68; RESP 18; TEMP 36.5; O2SAT 96
[2024-11-22] MEDS: FAMOTIDINE 20MG TABLET PO SCH (20:58)
[2024-11-22] MEDS: ATORVASTATIN CALCIUM 40MG TABLET PO SCH (20:58)
[2024-11-22] MEDS: GUAIFENESIN 200MG/10ML SUGAR FREE UDC PO PRN (22:35)
[2024-11-23] MEDS: MELATONIN 3MG TABLET PO SCH (01:05)
[2024-11-23 04:00] VITALS: BP 167/118; PULSE 65; RESP 19; TEMP 36.7; O2SAT 97
[2024-11-23 08:00] VITALS: BP 148/102; PULSE 71; RESP 18; TEMP 36.7; O2SAT 97
[2024-11-23 10:11] VITALS: PULSE 71
[2024-11-23] MEDS: LOSARTAN 25 MG TABLET PO SCH (10:45)
[2024-11-23 10:53] LABS: PLATELET 173 x1000/uL (130-400); RED BLOOD CELL COUNT 4.40 mill/uL (4.2-5.4); RED CELL DISTRIBUTION WIDTH 14.9 % (11.6-14.6)
[2024-11-23 11:10] LABS: CREATININE 1.5 mg/dL (0.6-1.0); UREA NITROGEN BLOOD 29.0 mg/dL (9-23)
[2024-11-24] MEDS ORDERED: EMPAGLIFLOZIN 10MG TABLET PO SCH (09:00)
== END 2024-11-23 12:20 | disposition home or self-care (01) | DRG 194 ==
LOC: ER 21:32 → EDBEDREQTM 11-22 01:51 → EDBEDREQ 11-22 01:51 → ENRESERV 11-22 03:50 → 7WST 11-22 04:03
PROVIDERS: ADMIT Internal Medicine; ATTEND Internal Medicine
DX: I11.0 Hypertensive heart disease with heart failure (principal); I21.A1 Myocardial infarction type 2; E87.0 Hyperosmolality and hypernatremia; I50.23 Acute on chronic systolic (congestive) heart failure; N17.9 Acute kidney failure, unspecified; R73.9 Hyperglycemia, unspecified; E78.5 Hyperlipidemia, unspecified; F17.210 Nicotine dependence, cigarettes, uncomplicated; G89.29 Other chronic pain; I25.10 Atherosclerotic heart disease of native coronary artery without angina pectoris; Z91.148 Patient's other noncompliance with medication regimen for other reason; Z79.01 Long term (current) use of anticoagulants; Z79.899 Other long term (current) drug therapy
CPT/HCPCS: 36415; 71045; 80048; 80061; 80076; 80305; 80320; 81003; 82550; 82553; 82962; 83036; 83880; 84439; 84443; 84484; 85025; 85027; 85379; 93005; 93306; 93970; 99285; J0360; J1650; J1938; G0480

== ENCOUNTER 2024-12-13 21:33 | Inpatient (IN) | payer MEDICAID ==
[~2024-12-13] VITALS: Ht 170.2 cm; Wt 57.6 kg
[~2024-12-13 21:33] MED LIST changes: +IBUP-1455 PO; -IBUP-2029 PO; -METH4TAB95 MT; -TRAZ-251 MT
[2024-12-13] MEDS: FUROSEMIDE 40MG TABLET PO ONE (23:15)
[2024-12-13] MEDS: ALBUTEROL (0.083%) 2.5MG/3ML NEB HHN ONE (23:15)
[2024-12-13] MEDS: HYDRALAZINE 20MG/ML VIAL IV ONE (23:15)
[2024-12-13] MEDS: METHYLPREDNISOLONE SOD SUCC 125MG/2ML (ACT-O-VIAL) IV ONE (23:15)
[2024-12-13] MEDS: IPRATROPIUM BROMIDE (0.02%) 0.5MG/2.5ML NEB HHN ONE (23:16)
[2024-12-13 23:23] VITALS: PULSE 89; RESP 20; O2SAT 98
[2024-12-13 23:39] LABS: BASOPHILS % 1.4 % (0.0-2.0); EOSINOPHILS % 2.4 % (0.0-5.0); HEMATOCRIT. 40.5 % (36.0-48.0); HEMOGLOBIN. 13.1 g/dL (12.0-16.0); LYMPHOCYTES % 23.9 % (20.0-50.0); MEAN PLATELET VOLUME 9.1 fl (7.4-10.4); MONOCYTES % 8.6 % (2.0-8.0); NEUTROPHILS % 63.7 % (40.0-76.0); PLATELET 182 x1000/uL (130-400); RED BLOOD CELL COUNT 4.16 mill/uL (4.2-5.4); RED CELL DISTRIBUTION WIDTH 15.1 % (11.6-14.6)
[2024-12-14] MEDS: ACETAMINOPHEN 325MG TABLET PO ONE (00:36)
[2024-12-14] MEDS: ALBUTEROL (0.083%) 2.5MG/3ML NEB HHN ONE (02:27)
[2024-12-14 03:32] LABS: CREATININE 1.4 mg/dL (0.6-1.0); UREA NITROGEN BLOOD 25 mg/dL (9-23)
[2024-12-14 03:34] LABS: ASPARTATE AMINOTRANSFERASE 35 IU/L (<34); BILIRUBIN DIRECT 0.2 mg/dL (<=3.0); BILIRUBIN TOTAL 0.6 mg/dL (0.1-1.0); PROTEIN TOTAL 6.0 g/dL (6.0-8.3)
[2024-12-14 03:38] LABS: TROPONIN I HIGH SENSITIVITY 145 ng/L (3.0-34)
[2024-12-14 04:50] VITALS: PULSE 79; RESP 18; O2SAT 98
[2024-12-14] MEDS: ALBUTEROL (0.083%) 2.5MG/3ML NEB HHN NR (04:50)
[2024-12-14] MEDS ORDERED: IPRATROPIUM/ALBUTEROL 0.5-3(2.5)MG/3ML NEB HHN PRN (05:15)
[2024-12-14] MEDS ORDERED: ONDANSETRON HCL 4MG/2ML INJ IV PRN (05:15)
[2024-12-14] MEDS ORDERED: GUAIFENESIN 200MG/10ML SUGAR FREE UDC PO PRN (05:15)
[2024-12-14] MEDS ORDERED: MAGNESIUM/ALUMINUM HYDROXIDE/SIMETHICONE 30ML UDC PO PRN (05:15)
[2024-12-14] MEDS ORDERED: ACETAMINOPHEN 325MG TABLET PO PRN (05:15)
[2024-12-14] MEDS ORDERED: DEXTROSE 50% WATER 50ML SYRINGE IV PRN (05:15)
[2024-12-14] MEDS ORDERED: DOCUSATE SODIUM 100MG CAPSULE PO PRN (05:15)
[2024-12-14] MEDS: LOSARTAN 50 MG TABLET PO SCH (06:00)
[2024-12-14] MEDS: APIXABAN 5 MG TABLET PO STA (06:00)
[2024-12-14] MEDS: HYDRALAZINE HCL 50MG TABLET PO SCH (06:53)
[2024-12-14 08:30] VITALS: BP 149/107; PULSE 85; RESP 18; TEMP 36.5; O2SAT 97
[2024-12-14] MEDS: FUROSEMIDE 40MG/4ML VIAL IVP SCH (09:00)
[2024-12-14] MEDS: IPRATROPIUM/ALBUTEROL 0.5-3(2.5)MG/3ML NEB HHN SCH (09:37)
[2024-12-14] MEDS: SPIRONOLACTONE 25MG TABLET PO SCH (09:56)
[2024-12-14] MEDS: FERROUS SULFATE 325MG TABLET PO SCH (09:56)
[2024-12-14] MEDS: EMPAGLIFLOZIN 10MG TABLET PO SCH (09:57)
[2024-12-14] MEDS: ASPIRIN 81MG EC TABLET PO SCH (09:57)
[2024-12-14] MEDS: APIXABAN 5 MG TABLET PO SCH (09:57)
[2024-12-14] MEDS: METHYLPREDNISOLONE SOD SUCC 40MG/ML (ACT-O-VIAL) IV SCH (09:59)
[2024-12-14 12:00] VITALS: BP 154/108; PULSE 82; RESP 18; TEMP 36.6; O2SAT 100
[2024-12-14 12:06] VITALS: BP 149/105; PULSE 85; RESP 18; TEMP 36.5292
[2024-12-14 13:38] LABS: TRIGLYCERIDE 38.0 mg/dL (0-150)
[2024-12-14 13:39] LABS: LDL CHOLESTEROL 99.0 mg/dL (5-100)
[2024-12-14 13:43] LABS: T4 FREE 1.49 ng/dL (0.89-1.76)
[2024-12-14 14:25] LABS: TROPONIN I HIGH SENSITIVITY 82.0 ng/L (3.0-34)
[2024-12-14 16:00] VITALS: BP 157/104; PULSE 97; RESP 18; TEMP 36.7; O2SAT 100
[2024-12-14 20:00] VITALS: BP 139/96; PULSE 82; RESP 20; TEMP 36.8; O2SAT 97
[2024-12-14] MEDS ORDERED: CARVEDILOL 12.5MG TABLET PO SCH (21:00)
[2024-12-14] MEDS: FAMOTIDINE 20MG TABLET PO SCH (21:00)
[2024-12-14] MEDS: ATORVASTATIN CALCIUM 40MG TABLET PO SCH (21:00)
[2024-12-14] MEDS: MELATONIN 3MG TABLET PO SCH (22:43)
[2024-12-14 23:34] LABS: *AMPHETAMINES SCREEN URINE NEGATIVE (NEGATIVE); *BARBITURATES SCREEN URINE NEGATIVE (NEGATIVE); *BENZODIAZEPINES SCREEN URINE NEGATIVE (NEGATIVE); *COCAINE SCREEN URINE PRESUMPTIVE POSITIVE (NEGATIVE); CANNABINOID URINE SCREEN NEGATIVE (NEGATIVE); ECSTASY MDMA SCREEN URINE NEGATIVE (NEGATIVE); METHADONE URINE SCREEN NEGATIVE (NEGATIVE); OPIATES URINE SCREEN NEGATIVE (NEGATIVE); PHENCYCLIDINE URINE SCREEN NEGATIVE (NEGATIVE)
[2024-12-15] VITALS: BP 149/110; PULSE 92; RESP 18; TEMP 36.4; O2SAT 96
[2024-12-15] MEDS: CLONIDINE 0.1MG TABLET PO PRN (01:15)
[2024-12-15 04:00] VITALS: BP 142/96; PULSE 61; RESP 20; TEMP 36.6; O2SAT 98
[2024-12-15 08:01] VITALS: BP 151/106; PULSE 80; RESP 18; TEMP 36.1; O2SAT 98
[2024-12-15 12:00] VITALS: BP 151/102; PULSE 82; RESP 18; TEMP 36.1; O2SAT 97
[2024-12-15 12:07] VITALS: BP 151/102; PULSE 84; RESP 18; TEMP 96.7
[2024-12-15] MEDS ORDERED: MELATONIN 3MG TABLET PO SCH (21:00)
== END 2024-12-15 13:05 | disposition home or self-care (01) | DRG 190 ==
LOC: EDBD → ER 21:33 → 8WST 12-14 04:39 → ENRESERV 12-14 07:16
PROVIDERS: ADMIT Internal Medicine; ATTEND Internal Medicine
DX: I21.4 Non-ST elevation (NSTEMI) myocardial infarction (principal); J96.01 Acute respiratory failure with hypoxia; J44.1 Chronic obstructive pulmonary disease with (acute) exacerbation; I16.1 Hypertensive emergency; I13.0 Hypertensive heart and chronic kidney disease with heart failure and stage 1 through stage 4 chronic kidney disease, or unspecified chronic kidney disease; I50.22 Chronic systolic (congestive) heart failure; E78.5 Hyperlipidemia, unspecified; J98.4 Other disorders of lung; N18.30 Chronic kidney disease, stage 3 unspecified; I42.9 Cardiomyopathy, unspecified; T50.995A Adverse effect of other drugs, medicaments and biological substances, initial encounter; J70.4 Drug-induced interstitial lung disorders, unspecified; F14.10 Cocaine abuse, uncomplicated; J44.89 Other specified chronic obstructive pulmonary disease; Z79.01 Long term (current) use of anticoagulants; Z79.899 Other long term (current) drug therapy; Z86.711 Personal history of pulmonary embolism; Y92.89 Other specified places as the place of occurrence of the external cause
CPT/HCPCS: 36415; 71045; 80048; 80061; 80076; 80305; 82550; 83880; 84439; 84443; 84484; 85025; 93005; 94070; 94640; 94664; 94760; 98960; 99285; J0360; J1938; J2919

== ENCOUNTER 2024-12-27 01:22 | Inpatient (IN) | payer MEDICAID ==
[~2024-12-27] VITALS: Ht 170.2 cm; Wt 50.6 kg
[2024-12-27 02:30] LABS: BASOPHILS % 0.9 % (0.0-2.0); EOSINOPHILS % 2.4 % (0.0-5.0); HEMATOCRIT. 44.4 % (36.0-48.0); HEMOGLOBIN. 14.3 g/dL (12.0-16.0); LYMPHOCYTES % 20.5 % (20.0-50.0); MEAN PLATELET VOLUME 8.5 fl (7.4-10.4); MONOCYTES % 9.6 % (2.0-8.0); NEUTROPHILS % 66.6 % (40.0-76.0); PLATELET 174 x1000/uL (130-400); RED BLOOD CELL COUNT 4.55 mill/uL (4.2-5.4); RED CELL DISTRIBUTION WIDTH 16.2 % (11.6-14.6)
[2024-12-27 02:41] LABS: INR 1.1
[2024-12-27 03:00] LABS: CREATININE 1.8 mg/dL (0.6-1.0); TROPONIN I HIGH SENSITIVITY 151 ng/L (3.0-34); UREA NITROGEN BLOOD 29 mg/dL (9-23)
[2024-12-27] MEDS: FUROSEMIDE 40MG/4ML VIAL IVP ONE (05:57)
[2024-12-27] MEDS: ASPIRIN 325MG EC TABLET PO ONE (05:57)
[2024-12-27] MEDS: NITROGLYCERIN OINT 1GM/INCH UDPKT TD ONE (05:57)
[2024-12-27 08:00] VITALS: BP 136/83; PULSE 81; RESP 19; TEMP 36.9; O2SAT 96
[2024-12-27] MEDS: FUROSEMIDE 100MG/10ML VIAL IVP SCH ×2 (11:05→17:15)
[2024-12-27 12:00] VITALS: BP 148/99; PULSE 20; RESP 20; TEMP 36.8; O2SAT 100
[2024-12-27] MEDS: ACETAMINOPHEN 325MG TABLET PO PRN (12:13)
[2024-12-27] MEDS: METOLAZONE 2.5MG TABLET PO NR (12:13)
[2024-12-27] MEDS: POTASSIUM CHLORIDE 20MEQ TABLET SR PO NR (12:14)
[2024-12-27] MEDS: ENOXAPARIN 60MG/0.6ML SYR SUBCUT SCH (12:14)
[2024-12-27 13:31] VITALS: BP 138/68; PULSE 88; RESP 16; TEMP 35.6952
[2024-12-27 16:00] VITALS: BP 130/86; PULSE 81; RESP 19; TEMP 36.7; O2SAT 97
[2024-12-27 16:35] VITALS: PULSE 89; RESP 24
[2024-12-27] MEDS: IPRATROPIUM/ALBUTEROL 0.5-3(2.5)MG/3ML NEB HHN SCH (16:36)
[2024-12-27 20:15] VITALS: PULSE 74; RESP 16; O2SAT 97
[2024-12-28] VITALS (7 sets, daily range): BP systolic 132–150; BP diastolic 93–102; PULSE 72–90; RESP 16–18; TEMP 36.2–37; O2SAT 92–98
[2024-12-28] MEDS: ZOLPIDEM TARTRATE 5MG TABLET PO PRN (02:34)
[2024-12-28 06:38] LABS: *AMPHETAMINES SCREEN URINE NEGATIVE (NEGATIVE); *BARBITURATES SCREEN URINE NEGATIVE (NEGATIVE); *BENZODIAZEPINES SCREEN URINE NEGATIVE (NEGATIVE); *COCAINE SCREEN URINE PRESUMPTIVE POSITIVE (NEGATIVE); CANNABINOID URINE SCREEN NEGATIVE (NEGATIVE); ECSTASY MDMA SCREEN URINE NEGATIVE (NEGATIVE); METHADONE URINE SCREEN NEGATIVE (NEGATIVE); OPIATES URINE SCREEN NEGATIVE (NEGATIVE); PHENCYCLIDINE URINE SCREEN NEGATIVE (NEGATIVE)
[2024-12-28] MEDS: AMLODIPINE 5MG TABLET PO SCH (16:10)
[2024-12-28] MEDS: HYDRALAZINE HCL 50MG TABLET PO SCH (21:08)
[2024-12-28] MEDS: CARVEDILOL 12.5MG TABLET PO SCH (21:08)
[2024-12-29] VITALS (7 sets, daily range): BP systolic 138–147; BP diastolic 100–114; PULSE 55–84; RESP 15–19; TEMP 36.4–36.6; O2SAT 94–100
== END 2024-12-29 11:50 | disposition left against medical advice (07) | DRG 194 ==
LOC: ER 01:22 → 6WST 04:48 → EDBEDREQTM 04:53 → EDBEDREQ 04:53 → ENRESERV 05:14
PROVIDERS: ADMIT Internal Medicine; ATTEND Internal Medicine
DX: I13.0 Hypertensive heart and chronic kidney disease with heart failure and stage 1 through stage 4 chronic kidney disease, or unspecified chronic kidney disease (principal); N17.0 Acute kidney failure with tubular necrosis; N18.4 Chronic kidney disease, stage 4 (severe); Z59.00 Homelessness unspecified; I50.23 Acute on chronic systolic (congestive) heart failure; I42.7 Cardiomyopathy due to drug and external agent; J44.9 Chronic obstructive pulmonary disease, unspecified; F14.10 Cocaine abuse, uncomplicated; F17.210 Nicotine dependence, cigarettes, uncomplicated; Z53.29 Procedure and treatment not carried out because of patient's decision for other reasons; Z91.148 Patient's other noncompliance with medication regimen for other reason
CPT/HCPCS: 36415; 71045; 80048; 80305; 80320; 83880; 84484; 85025; 93005; 94070; 94640; 94664; 94760; 99285; J1650; J1938; G0480

== ENCOUNTER 2025-01-17 22:40 | Inpatient (IN) | payer MEDICAID ==
[~2025-01-17] VITALS: Ht 154.9 cm; Wt 52.8 kg
[~2025-01-17 22:40] MED LIST changes: +ALBU18HF2 IH; +CHOL125C7 PO; +FLUT1DIS3 INH; +LIP40 MT; +LOSA100T33 MT; +MELA3TAB40 PO; -POTA-204 PO
[2025-01-17 22:55] VITALS: O2SAT 98
[2025-01-17 23:50] LABS: BASOPHILS % 0.9 % (0.0-2.0); EOSINOPHILS % 2.5 % (0.0-5.0); HEMATOCRIT. 40.3 % (36.0-48.0); HEMOGLOBIN. 12.9 g/dL (12.0-16.0); LYMPHOCYTES % 15.1 % (20.0-50.0); MEAN PLATELET VOLUME 8.5 fl (7.4-10.4); MONOCYTES % 12.4 % (2.0-8.0); NEUTROPHILS % 69.1 % (40.0-76.0); PLATELET 197 x1000/uL (130-400); RED BLOOD CELL COUNT 4.16 mill/uL (4.2-5.4); RED CELL DISTRIBUTION WIDTH 15.3 % (11.6-14.6)
[2025-01-18 00:02] LABS: INR 1.2
[2025-01-18 00:04] LABS: CREATININE 1.7 mg/dL (0.6-1.0); UREA NITROGEN BLOOD 39 mg/dL (9-23)
[2025-01-18 00:05] LABS: ASPARTATE AMINOTRANSFERASE 22 IU/L (<34)
[2025-01-18 00:06] LABS: BILIRUBIN DIRECT 0.2 mg/dL (<=3.0); BILIRUBIN TOTAL 0.6 mg/dL (0.1-1.0); PROTEIN TOTAL 5.5 g/dL (6.0-8.3)
[2025-01-18 00:09] LABS: TROPONIN I HIGH SENSITIVITY 163 ng/L (3.0-34)
[2025-01-18] MEDS: ASPIRIN 325MG EC TABLET PO NR (00:47)
[2025-01-18] MEDS: NITROGLYCERIN OINT 1GM/INCH UDPKT TD NR (00:48)
[2025-01-18] MEDS: FUROSEMIDE 40MG/4ML VIAL IVP NR (00:48)
[2025-01-18] MEDS: METHYLPREDNISOLONE SOD SUCC 125MG/2ML (ACT-O-VIAL) IV ONE (02:10)
[2025-01-18] MEDS: MORPHINE SULFATE 4 MG/ML INJ (FOR IV/IM USE) IV ONE (02:53)
[2025-01-18] MEDS: ALBUTEROL (0.083%) 2.5MG/3ML NEB HHN ONE (02:58)
[2025-01-18] MEDS ORDERED: ONDANSETRON HCL 4MG/2ML INJ IV PRN (04:00)
[2025-01-18] MEDS ORDERED: IPRATROPIUM/ALBUTEROL 0.5-3(2.5)MG/3ML NEB HHN PRN (04:00)
[2025-01-18] MEDS ORDERED: GUAIFENESIN 200MG/10ML SUGAR FREE UDC PO PRN (04:00)
[2025-01-18] MEDS ORDERED: MAGNESIUM/ALUMINUM HYDROXIDE/SIMETHICONE 30ML UDC PO PRN (04:00)
[2025-01-18] MEDS ORDERED: DOCUSATE SODIUM 100MG CAPSULE PO PRN (04:00)
[2025-01-18] MEDS ORDERED: ACETAMINOPHEN 325MG TABLET PO PRN ×2 (04:00)
[2025-01-18] MEDS: CLONIDINE 0.1MG TABLET PO PRN (04:09)
[2025-01-18 04:24] LABS: CLARITY URINE CLEAR (CLEAR); COLOR URINE YELLOW (YELLOW); GLUCOSE URINE NEGATIVE (NEGATIVE); KETONES URINE NEGATIVE (NEGATIVE); LEUKOCYTE ESTERASE URINE NEGATIVE (NEGATIVE); NITRITE URINE NEGATIVE (NEGATIVE); OCCULT BLOOD URINE NEGATIVE (NEGATIVE); PH URINE 7.0 (4.5-8.0); PROTEIN URINE NEGATIVE (NEGATIVE); SPECIFIC GRAVITY URINE 1.007 (1.005-1.030); UROBILINOGEN URINE 0.2 E.U./dL (0.2-1.0)
[2025-01-18 04:38] LABS: *AMPHETAMINES SCREEN URINE NEGATIVE (NEGATIVE); *BARBITURATES SCREEN URINE NEGATIVE (NEGATIVE); *BENZODIAZEPINES SCREEN URINE NEGATIVE (NEGATIVE); *COCAINE SCREEN URINE NEGATIVE (NEGATIVE); CANNABINOID URINE SCREEN NEGATIVE (NEGATIVE); ECSTASY MDMA SCREEN URINE NEGATIVE (NEGATIVE); METHADONE URINE SCREEN NEGATIVE (NEGATIVE); OPIATES URINE SCREEN PRESUMPTIVE POSITIVE (NEGATIVE); PHENCYCLIDINE URINE SCREEN NEGATIVE (NEGATIVE)
[2025-01-18 05:14] VITALS: BP 155/108; PULSE 80; RESP 20; TEMP 36.3068
[2025-01-18 08:00] VITALS: BP 143/90; PULSE 72; RESP 18; TEMP 36.2; O2SAT 95
[2025-01-18] MEDS: FUROSEMIDE 40MG/4ML VIAL IV SCH (08:10)
[2025-01-18] MEDS: AMLODIPINE 5MG TABLET PO SCH (09:00)
[2025-01-18] MEDS: ENOXAPARIN 30MG/0.3ML SYR SUBCUT SCH (09:00)
[2025-01-18] MEDS ORDERED: LOSARTAN 100 MG TABLET PO SCH (09:00)
[2025-01-18] MEDS: ASPIRIN 81MG EC TABLET PO SCH (09:00)
[2025-01-18] MEDS ORDERED: HYDRALAZINE HCL 50MG TABLET PO SCH (14:00)
[2025-01-18] MEDS ORDERED: ATORVASTATIN CALCIUM 40MG TABLET PO SCH (21:00)
== END 2025-01-18 14:15 | disposition left against medical advice (07) | DRG 194 ==
LOC: ER 22:40 → 6WST 01-18 01:00 → EDBEDREQDT 01-18 01:12 → EDBEDREQTM 01-18 01:12 → EDBEDREQ 01-18 01:12
PROVIDERS: ADMIT Hospitalist; ATTEND Hospitalist
DX: I13.0 Hypertensive heart and chronic kidney disease with heart failure and stage 1 through stage 4 chronic kidney disease, or unspecified chronic kidney disease (principal); J96.01 Acute respiratory failure with hypoxia; I21.A1 Myocardial infarction type 2; I50.23 Acute on chronic systolic (congestive) heart failure; N17.9 Acute kidney failure, unspecified; F17.210 Nicotine dependence, cigarettes, uncomplicated; Z53.21 Procedure and treatment not carried out due to patient leaving prior to being seen by health care provider; I07.1 Rheumatic tricuspid insufficiency; J44.9 Chronic obstructive pulmonary disease, unspecified; N18.30 Chronic kidney disease, stage 3 unspecified; I34.0 Nonrheumatic mitral (valve) insufficiency; I25.10 Atherosclerotic heart disease of native coronary artery without angina pectoris; Z79.899 Other long term (current) drug therapy; Z79.82 Long term (current) use of aspirin
CPT/HCPCS: 36415; 71045; 80048; 80076; 80305; 80320; 81003; 83880; 84484; 85025; 93005; 99285; J1938; J2270; J2919; G0480

== ENCOUNTER 2025-02-06 21:45 | Inpatient (IN) | payer MEDICAID ==
[~2025-02-06] VITALS: Ht 167.6 cm; Wt 59.0 kg
[~2025-02-06 21:45] MED LIST changes: -ALBU18HF2 IH; -IBUP-1455 PO; -LIP40 MT; -LOSA100T33 MT; -LOSA50TA41 MT; -MELA3TAB40 PO; +METH4TAB95 MT
[2025-02-06] MEDS: IPRATROPIUM BROMIDE (0.02%) 0.5MG/2.5ML NEB HHN SCH (22:34)
[2025-02-06] MEDS: ALBUTEROL (0.083%) 2.5MG/3ML NEB HHN SCH (22:34)
[2025-02-06 22:35] VITALS: PULSE 90; RESP 20; O2SAT 99
[2025-02-06 23:04] LABS: INR 1.2
[2025-02-06 23:07] LABS: CREATININE 1.3 mg/dL (0.6-1.0); UREA NITROGEN BLOOD 32 mg/dL (9-23)
[2025-02-06 23:09] LABS: ASPARTATE AMINOTRANSFERASE 35 IU/L (<34); BILIRUBIN DIRECT 0.3 mg/dL (<=3.0)
[2025-02-06 23:10] LABS: BILIRUBIN TOTAL 0.7 mg/dL (0.1-1.0); PROTEIN TOTAL 5.5 g/dL (6.0-8.3)
[2025-02-06] MEDS: MAGNESIUM 2 G PREMIX 50 ML IV ONE (23:12)
[2025-02-06] MEDS: METHYLPREDNISOLONE SOD SUCC 125MG/2ML (ACT-O-VIAL) IV ONE (23:12)
[2025-02-06 23:14] LABS: TROPONIN I HIGH SENSITIVITY 1063 ng/L (3.0-34)
[2025-02-06 23:16] LABS: BASOPHILS % 0.6 % (0.0-2.0); EOSINOPHILS % 6.8 % (0.0-5.0); HEMATOCRIT. 38.2 % (36.0-48.0); HEMOGLOBIN. 12.2 g/dL (12.0-16.0); LYMPHOCYTES % 9.0 % (20.0-50.0); MEAN PLATELET VOLUME 8.5 fl (7.4-10.4); MONOCYTES % 10.5 % (2.0-8.0); NEUTROPHILS % 73.1 % (40.0-76.0); PLATELET 234 x1000/uL (130-400); RED BLOOD CELL COUNT 4.05 mill/uL (4.2-5.4); RED CELL DISTRIBUTION WIDTH 15.6 % (11.6-14.6)
[2025-02-06] MEDS: ASPIRIN 81MG TABLET PO ONE (23:43)
[2025-02-06] MEDS: NITROGLYCERIN 0.4MG TABLET SL SL PRN (23:44)
[2025-02-06] MEDS: FUROSEMIDE 40MG/4ML VIAL IVP ONE (23:45)
[2025-02-07] VITALS (7 sets, daily range): BP systolic 115–164; BP diastolic 112–121; PULSE 80–92; RESP 18–20; TEMP 36.2–36.5292; O2SAT 92–99
[2025-02-07] MEDS: FUROSEMIDE 40MG TABLET PO ONE (00:29)
[2025-02-07 01:33] LABS: TROPONIN I HIGH SENSITIVITY 976 ng/L (3.0-34)
[2025-02-07] MEDS: ZOLPIDEM TARTRATE 5MG TABLET PO PRN ×2 (03:29→21:22)
[2025-02-07 06:29] LABS: INFLUENZA TYPE A Presumptive Negative (Pres. Neg.); INFLUENZA TYPE B Presumptive Negative (Pres. Neg.)
[2025-02-07] MEDS ORDERED: ENOXAPARIN 40MG/0.4ML SYR SUBCUT SCH (08:30)
[2025-02-07] MEDS ORDERED: MAGNESIUM/ALUMINUM HYDROXIDE/SIMETHICONE 30ML UDC PO PRN (08:30)
[2025-02-07] MEDS ORDERED: ONDANSETRON HCL 4MG/2ML INJ IV PRN (08:30)
[2025-02-07] MEDS: PANTOPRAZOLE SODIUM 40 MG/VIAL IV SCH (09:00)
[2025-02-07] MEDS: METHYLPREDNISOLONE SOD SUCC 40MG/ML (ACT-O-VIAL) IV SCH (09:00)
[2025-02-07] MEDS: FUROSEMIDE 40MG/4ML VIAL IVP SCH (09:00)
[2025-02-07] MEDS: ASPIRIN 81MG TABLET PO SCH (09:55)
[2025-02-07] MEDS: AMLODIPINE 5MG TABLET PO SCH (09:56)
[2025-02-07] MEDS: CARVEDILOL 12.5MG TABLET PO SCH (09:58)
[2025-02-07] MEDS: APIXABAN 5 MG TABLET PO SCH (09:58)
[2025-02-07] MEDS: HYDRALAZINE HCL 50MG TABLET PO SCH (13:54)
[2025-02-07] MEDS: ACETAMINOPHEN 325MG TABLET PO PRN (16:29)
[2025-02-07] MEDS ORDERED: NALOXONE HCL 0.4MG/ML VIAL IV PRN (19:00)
[2025-02-07] MEDS: CLONIDINE 0.1MG TABLET PO PRN (19:59)
[2025-02-07] MEDS: HYDROCODONE/ACETAMINOPHEN 5/325MG TABLET PO PRN (19:59)
[2025-02-07] MEDS: IPRATROPIUM/ALBUTEROL 0.5-3(2.5)MG/3ML NEB NEB SCH (20:44)
[2025-02-07] MEDS: ATORVASTATIN CALCIUM 40MG TABLET PO SCH (21:17)
[2025-02-08] VITALS (8 sets, daily range): BP systolic 142–154; BP diastolic 100–116; PULSE 73–90; RESP 18–20; TEMP 36.3–36.9; O2SAT 95–98
[2025-02-08 01:55] LABS: TROPONIN I HIGH SENSITIVITY 663 ng/L (3.0-34)
[2025-02-08 13:29] LABS: CREATININE 1.6 mg/dL (0.6-1.0); UREA NITROGEN BLOOD 24.0 mg/dL (9-23)
[2025-02-14] MEDS ORDERED: HYDR30CR80 TP (11:41)
== END 2025-02-08 15:15 | disposition home or self-care (01) | DRG 140 ==
LOC: ER 21:45 → 7WST 02-07 00:40 → EDBEDREQTM 02-07 00:52 → EDBEDREQ 02-07 00:52 → CANRESERV 02-07 01:04 → ENRESERV 02-07 01:04 → 7WST 02-07 16:14
PROVIDERS: ADMIT Internal Medicine; ATTEND Internal Medicine
DX: J44.1 Chronic obstructive pulmonary disease with (acute) exacerbation (principal); I50.23 Acute on chronic systolic (congestive) heart failure; I27.20 Pulmonary hypertension, unspecified; I21.A1 Myocardial infarction type 2; N17.9 Acute kidney failure, unspecified; I13.0 Hypertensive heart and chronic kidney disease with heart failure and stage 1 through stage 4 chronic kidney disease, or unspecified chronic kidney disease; N18.9 Chronic kidney disease, unspecified; I50.20 Unspecified systolic (congestive) heart failure; Z20.822 Contact with and (suspected) exposure to COVID-19; F17.210 Nicotine dependence, cigarettes, uncomplicated; F14.90 Cocaine use, unspecified, uncomplicated; Z79.899 Other long term (current) drug therapy; Z79.82 Long term (current) use of aspirin; Z71.51 Drug abuse counseling and surveillance of drug abuser
CPT/HCPCS: 36415; 71045; 80048; 80076; 82962; 83880; 84443; 84484; 85025; 87426; 87804; 93005; 93970; 94070; 94640; 96365; 96375; 98960; 99291; J1938; J2470; J2919; J3475

== ENCOUNTER 2025-02-20 19:39 | Inpatient (IN) | payer MEDICAID ==
[~2025-02-20] VITALS: Ht 167.6 cm; Wt 57.2 kg
[~2025-02-20 19:39] MED LIST changes: +HYDR30CR80 TP; +LEVO750T68 MT; +METR-167 MT
[2025-02-20 21:33] LABS: BASOPHILS % 0.7 % (0.0-2.0); EOSINOPHILS % 3.1 % (0.0-5.0); HEMATOCRIT. 41.2 % (36.0-48.0); HEMOGLOBIN. 13.1 g/dL (12.0-16.0); LYMPHOCYTES % 12.0 % (20.0-50.0); MEAN PLATELET VOLUME 8.8 fl (7.4-10.4); MONOCYTES % 9.3 % (2.0-8.0); NEUTROPHILS % 74.9 % (40.0-76.0); PLATELET 246 x1000/uL (130-400); RED BLOOD CELL COUNT 4.41 mill/uL (4.2-5.4); RED CELL DISTRIBUTION WIDTH 16.3 % (11.6-14.6)
[2025-02-20 23:40] LABS: CREATININE 1.2 mg/dL (0.6-1.0); UREA NITROGEN BLOOD 19 mg/dL (9-23)
[2025-02-20 23:42] LABS: ASPARTATE AMINOTRANSFERASE 37 IU/L (<34); BILIRUBIN DIRECT 0.2 mg/dL (<=3.0); BILIRUBIN TOTAL 0.5 mg/dL (0.1-1.0); PROTEIN TOTAL 5.1 g/dL (6.0-8.3)
[2025-02-21] VITALS (7 sets, daily range): BP systolic 120–147; BP diastolic 88–100; PULSE 68–84; RESP 16–22; TEMP 36.2–37.0852; O2SAT 95–100
[2025-02-21 00:02] LABS: TROPONIN I HIGH SENSITIVITY 130 ng/L (3.0-34)
[2025-02-21] MEDS ORDERED: DOCUSATE SODIUM 100MG CAPSULE PO PRN (00:45)
[2025-02-21] MEDS ORDERED: ONDANSETRON HCL 4MG/2ML INJ IV PRN (00:45)
[2025-02-21] MEDS ORDERED: IPRATROPIUM/ALBUTEROL 0.5-3(2.5)MG/3ML NEB HHN PRN ×2 (00:45→04:00)
[2025-02-21] MEDS ORDERED: ACETAMINOPHEN 325MG TABLET PO PRN (00:45)
[2025-02-21] MEDS: FUROSEMIDE 40MG/4ML VIAL IVP ONE (01:02)
[2025-02-21] MEDS: ASPIRIN 81MG TABLET PO SCH (02:09)
[2025-02-21] MEDS: MAGNESIUM 2 G PREMIX 50 ML IV NR (02:09)
[2025-02-21] MEDS: PANTOPRAZOLE SODIUM 40 MG/VIAL IV SCH (02:09)
[2025-02-21 03:19] LABS: TRIGLYCERIDE 184.0 mg/dL (0-150); TROPONIN I HIGH SENSITIVITY 125 ng/L (3.0-34)
[2025-02-21 03:20] LABS: LDL CHOLESTEROL 66.0 mg/dL (5-100)
[2025-02-21] MEDS: HYDRALAZINE HCL 50MG TABLET PO SCH (05:02)
[2025-02-21] MEDS: ACETAMINOPHEN 325MG TABLET PO PRN (06:34)
[2025-02-21] MEDS: GUAIFENESIN 200MG/10ML SUGAR FREE UDC PO PRN (07:48)
[2025-02-21] MEDS: ENOXAPARIN 30MG/0.3ML SYR SUBCUT SCH (09:00)
[2025-02-21] MEDS ORDERED: CARVEDILOL 12.5MG TABLET PO SCH (09:00)
[2025-02-21] MEDS: IPRATROPIUM/ALBUTEROL 0.5-3(2.5)MG/3ML NEB HHN SCH (09:04)
[2025-02-21] MEDS: FUROSEMIDE 40MG/4ML VIAL IV SCH (10:36)
[2025-02-21] MEDS: THROAT LOZENGES-BENZOCAINE/MENTH/CETYLPYRD CL LOZENGES MM PRN (10:36)
[2025-02-21] MEDS: FERROUS SULFATE 325MG TABLET PO SCH (10:37)
[2025-02-21] MEDS: AMLODIPINE 5MG TABLET PO SCH (10:37)
[2025-02-21] MEDS: ATORVASTATIN CALCIUM 40MG TABLET PO SCH (20:35)
[2025-02-22] VITALS: BP 100/57; PULSE 60; RESP 17; TEMP 36.3; O2SAT 93
[2025-02-22 04:00] VITALS: BP 112/64; PULSE 75; RESP 18; TEMP 36.4; O2SAT 94
[2025-02-22 08:00] VITALS: BP 112/75; PULSE 75; RESP 18; TEMP 36.8; O2SAT 98
[2025-02-22 10:46] LABS: BASOPHILS % 0.6 % (0.0-2.0); EOSINOPHILS % 4.5 % (0.0-5.0); HEMATOCRIT. 44.4 % (36.0-48.0); HEMOGLOBIN. 14.1 g/dL (12.0-16.0); LYMPHOCYTES % 14.1 % (20.0-50.0); MEAN PLATELET VOLUME 8.7 fl (7.4-10.4); MONOCYTES % 9.6 % (2.0-8.0); NEUTROPHILS % 71.2 % (40.0-76.0); PLATELET 263 x1000/uL (130-400); RED BLOOD CELL COUNT 4.81 mill/uL (4.2-5.4); RED CELL DISTRIBUTION WIDTH 16.0 % (11.6-14.6)
[2025-02-22 10:59] LABS: CREATININE 1.4 mg/dL (0.6-1.0); UREA NITROGEN BLOOD 20.0 mg/dL (9-23)
[2025-02-22 11:02] LABS: T4 FREE 1.49 ng/dL (0.89-1.76)
[2025-02-22 12:00] VITALS: BP 132/97; PULSE 84; RESP 18; TEMP 37.1; O2SAT 98
[2025-02-22 16:00] VITALS: BP 115/82; PULSE 83; RESP 18; TEMP 36.8; O2SAT 100
[2025-02-22 20:00] VITALS: BP 132/72; PULSE 94; RESP 16; TEMP 35.8; O2SAT 97
[2025-02-23] VITALS: BP 139/95; PULSE 74; RESP 17; TEMP 36.3; O2SAT 96
[2025-02-23] MEDS: HYDROCODONE/ACETAMINOPHEN 5/325MG TABLET PO NR (01:47)
[2025-02-23 04:00] VITALS: BP 140/78; PULSE 70; RESP 18; TEMP 36.5; O2SAT 96
[2025-02-23 08:00] VITALS: BP 127/92; PULSE 75; RESP 18; TEMP 36.6; O2SAT 98
[2025-02-23 12:00] VITALS: BP 131/97; PULSE 81; RESP 16; TEMP 36.5; O2SAT 97
[2025-02-23 14:16] VITALS: BP 132/78; PULSE 78; RESP 16; TEMP 98.6
== END 2025-02-23 14:20 | disposition home or self-care (01) | DRG 194 ==
LOC: ER 19:39 → 5WST 02-21 00:15 → EDBEDREQTM 02-21 00:26 → EDBEDREQDT 02-21 00:26 → EDBEDREQ 02-21 00:26 → ENRESERV 02-21 00:47
PROVIDERS: ADMIT Internal Medicine; ATTEND Internal Medicine
DX: I13.0 Hypertensive heart and chronic kidney disease with heart failure and stage 1 through stage 4 chronic kidney disease, or unspecified chronic kidney disease (principal); I21.4 Non-ST elevation (NSTEMI) myocardial infarction; I67.1 Cerebral aneurysm, nonruptured; N17.9 Acute kidney failure, unspecified; N18.4 Chronic kidney disease, stage 4 (severe); K62.5 Hemorrhage of anus and rectum; I50.23 Acute on chronic systolic (congestive) heart failure; F14.10 Cocaine abuse, uncomplicated; J44.89 Other specified chronic obstructive pulmonary disease; E78.5 Hyperlipidemia, unspecified; I42.7 Cardiomyopathy due to drug and external agent; E83.42 Hypomagnesemia; T50.1X5A Adverse effect of loop [high-ceiling] diuretics, initial encounter; F19.90 Other psychoactive substance use, unspecified, uncomplicated; Y92.89 Other specified places as the place of occurrence of the external cause; Z79.51 Long term (current) use of inhaled steroids; Z79.899 Other long term (current) drug therapy; Z87.891 Personal history of nicotine dependence; Z91.148 Patient's other noncompliance with medication regimen for other reason; R05.3 Chronic cough
CPT/HCPCS: 36415; 71045; 80048; 80061; 80076; 82040; 82550; 83605; 83735; 83880; 84145; 84439; 84443; 84484; 85025; 93005; 93970; 94070; 94640; 94664; 99285; J1650; J1938; J2470; J3475

== ENCOUNTER 2025-02-27 18:08 | Inpatient (IN) | payer MEDICAID ==
[~2025-02-27] VITALS: Ht 165.1 cm; Wt 67.1 kg
[~2025-02-27 18:08] MED LIST changes: -LEVO750T68 MT; -METH4TAB95 MT; -METR-167 MT
[2025-02-27 18:10] VITALS: O2SAT 94
[2025-02-27 18:35] LABS: BASOPHILS % 1.2 % (0.0-2.0); EOSINOPHILS % 2.7 % (0.0-5.0); HEMATOCRIT. 35.0 % (36.0-48.0); HEMOGLOBIN. 11.1 g/dL (12.0-16.0); LYMPHOCYTES % 17.6 % (20.0-50.0); MEAN PLATELET VOLUME 8.1 fl (7.4-10.4); MONOCYTES % 13.2 % (2.0-8.0); NEUTROPHILS % 65.3 % (40.0-76.0); PLATELET 272 x1000/uL (130-400); RED BLOOD CELL COUNT 3.81 mill/uL (4.2-5.4); RED CELL DISTRIBUTION WIDTH 16.1 % (11.6-14.6)
[2025-02-27 18:53] LABS: UREA NITROGEN BLOOD 33 mg/dL (9-23)
[2025-02-27 18:55] LABS: ASPARTATE AMINOTRANSFERASE 39 IU/L (<34); BILIRUBIN DIRECT 0.3 mg/dL (<=3.0); BILIRUBIN TOTAL 0.7 mg/dL (0.1-1.0); CREATININE 1.9 mg/dL (0.6-1.0); PROTEIN TOTAL 6.3 g/dL (6.0-8.3)
[2025-02-27 19:14] LABS: TROPONIN I HIGH SENSITIVITY 753 ng/L (3.0-34)
[2025-02-27 21:45] VITALS: BP 146/109; PULSE 98; RESP 20; TEMP 36.0288; TEMP 37; O2SAT 98
[2025-02-27] MEDS ORDERED: IOHEXOL-350 100 ML BOTTLE ONE (23:41)
[2025-02-28] VITALS: BP 154/118; PULSE 98; RESP 18; TEMP 36.8; O2SAT 98
[2025-02-28] MEDS: HYDROCODONE/ACETAMINOPHEN 10/325MG TABLET PO PRN (01:53)
[2025-02-28] MEDS ORDERED: NALOXONE HCL 0.4MG/ML VIAL IV PRN (02:00)
[2025-02-28 04:00] VITALS: BP 147/111; PULSE 94; RESP 19; TEMP 36.9; O2SAT 99
[2025-02-28] MEDS: HYDRALAZINE HCL 50MG TABLET PO SCH (06:50)
[2025-02-28] MEDS: FUROSEMIDE 40MG/4ML VIAL IVP SCH (07:35)
[2025-02-28 08:00] VITALS: BP 122/94; PULSE 81; RESP 17; TEMP 36.4; O2SAT 99
[2025-02-28] MEDS: ASPIRIN 81MG TABLET PO SCH (08:52)
[2025-02-28] MEDS: LOSARTAN 50 MG TABLET PO SCH (08:52)
[2025-02-28] MEDS: AMLODIPINE 10MG TABLET PO SCH (08:52)
[2025-02-28 11:54] LABS: CREATININE 1.7 mg/dL (0.6-1.0)
[2025-02-28 11:56] LABS: TRIGLYCERIDE 95.0 mg/dL (0-150); UREA NITROGEN BLOOD 27.0 mg/dL (9-23)
[2025-02-28 11:57] LABS: LDL CHOLESTEROL 88.0 mg/dL (5-100)
[2025-02-28 12:00] VITALS: BP 127/91; PULSE 83; RESP 17; TEMP 36.4; O2SAT 100
[2025-02-28 16:00] VITALS: BP 115/86; PULSE 83; RESP 17; TEMP 36.5; O2SAT 99
[2025-02-28 20:00] VITALS: BP 131/91; PULSE 75; RESP 18; TEMP 36.5; O2SAT 95
[2025-03-01] VITALS: BP 131/82; PULSE 82; RESP 18; TEMP 35.9; O2SAT 96
[2025-03-01 04:00] VITALS: BP 145/104; PULSE 82; RESP 18; TEMP 36.4; O2SAT 95
[2025-03-01 08:00] VITALS: BP 128/92; PULSE 82; RESP 16; TEMP 36.4; O2SAT 94
[2025-03-01 08:30] VITALS: BP 128/92; PULSE 82; RESP 16; TEMP 36.4; O2SAT 96
[2025-03-01] MEDS ORDERED: ALBU18HF2 IH (10:42)
[2025-03-01] MEDS ORDERED: LOSA100T33 MT (10:42)
[2025-03-01] MEDS ORDERED: SPIR25TA6 MT (10:42)
[2025-03-01] MEDS ORDERED: CARV12.545 MT (10:42)
[2025-03-01] MEDS ORDERED: FURO-151 MT (10:42)
[2025-03-01 12:55] VITALS: BP 128/92; PULSE 82; RESP 18; TEMP 97.6
== END 2025-03-01 13:53 | disposition home or self-care (01) | DRG 133 ==
LOC: ER 18:08 → 6WST 19:27 → EDBEDREQ 19:32 → EDBEDREQTM 19:32 → ENRESERV 20:38
PROVIDERS: ADMIT Internal Medicine; ATTEND Internal Medicine
DX: J96.00 Acute respiratory failure, unspecified whether with hypoxia or hypercapnia (principal); I50.23 Acute on chronic systolic (congestive) heart failure; J68.0 Bronchitis and pneumonitis due to chemicals, gases, fumes and vapors; I42.7 Cardiomyopathy due to drug and external agent; N17.9 Acute kidney failure, unspecified; K62.5 Hemorrhage of anus and rectum; Z79.01 Long term (current) use of anticoagulants; I13.0 Hypertensive heart and chronic kidney disease with heart failure and stage 1 through stage 4 chronic kidney disease, or unspecified chronic kidney disease; N18.4 Chronic kidney disease, stage 4 (severe); F14.10 Cocaine abuse, uncomplicated; N20.0 Calculus of kidney; T59.891A Toxic effect of other specified gases, fumes and vapors, accidental (unintentional), initial encounter; Y92.89 Other specified places as the place of occurrence of the external cause; F17.210 Nicotine dependence, cigarettes, uncomplicated; Z71.51 Drug abuse counseling and surveillance of drug abuser; Z91.148 Patient's other noncompliance with medication regimen for other reason; Z79.899 Other long term (current) drug therapy; Z79.51 Long term (current) use of inhaled steroids
CPT/HCPCS: 36415; 71045; 71275; 80048; 80061; 80076; 83735; 83880; 84484; 85025; 93005; 99285; J1938; Q9967